=== PATIENT | female | born 1940 | race Caucasian/White ===

== ENCOUNTER → 2016-06-10 | Outpatient (CLI) | payer OTHER ==
[~2016-06-10] VITALS: Ht 157.5 cm; Wt 59.5 kg
[~2016-06-10] MED LIST: ACETAMINOPHEN-1 EAC1 PO; ACTONEL 150 MG150 MG PO; AMOX TR-K CLV1 EAC3 PO; ASPIRIN81 M2 PO; B COMPLETE1 EAC1 PO; BRINTELLIX5 MG PO; CALCIUM500 MG PO; CELEBREX 200 M200 M1 PO; CELEBREX 200 M200 MG PO; CENTRUM SILVER1 EAC4 PO; CLONAZEPAM 0.50.5 M1 PO; CLONAZEPAM 1 MG1 M1 PO; CLONAZEPAM PO; CLONAZEPAM2 MG PO; COMPAZINE5 M1 PO; DILAUDID 2 MG TA2 MG PO; DURAGESIC1 EACH TD; FENTANYL PA12 MCG/HR TD; FENTANYL PA12 MCG/HR TP; FENTANYL PA25 MCG/HR TD; FISH OIL 1,001000 M2 PO; HYDROCODON-ACE1 EAC5 PO; HYDROCODON-ACE1 EAC7 PO; HYDROCODONE-AP1 EA11 PO; HYDROXYCHLOROQ200 M1 PO; IMITREX 50 MG T50 MG PO; LINZESS145 MCG PO; LIPITOR 20 MG T20 M1 PO; LYRICA 50 MG50 MG PO; MEDROLDOSEPACK PO; MELATONIN3 MG PO; MELOXICAM7.5 MG PO; METOCLOPRAMIDE 55 M1 PO; METOPROLOL SUCC25 M1 PO; MIRALAX17 GM PO; NORCO 10-325 T1 EACH PO; NORCO 5-325 TA1 EACH PO; OXYCODONE-ACET1 EACH PO; PERCOCET 10-321 EACH PO; PERCOCET 5-3251 EACH PO; PHENERGAN 25 MG25 M1 PO; TRAMADOL 50 MG50 MG PO; TRAMADOL HCL50 MG PO; VITAMIN D2000 UNIT PO; WELLBUTRIN 100100 MG PO; [UNRECOGNIZED DRUG - OTHER] PO
--- NOTE | ~2016-06-10 | HPC ---
[address] [place] [address] PAIN MANAGEMENT CONSULTATION Name: TAMRA TEJEDA [facility] [id number] Admission: 06/10/16 Attend Phys: Parker Strange DO Discharge: Date of : 42 Report #: [id number] THIS REPORT FOR: //name// CC: Peri Strange The patient is a pleasant 75-year-old female being treated for bilateral DJD (knees), chronic pain syndrome requiring complex medication management. Last seen in pain clinic on 06/04/2016. We ordered x-rays of her knees, mild tricompartment DJD in the right knee and moderate DJD in the left knee. Her right knee is more problematic. In last visit, we had discussed moving forward with a series of Synvisc injections. She had a series of Synvisc injections in this right knee nearly a year ago in July and August of 2015 with good relief for greater than 6 months. ASSESSMENT: Symptomatic degenerative joint disease, right knee, subjective pain score 4 on 0-10 visual analog scale. PROCEDURE NOTE: After written informed consent was obtained, the patient was taken to fluoroscopy suite, placed in supine position with bolstering to the right knee. After surgical prep and drape, skin wheal with Xylocaine was raised. A 22-gauge Angiocath was inserted from a superior lateral aspect in an inferior medial trajectory under the patella. Imaging showed good needle placement. Fluoroscopy time was under 5 seconds, 2 mL of Synvisc (Hylan G-F 20) was injected. The Angiocath was removed. The area was cleansed, Band-Aids applied. The patient was told to watch the area for signs of infection including swelling, erythema, generalized malaise, or hyperpyrexia. Follow up in 1 week for repeat. By: [id number] Parker Strange DO /nt
== END | disposition home or self-care (01) ==
LOC: PAIN 06-05 12:35
DX: M17.11 Unilateral primary osteoarthritis, right knee (principal); G89.4 Chronic pain syndrome; G43.909 Migraine, unspecified, not intractable, without status migrainosus; Z87.891 Personal history of nicotine dependence

== ENCOUNTER → 2016-06-18 | Outpatient (CLI) | payer OTHER ==
[~2016-06-18] VITALS: Ht 157.5 cm; Wt 60.1 kg
--- NOTE | ~2016-06-18 | HPC ---
[facility] [place] [address] PAIN MANAGEMENT CONSULTATION Name: TAMRA TEJEDA [facility] [id number] Admission: 06/18/16 Attend Phys: Parker Strange DO Discharge: Date of : 42 Report #: [id number] THIS REPORT FOR: //name// CC: Peri Strange SUBJECTIVE: The patient is a very pleasant 75-year-old female being treated for DJD, right knee. She also has comorbidities with chronic pain syndrome requiring complex medication management. She had her first in the series of 3 Synvisc injections, last week, 06/10/2016. She presents to pain clinic today for injection #2. She has noted only nominal relief for the first injection, as to be expected. PHYSICAL EXAMINATION: Unchanged. Vital signs are stable. She is afebrile. There is no ballottable edema in the right knee. ASSESSMENT: Symptomatic degenerative joint disease, right knee. PROCEDURE: Synvisc injection #2, right knee under fluoroscopy. PROCEDURE: After written and informed consent was obtained, the patient taken to fluoroscopy suite, placed in prone position. After sterile prep and drape, skin wheal was raised. Skin wheal with Xylocaine was raised. A #20-gauge Angiocath was placed from superior lateral entry point in an inferior medial trajectory under the patella, negative aspiration was accomplished. AP and lateral projections showed good needle placement with a needle and catheter in the joint. 2 mL o Synvisc (Hylan G-F 20) was injected and the catheter was removed. The area was cleansed, Band-Aids applied. The patient monitored for an appropriate period of time, discharged in good stable condition, told to use ice to the area today. Follow up in 1 week for injection #3. <ELECTRONICALLY SIGNED> By: Parker Strange DO 06/21/16 1130 1009 1055 Parker Strange DO /nt
[2016-06-18 10:08] VITALS: BP 119/75
== END ==
LOC: PAIN 07:01
DX: M17.11 Unilateral primary osteoarthritis, right knee (principal); G89.4 Chronic pain syndrome; Z87.891 Personal history of nicotine dependence

== ENCOUNTER → 2016-06-25 | Outpatient (CLI) | payer OTHER ==
[~2016-06-25] VITALS: Ht 157.5 cm; Wt 60.3 kg
--- NOTE | ~2016-06-25 | HPC ---
[address] [address] PAIN MANAGEMENT CONSULTATION Name: TAMRA TEJEDA [facility]: [facility] [id number] Admission: 06/25/16 Attend Phys: Parker Strange DO Discharge: Date of : 42 Report #: [id number] THIS REPORT FOR: //name// CC: Peri Strange DATE OF SERVICE: 06/25/2016 The patient is a 75-year-old female, prior seen in the pain clinic for DJD, right knee and chronic pain concerns, requiring complex medication management. She presents to pain clinic today for a Synvisc injection #3 in the right knee. The patient notes incremental improvement with the injections. The patient wished to proceed with the injection today. PROCEDURE NOTE: She was taken to fluoroscopy suite, placed in supine position. Skin overlying the knee was prepped with ChloraPrep. Skin wheal with Xylocaine was raised. We chose a superior medial entry point with an inferior lateral trajectory. Needle was easily placed. AP and lateral fluoroscopy images show good placement. A 20-gauge Angiocath was easily advanced under the patella. Negative aspiration was accomplished, 2 mL of hylan GF-20 (Synvisc) was injected. Catheter was removed, area was cleansed, Band-Aids applied. The patient monitored for an appropriate period of time, discharged in good and stable condition. Fluoroscopy was 10 seconds. The patient will follow up in 5 weeks for medication management. <ELECTRONICALLY SIGNED> By: Parker Strange DO 06/25/16 1138 1039 1111 Parker Strange DO /nt
[2016-06-25 10:12] VITALS: BP 136/77
== END | disposition home or self-care (01) ==
LOC: PAIN 06:57
DX: M17.11 Unilateral primary osteoarthritis, right knee (principal); G89.29 Other chronic pain; G43.909 Migraine, unspecified, not intractable, without status migrainosus; G45.9 Transient cerebral ischemic attack, unspecified

== ENCOUNTER → 2016-06-28 | Outpatient (CLI) | payer OTHER ==
--- NOTE | ~2016-06-28 | 2DMMODE ---
[facility] [place] [address] 2 D/M-MODE ECHOCARDIOGRAM Name: TAMRA TEJDEA Room #: REG [facility]#: [id number] Admission: 06/28/16 Attend Phys: Austin Mitchell MD Discharge: Date of : 42 Date of Service: 06/28/16 1349 Report #: [id number] THIS REPORT FOR: //name// APPROVED REPORT Study performed: 06/28/2016 12:00:21 EXAM: Comprehensive 2D, Doppler, and color-flow Echocardiogram Patient Location: Out-Patient Blood Pressure: 76/58 mmHg HR: 55 bpm Rhythm: NSR Other Information Study Quality: Good/Low parasternal window Indications CAD Hx: NSTEMI, COPD, HTLP, CAD 2D Dimensions RVDd: 34.96 mm LVEF(%): 55.51 (>50%) IVSd: 9.01 (7-11mm) LVOT Diam: 19.38 (18-24mm) LVDd: 42.92 mm PWd: 8.62 (7-11mm) LVDs: 30.62 (25-40mm) Aortic Root: 36.76 mm Lakhani's LVEF: 55.51 % Volumes Left Atrial Volume (Systole) Single Plane 4CH: 25.63 mL Single Plane 2CH: 39.19 mL LA ESV Index: 24.00 mL/m2 Aortic Valve AoV Peak Cayetano.: 1.38 m/s AI PHT: 664.03 ms AO Peak Gr.: 7.64 mmHg LV Max P.66 mmHg LV Max: 1.29 m/s AI Vmax: 4.12 m/s AI [place]: 1.80 m/s2 Mitral Valve [facility] [address] [address] 2 D/M-MODE ECHOCARDIOGRAM Name: TAMRA TEJEDA Abrahan Room #: REG [facility]#: [id number] Admission: 06/28/16 Attend Phys: uAstin Mitchell MD Discharge: Date of : 42 Date of Service: 06/28/16 1349 Report #: [id number] MV PHT: 54.15 ms MV E Max Cayetano.: 1.00 m/s E/A Ratio: 1.2 MV A Cayetano.: 0.81 m/s MV Decel. Time: 186.74 ms Pulmonary Valve PV Peak Cayetano.: 0.98 m/s PV Peak Gr.: 3.86 mmHg Tricuspid Valve TR Peak Cayetano.: 2.95 m/s RAP Estimate: 5.00 mmHg TR Peak Gr.: 34.85 mmHg RVSP: 40.00 mmHg Left Ventricle The left ventricle is normal size. There is normal LV segmental wall motion. There is normal left ventricular wall thickness. The left ventricular systolic function is normal. LVEF is 55%. Grade II - pseudonormal filling dynamics. Right Ventricle The right ventricle is normal size. The right ventricular systolic function is normal. Atria The left atrium size is normal. The right atrium size is normal. Aortic Valve Aortic valve leaflets are mildly thickened. Mild aortic regurgitation. There is no aortic valvular stenosis. Mitral Valve The mitral valve is normal in structure. Mild mitral regurgitation. Tricuspid Valve The tricuspid valve is normal in structure. There is mild tricuspid regurgitation. The right atrial pressure is estimated at 5 mmHg. There is mild-moderate pulmonary hypertension. Estimated PAP of 40mmHg. Pulmonic Valve The pulmonary valve is normal in structure. Mild pulmonic regurgitation. Great Vessels There is borderline aortic root dilation. Ascending aorta is not well visualized. IVC is normal in size and collapses >50% with [facility] [address] [place] [address] 2 D/M-MODE ECHOCARDIOGRAM Name: TAMRA TEJEDA Room #: REG [facility]#: [id number] Admission: 06/28/16 Attend Phys: Austin Mitchell MD Discharge: Date of : 42 Date of Service: 06/28/16 1349 Report #: [id number] inspiration. Pericardium There is no pericardial effusion. <Conclusion> The left ventricle is normal size. There is normal left ventricular wall thickness. The left ventricular systolic function is normal. The right ventricle is normal size. The left atrium size is normal. Mild aortic regurgitation. Mild mitral regurgitation. There is mild tricuspid regurgitation. The right atrial pressure is estimated at 5 mmHg. There is mild-moderate pulmonary hypertension. Estimated PAP of 40mmHg. <ELECTRONICALLY SIGNED> By: Austin Mitchell MD 06/28/16 1349 1349 1349 Austin Mitchell MD /INF
== END ==
LOC: CV 12:11
DX: I25.10 Atherosclerotic heart disease of native coronary artery without angina pectoris (principal); I21.4 Non-ST elevation (NSTEMI) myocardial infarction; J44.9 Chronic obstructive pulmonary disease, unspecified

== ENCOUNTER → 2016-07-19 | Outpatient (CLI) | payer OTHER ==
[~2016-07-19] VITALS: Ht 157.5 cm; Wt 58.1 kg
[~2016-07-19] MED LIST changes: +VENLAFAXINE HCL25 MG PO
--- NOTE | ~2016-07-19 | HPC ---
[facility] [place] [address] PAIN MANAGEMENT CONSULTATION Name: TAMRA TEJEDA Room #: REG [facility] Angel#: [id number] Admission: 07/19/16 Attend Phys: Parker Strange DO Discharge: Date of : 42 Report #: [id number] THIS REPORT FOR: //name// CC: Peri Strange The patient is a 76-year-old female, prior seen in the pain clinic 06/25/2016. She completed a series of three right Synvisc injections for right knee. Was c ontinued on her baseline medication including Duragesic 25 mcg q. 72 hours and Tylenol No. 3 one tablet up to 4 times a day as needed for pain. Returns to pain clinic today, she was seen for a moderately prolonged visit from 12:47 to 13:15, greater than 50% of the 25+ minute visit was spent counseling the patient. She notes while she was generally doing well with her current medications, she has been having some increasing issues recently, states she has been very drowsy feeling "faint" easily diaphoretic. She had travelled to [place] to visit her brother for a week, states she did not do much there and because of that did not need much breakthrough pain medicine. She was curious if she had gone from 3-4 per day to 0-1 per day use of her Tylenol No. 3 that she could be experiencing some opiate withdrawal symptoms. I assured her that with 25 mcg of Duragesic on board that this would be fairly unlikely, codeine is a fairly weak opiate agonist. Nonetheless, she does have ongoing issues feeling a little bit again sweaty, dizzy, faint and sleeping a great deal. She notes if she does any activity, bending to do a load of wash her back pain becomes quite problematic. She has had a history of a "mild heart attack" in the distant past. She denies any acute chest pain. PHYSICAL EXAMINATION: GENERAL: Shows a 76-year-old female, BMI is 23.4 kilograms per meter squared. She does appear a little bit pale. VITAL SIGNS: Blood pressure is 115/76, pulse 64, respirations are 16. Room air oxygen saturation 97%. She is afebrile with a temperature 98.1. PULMONARY: Auscultation is unremarkable. HEART: Regular rhythmical without murmur. MUSCULOSKELETAL: Diffuse tenderness across the low back. No discrete trigger points are noted though she has some tenderness in the thoracic and lumbar paravertebral muscles. ASSESSMENT: Degenerative joint disease, bilateral knees. Again increasing pain in the right knee, though no ballotable edemas are appreciable here today. Diffuse tenderness in the back with a component of axial back pain. Some chronic depression and anxiety, chronic pain syndrome requiring complex medication management. [facility] [address] [place] [address] PAIN MANAGEMENT CONSULTATION Name: TAMRA TEJEDA Room #: REG [facility] Ortiz#: [id number] Admission: 07/19/16 Attend Phys: Parker Strange DO Discharge: Date of : 42 Report #: [id number] RECOMMENDATION: After discussion with the patient today, we have ultimately elected to continue Duragesic at 25 mcg q. 72 hours and Tylenol No. 3 one tablet 3-4 times a day as needed for breakthrough pain. I have added venlafaxine 25 mg a half tablet at bedtime for 1 week and then up to one tablet, hopefully this can help with the myofascial component of pain. I did suggest that if she continues to feel somewhat presyncopal type symptoms and continue to have some diaphoresis she absolutely needs to follow up with her generalist physician, Dr. Peri Bryant. I strongly encouraged her to make an appointment today to see Dr. Bryant later this week. She can always cancel that appointment if she is feeling better, but I would like for her to get in to see her generalist physician should any of her current symptoms continue. I did suggest if she has any significant untoward changes in her health, i.e., weakness, syncope, nausea, chest pain she needs to call 911 and get to the ER. The patient discharged in good and stable condition after moderately prolonged visit, greater than 25 minutes was spent counseling the patient. Medications as noted above. Follow up in 2 months to evaluate efficacy of medication changes. <ELECTRONICALLY SIGNED> By: Parker Strange DO 07/21/16 0932 1526 0234 Parker Strange DO /nt
[2016-07-19 12:40] VITALS: BP 115/76
== END ==
LOC: PAIN 07-15 07:03
DX: M17.0 Bilateral primary osteoarthritis of knee (principal); F41.8 Other specified anxiety disorders; G89.29 Other chronic pain; Z87.891 Personal history of nicotine dependence

== ENCOUNTER → 2016-08-19 | Outpatient (CLI) | payer OTHER ==
[~2016-08-19] VITALS: Ht 157.5 cm; Wt 60.1 kg
[~2016-08-19] MED LIST changes: +HYDROCODONE-AP1 EAC6 PO; +MS CONTIN15 MG PO
--- NOTE | ~2016-08-19 | HPC ---
[facility] [place] [address] PAIN MANAGEMENT CONSULTATION Name: TAMRA TEJEDA Room #: REG [facility] Ortiz#: [id number] Admission: 08/19/16 Attend Phys: Parker Strange DO Discharge: Date of : 42 Report #: [id number] THIS REPORT FOR: //name// CC: Peri Strange HISTORY OF PRESENT ILLNESS: The patient is a 76-year-old female well known to the pain clinic, being treated for axial back pain and bilateral knee osteoarthritis requiring complex medication management. She was last seen in the pain clinic 07/19/2016 and continued on Duragesic 25 mcg q. 72 hours and Tylenol No. 3 for breakthrough pain. I initiated venlafaxine 25 mg at bedtime to help with chronic pain syndrome. She is status post 3 Synvisc injections in the right knee with some improvement of pain. Concern at last visit, she was feeling a little diaphoretic and had some presyncopal symptoms. I suggested she try using her p.r.n. Tylenol little less frequently. The patient returns to clinic today. She has returned to her general health status, though she does note that she feels her current medications are not providing sufficient analgesia, noting some tolerance to the medications. The patient did see a Dr. Cooley at the [facility]. This orthopedic surgeon told her that she probably was not a candidate for total knee arthroplasty. PHYSICAL EXAMINATION: Shows a 76-year-old female, BMI is 24.2 kg/m2. Vital signs stable as noted on the EMR. She is tender in the T12-L2 lumbar paravertebral muscles. No discrete trigger points are noted. Lower extremity strength is generally symmetric, no ballotable edema appreciable in the knees, though subjective pain is noted here. We reviewed the fact that opiate medications are being used to provide analgesia adequate to support activities of daily living, not attempting to achieve a specific pain score on the 0-10 Visual Analog Scale. The current opiate medications are providing sufficient analgesia to allow the patient to participate in activities of daily living. The patient is not exhibiting any aberrant behavior suggestive of drug diversion. The patient is not having any adverse reactions to medications. The patient is not suffering from daytime somnolence or mental acuity changes. The patient is managing opiate-induced constipation with appropriate cjho-gyj-tljpiwi agents and dietary considerations. The patient was counseled on concern for caution with operating a motor vehicle while using opiate medications. A physical exam was performed and the patient's functional status was evaluated. All patients with back pain were advised against the bed rest greater than 4 days and were advised to return to normal activities. Pain score assessment was noted and the treatment plan was reviewed with the patient. All current [address] [address] PAIN MANAGEMENT CONSULTATION Name: TAMRA TEJEDA Room #: REG CL Angel#: [id number] Admission: 08/19/16 Attend Phys: Parker Strange DO Discharge: Date of : 42 Report #: [id number] medications, both prescribed and OTC were reviewed and reconciled on the electronic medical record. Tobacco screening was accomplished and smoking cessation was advised when indicated. BMI was noted and diet/exercise modification was recommended for all patients following outside normal parameters. I reviewed with the patient today their responsibilities to safeguard prescription medications, reviewed their responsibility to utilize medications only as prescribed by the physician. They are to seek and receive pain medications only from 1 physician group ( [facility]). They are to use 1 pharmacy and keep the clinic informed if they change pharmacies. Their responsibilities include making followup visits in a timely fashion and to avoid abrupt discontinuation of medication usage. Their responsibilities further include bringing their medications (bottles from the pharmacy with residual pills) to the visit for possible confirmation of pill counts and the patient understands it is their responsibility to submit to random drug screens to ensure both that the medications prescribed are present, and that no other controlled substances are present. All prescriptions provided today were generated electronically. ASSESSMENT: Chronic pain syndrome, osteoarthritis affecting bilateral knees and axial back pain requiring complex medication management. I reviewed the patient's diagnostic studies including x-rays of the thoracic spine and an MRI of the lumbar spine all somewhat dated from [id number], but no dramatic pathology was noted. RECOMMENDATIONS: I had a long discussion with the patient today, in fact she was seen from 1235 to 1300. Greater than 50% of this 25+ minute visit was spent counseling the patient. We have elected to try an opiate rotation, discontinued Duragesic tonight and start MS Contin 15 mg 1 at bedtime and then q.8 hours the subsequent day and ongoing. We will discontinue Tylenol No. 3 for breakthrough pain and try hydrocodone 5/325, limit to 2-3 tablets a day, 75 tablets for 30 days. We will have the patient follow up in 3-4 weeks to evaluate efficacy of medication changes. <ELECTRONICALLY SIGNED> By: Parker Strange DO 08/20/16 0713 1335 0220 Parker Strange DO /nt
[2016-08-19 12:29] VITALS: BP 121/71
== END | disposition home or self-care (01) ==
LOC: PAIN 06:29
DX: M17.0 Bilateral primary osteoarthritis of knee (principal); G89.4 Chronic pain syndrome; Z98.890 Other specified postprocedural states; Z87.891 Personal history of nicotine dependence

== ENCOUNTER → 2016-09-16 | Outpatient (CLI) | payer OTHER ==
[~2016-09-16] VITALS: Ht 157.5 cm; Wt 59.4 kg
[~2016-09-16] MED LIST changes: +MORPHABOND ER15 MG PO
--- NOTE | ~2016-09-16 | HPC ---
[facility] [address] PAIN MANAGEMENT CONSULTATION Name: TAMRA TEJEDA Room #: REG [facility].#: [id number] Admission: 09/16/16 Attend Phys: Parker Strange DO Discharge: Date of : 42 Report #: [id number] THIS REPORT FOR: //name// CC: Peri Strange HISTORY OF PRESENT ILLNESS: The patient is a 76-year-old female being treated for axial back pain, DJD affecting bilateral knees, right greater than left, requiring complex medication management. Last visit 08/19/2016, we rotated from Duragesic 25 mcg and Tylenol No.3 for breakthrough pain to MS Contin 15 mg q. 8 hours and hydrocodone 5/325 for breakthrough pain. She prior had had Synvisc injection to the right knee back in May. Returns to pain clinic today. She thinks morphine is affective, but thinks the hydrocodone is not. In fact, she only used about 18 of the hydrocodone tablets, she brought back 47 for discharge. We tried venlafaxine to help with sleep and some anxiety. She felt it left her too hungover. Notes today pain is 8 on a 0-10 visual analog scale, primarily right knee. The pain is exacerbated with standing and walking. PHYSICAL EXAMINATION: Shows a 76-year-old female, BMI is 24 kilograms per meter squared. Vital signs are stable. Does have some ballottable edema in the right knee, no erythema or calor is noted. We reviewed the fact that opiate medications are being used to provide analgesia adequate to support activities of daily living, not attempting to achieve a specific pain score on the 0-10 Visual Analog Scale. The current opiate medications are providing sufficient analgesia to allow the patient to participate in activities of daily living. The patient is not exhibiting any aberrant behavior suggestive of drug diversion. The patient is not having any adverse reactions to medications. The patient is not suffering from daytime somnolence or mental acuity changes. The patient is managing opiate-induced constipation with appropriate kywu-zam-gqygubb agents and dietary considerations. The patient was counseled on concern for caution with operating a motor vehicle while using opiate medications. A physical exam was performed and the patient's functional status was evaluated. All patients with back pain were advised against the bed rest greater than 4 days and were advised to return to normal activities. Pain score assessment was noted and the treatment plan was reviewed with the patient. All current medications, both prescribed and OTC were reviewed and reconciled on the electronic medical record. Tobacco screening was accomplished and smoking cessation was advised when indicated. BMI was noted and diet/exercise modification was recommended for all patients following outside normal parameters. I reviewed with the patient today their responsibilities to [address] [address] PAIN MANAGEMENT CONSULTATION Name: TAMRA TEJEDA Room #: REG CL Angel#: [id number] Admission: 09/16/16 Attend Phys: Parker Strange DO Discharge: Date of : 42 Report #: [id number] prescription medications, reviewed their responsibility to utilize medications only as prescribed by the physician. They are to seek and receive pain medications only from 1 physician group ( [facility]). They are to use 1 pharmacy and keep the clinic informed if they change pharmacies. Their responsibilities include making followup visits in a timely fashion and to avoid abrupt discontinuation of medication usage. Their responsibilities further include bringing their medications (bottles from the pharmacy with residual pills) to the visit for possible confirmation of pill counts and the patient understands it is their responsibility to submit to random drug screens to ensure both that the medications prescribed are present, and that no other controlled substances are present. All prescriptions provided today were generated electronically. ASSESSMENT: Degenerative joint disease, axial back pain, right knee ballottable edema requiring complex medication management. RECOMMENDATION: 1. We have elected to continue MS Contin 15 mg q. 8 hours. We will rotate from hydrocodone back to Tylenol No.3 for breakthrough pain and limit 75 tablets, 1 tablet 2-3 times a day for breakthrough pain. 2. We talked about doing a Synvisc in her right knee, arthrocentesis and perhaps steroid injection. Typically, she has had injections at Dr. Say More's office with some efficacy. I told her either he or I can inject the knee, but if the ballotable edema continues, we should probably aspirate it, I think it will help with her comfort. She does note that the amount of edema somewhat waxes and wanes. By: [id number] Parker Strange, DO /nt
[2016-09-16 12:51] VITALS: BP 115/73
== END | disposition home or self-care (01) ==
LOC: PAIN 06:45
DX: M17.0 Bilateral primary osteoarthritis of knee (principal); Z87.891 Personal history of nicotine dependence

== ENCOUNTER → 2016-10-04 | Outpatient (CLI) | payer OTHER ==
[~2016-10-04] VITALS: Ht 157.5 cm; Wt 58.6 kg
[2016-10-04 13:38] VITALS: BP 123/76
== END | disposition home or self-care (01) ==
LOC: PAIN 06:46
DX: M17.11 Unilateral primary osteoarthritis, right knee (principal); M54.16 Radiculopathy, lumbar region; Z87.891 Personal history of nicotine dependence

== ENCOUNTER → 2016-11-19 | Outpatient (CLI) | payer OTHER ==
[~2016-11-19] VITALS: Ht 157.5 cm; Wt 60.3 kg
--- NOTE | ~2016-11-19 | HPC ---
[facility] [place] [address] [address] PAIN MANAGEMENT CONSULTATION Name: TAMRA TEJEDA Room #: REG [facility] Angel#: [id number] Admission: 11/19/16 Attend Phys: Parker Strange DO Discharge: Date of : 42 Report #: [id number] THIS REPORT FOR: //name// CC: Peri Strange The patient is a 76-year-old female being treated for lumbar radiculopathy, DJD affecting bilateral knees, axial back pain requiring complex medication management. Last seen in pain clinic on 10/04/2016. The patient is having increasing pain in the left knee. I did a left knee arthrocentesis and steroid injection. She notes significant improvement in pain with this. She is continued on MS Contin 15 mg q.8 hours (rotated from Duragesic 25 mcg q.72 hours, I believe, 2 office visits ago). Continue Tylenol No. 3 for breakthrough pain. 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 Last urine drug screen on 11/07/2015 was positive for prescribed medications. The patient reports to pain clinic today noting she is actually doing better than she has in some time. Subjective pain score is absent today, gets up to 3 or 4 VAS score with activity. PHYSICAL EXAMINATION: Shows a pleasant 76-year-old female, BMI is 24.3 kg/m2. Vital signs are stable as noted on the EMR. Cervical range of motion is adequate. Rises from chair using armrest. Gait is tandem today. Lumbar flexion is good to just about 90 degrees. No ballottable edema noted in either knee. Extremity range of motion is excellent with flexion to the knees to 110 degrees bilaterally. We reviewed the fact that opiate medications are being used to provide analgesia adequate to support activities of daily living, not attempting to achieve a specific pain score on the 0-10 Visual Analog Scale. The current opiate medications are providing sufficient analgesia to allow the patient to participate in activities of daily living. The patient is not exhibiting any aberrant behavior suggestive of drug diversion. The patient is not having any adverse reactions to medications. The patient is not suffering from daytime somnolence or mental acuity changes. The patient is managing opiate-induced constipation with appropriate haoc-oen-raahzqj agents and dietary considerations. The patient was counseled on concern for caution with operating a motor vehicle while using opiate medications. A physical exam was performed and the patient's functional status was evaluated. All patients with back pain were advised against the bed rest greater than 4 days and were advised to return to normal activities. Pain score assessment was noted and the treatment plan was reviewed with the patient. All current medications, both prescribed and OTC were reviewed and reconciled on the electronic medical record. Tobacco screening was accomplished and smoking cessation was advised when indicated. BMI was noted and diet/[place] [address] PAIN MANAGEMENT CONSULTATION Name: TAMRA TEJEDA Room #: REG [facility] Ortiz#: [id number] Admission: 11/19/16 Attend Phys: Parker Strange DO Discharge: Date of : 42 Report #: [id number] modification was recommended for all patients following outside normal parameters. I reviewed with the patient today their responsibilities to safeguard prescription medications, reviewed their responsibility to utilize medications only as prescribed by the physician. They are to seek and receive pain medications only from 1 physician group ([facility]). They are to use 1 pharmacy and keep the clinic informed if they change pharmacies. Their responsibilities include making followup visits in a timely fashion and to avoid abrupt discontinuation of medication usage. Their responsibilities further include bringing their medications (bottles from the pharmacy with residual pills) to the visit for possible confirmation of pill counts and the patient understands it is their responsibility to submit to random drug screens to ensure both that the medications prescribed are present, and that no other controlled substances are present. All prescriptions provided today were generated electronically. ASSESSMENT: Symptomatic degenerative joint disease, bilateral knees; lumbar radiculopathy; axial back pain requiring complex medication management, stable on baseline medications. RECOMMENDATION: Continue MS Contin 15 mg q.8 hours, continue Tylenol No. 3 p.r.n. breakthrough pain 1-3 tablets a day. The patient does not require renewal of the Tylenol No. 3 prescription. She uses it fairly infrequently and not daily. I did, however, take the liberty of renewing 2 months of the MS Contin baseline opiate. Follow up in 2 months, earlier if needed. <ELECTRONICALLY SIGNED> By: Parker Strange DO 11/22/16 1253 1150 1950 Parker Strange DO /nt
[2016-11-19 10:34] VITALS: BP 120/89
== END ==
LOC: PAIN 07:03
DX: M17.0 Bilateral primary osteoarthritis of knee (principal); M54.16 Radiculopathy, lumbar region

== ENCOUNTER → 2016-12-10 | Outpatient (CLI) | payer OTHER ==
[~2016-12-10] VITALS: Ht 157.5 cm; Wt 61.1 kg
--- NOTE | ~2016-12-10 | HPC ---
[facility] [place] [address] [address] [place] [address] PAIN MANAGEMENT CONSULTATION Name: TAMRA TEJEDA [id number] Admission: 12/10/16 Attend Phys: Parker Strange DO Discharge: Date of : 42 Report #: [id number] THIS REPORT FOR: //name// CC: Peri Strange DATE OF SERVICE: 12/10/2016 The patient is a 76-year-old female, long known to the pain clinic, typically treated for high-risk complex medication management for pain generators including bilateral knees, axial back pain, lumbar radiculopathy. Last seen in pain clinic 11/19/2016, continued on baseline medication including MS Contin 15 mg q. 8 hours with Tylenol No 3 for breakthrough pain. I had prior done a right knee steroid injection and arthrocentesis on 10/04/2016, right knee is getting better. She returns to pain clinic today, she made an appointment earlier this week with significant ongoing pain, left knee. She had run out of her Celebrex and due to holiday earlier in the month, she was actually out for 4 days. She noted significant exacerbation of pain, but she is back on the Celebrex and notes that actually today, the left knee seems to be doing a little better, but pain has been quite problematic in that left knee to the point that she has been unable to bear weight. She notes that she has a little bit of edema in the leg and again significant pain with weightbearing. She denies prior antecedent trauma. Does note, however, today that in general, the knee seems to be improved. PHYSICAL EXAMINATION: Shows a 76-year-old female, BMI is 24.6 kilograms per meter squared. Blood pressure 130/92, pulse 68, respirations are 12. Rises from chair using armrest, nominally antalgic gait. Again, the right knee is fairly unremarkable. Left knee does show some ballottable edema and there is crepitance with deviation of the patella. The medial and lateral collateral as well as the anterior and posterior cruciate ligaments are all intact. ASSESSMENT: Degenerative joint disease, bilateral knees, left knee with still some ballottable edema, though symptoms seemed to be improving at present. RECOMMENDATIONS: No interventional therapy at this time. We will tentatively make an appointment to see the patient in 2 weeks. If pain is continuing in that knee, we will consider left knee arthrocentesis and steroid injection. If, however, she is doing reasonably well, we will have her cancel that appointment, simply follow up as needed for medication management. Discharged in good and stable condition. By: 1444 10 Parker Strange DO /nt
[2016-12-10 10:51] VITALS: BP 130/92
== END | disposition home or self-care (01) ==
LOC: PAIN 10:29
DX: M17.0 Bilateral primary osteoarthritis of knee (principal); R60.9 Edema, unspecified; M54.16 Radiculopathy, lumbar region; G43.909 Migraine, unspecified, not intractable, without status migrainosus; Z87.891 Personal history of nicotine dependence; Z88.2 Allergy status to sulfonamides; Z88.8 Allergy status to other drugs, medicaments and biological substances; Z79.891 Long term (current) use of opiate analgesic; Z98.890 Other specified postprocedural states; Z91.040 Latex allergy status; Z88.1 Allergy status to other antibiotic agents; Z86.73 Personal history of transient ischemic attack (TIA), and cerebral infarction without residual deficits

== ENCOUNTER → 2016-12-24 | Outpatient (CLI) | payer OTHER ==
[~2016-12-24] VITALS: Ht 157.5 cm; Wt 61.8 kg
--- NOTE | ~2016-12-24 | HPC ---
[facility] [address] [facility] [place] [address] PAIN MANAGEMENT CONSULTATION Name: TAMRA TEJEDA Room #: REG [facility] Klever.#: [id number] Admission: 12/24/16 Attend Phys: Parker Strange DO Discharge: Date of : 42 Report #: [id number] THIS REPORT FOR: //name// CC: Peri Strange The patient is a 76-year-old female, long treated in the pain clinic for symptomatic axial back pain, lumbar radiculopathy, DJD affecting bilateral knees requiring high-risk complex medication management. The patient has been stable on MS Contin 15 mg q. 8 hours with rare Tylenol No 3 for breakthrough pain. We resumed Celebrex at last visit (this was written by Dr. Say More). I had a done a right knee arthrocentesis and steroid injection in September. This afforded transient relief, but pain recurred. She prior had had Synvisc injection to the right knee in May x 3. She notes ongoing pain in right and left knee. I have reviewed x-rays of the knees from 06/04/2016 showing tricompartment DJD in the right knee and primarily medial compartment DJD in the left knee. PHYSICAL EXAMINATION: Today shows nominal ballotable edema in the right knee. Ligaments are intact. Left knee is less unremarkable exam, but ongoing pain. Rates her subjective pain score 6 on VAS. Vital signs otherwise stable. ASSESSMENT: Axial back pain, degenerative joint disease bilateral knees and lumbar radiculopathy requiring high-risk complex medication management, stable on baseline medications. We reviewed the fact that opiate medications are being used to provide analgesia adequate to support activities of daily living, not attempting to achieve a specific pain score on the 0-10 Visual Analog Scale. The current opiate medications are providing sufficient analgesia to allow the patient to participate in activities of daily living. The patient is not exhibiting any aberrant behavior suggestive of drug diversion. The patient is not having any adverse reactions to medications. The patient is not suffering from daytime somnolence or mental acuity changes. The patient is managing opiate-induced constipation with appropriate mixq-bpt-iofmwcl agents and dietary considerations. The patient was counseled on concern for caution with operating a motor vehicle while using opiate medications. A physical exam was performed and the patient's functional status was evaluated. All patients with back pain were advised against the bed rest greater than 4 days and were advised to return to normal activities. Pain score assessment was noted and the treatment plan was reviewed with the patient. All current medications, both prescribed and OTC were reviewed and reconciled on the electronic medical record. Tobacco screening was accomplished and smoking cessation was advised when indicated. BMI was noted and diet/exercise modification was recommended for all patients following outside normal parameters. I reviewed with the patient today their responsibilities to safeguard prescription medications, reviewed their responsibility to utilize medications [address] [address] PAIN MANAGEMENT CONSULTATION Name: TAMRA TEJEDA Room #: REG [facility] Angel#: [id number] Admission: 12/24/16 Attend Phys: Parker Strange DO Discharge: Date of : 42 Report #: [id number] only as prescribed by the physician. They are to seek and receive pain medications only from 1 physician group ( [facility]). They are to use 1 pharmacy and keep the clinic informed if they change pharmacies. Their responsibilities include making followup visits in a timely fashion and to avoid abrupt discontinuation of medication usage. Their responsibilities further include bringing their medications (bottles from the pharmacy with residual pills) to the visit for possible confirmation of pill counts and the patient understands it is their responsibility to submit to random drug screens to ensure both that the medications prescribed are present, and that no other controlled substances are present. All prescriptions provided today were generated electronically. RECOMMENDATION: 1. Continue MS Contin 15 mg q. 8 hours, reviewed with the patient that it does not have to "8 hours" on the clock, I suggest she take one tablet when she first wakes up, one tablet 6 to 8 hours later and one tablet at bedtime. 2. Referred to Dr. Paul Navarerte for evaluation and consideration for surgical intervention right and possible left knee. 3. Follow up as needed for medication management. Discharged in good and stable condition. <ELECTRONICALLY SIGNED> By: Parker Strange DO 12/27/16 1014 1551 1259 Parker Strange DO /nt
[2016-12-24 12:39] VITALS: BP 112/67
== END | disposition home or self-care (01) ==
LOC: PAIN 07:19
DX: M54.16 Radiculopathy, lumbar region (principal); M17.0 Bilateral primary osteoarthritis of knee; M54.5 Low back pain; Z87.891 Personal history of nicotine dependence

== ENCOUNTER → 2017-01-20 | Outpatient (CLI) | payer OTHER ==
[~2017-01-20] VITALS: Ht 157.5 cm; Wt 62.6 kg
--- NOTE | ~2017-01-20 | HPC ---
[facility] [place] [address] PAIN MANAGEMENT CONSULTATION Name: TAMRA TEJEDA Room #: REG [facility] Ortiz#: [id number] Admission: 01/20/17 Attend Phys: Parker Strange DO Discharge: Date of : 42 Report #: [id number] THIS REPORT FOR: //name// CC: Peri Strange HISTORY OF PRESENT ILLNESS: The patient is a 76-year-old female long known to the pain clinic, being treated for axial back pain, lumbar radiculopathy, DJD bilateral right greater than left knee requiring high risk complex medication management. She has been stable on MS Contin 15 mg q. 8 hours with Tylenol No.3 for breakthrough pain. Last seen in the pain clinic on 12/24/2016. We had trialled Synvisc injections in her right knee with only nominal relief. Ultimately referred her to Dr. Paul Navarrete for consideration for total knee arthroplasty. Assessment at the time of consultation (01/05/2017) was bilateral knee degenerative joint changes, most notable on the right lateral and left medial. An MRI was ordered, though I do not have those results, and the patient has been in contact with Dr. Navarrete's nurse who indicated that she was a candidate to move forward with total knee arthroplasty. I discussed TKA the patient today. Ultimately, I think this is a logical thing to do at this point. She has no other health issues precluding surgery, no significant cardiac disease, renal disease, pulmonary disease. Body mass index 25.2 kilograms per meter squared. Knee pain is her primary rate limiting factor. We reviewed the fact that opiate medications are being used to provide analgesia adequate to support activities of daily living, not attempting to achieve a specific pain score on the 0-10 Visual Analog Scale. The current opiate medications are providing sufficient analgesia to allow the patient to participate in activities of daily living. The patient is not exhibiting any aberrant behavior suggestive of drug diversion. The patient is not having any adverse reactions to medications. The patient is not suffering from daytime somnolence or mental acuity changes. The patient is managing opiate-induced constipation with appropriate oxrz-nsk-agqwlwz agents and dietary considerations. The patient was counseled on concern for caution with operating a motor vehicle while using opiate medications. A physical exam was performed and the patient's functional status was evaluated. All patients with back pain were advised against the bed rest greater than 4 days and were advised to return to normal activities. Pain score assessment was noted and the treatment plan was reviewed with the patient. All current medications, both prescribed and OTC were reviewed and reconciled on the electronic medical record. Tobacco screening was accomplished and smoking cessation was advised when indicated. BMI was noted and diet/exercise modification was recommended for all patients following outside normal parameters. [address] [address] PAIN MANAGEMENT CONSULTATION Name: TAMRA TEJEDA Room #: REG [facility] Ortiz#: [id number] Admission: 01/20/17 Attend Phys: Parker Strange DO Discharge: Date of : 42 Report #: [id number] I reviewed with the patient today their responsibilities to safeguard prescription medications, reviewed their responsibility to utilize medications only as prescribed by the physician. They are to seek and receive pain medications only from 1 physician group ( [facility]). They are to use 1 pharmacy and keep the clinic informed if they change pharmacies. Their responsibilities include making followup visits in a timely fashion and to avoid abrupt discontinuation of medication usage. Their responsibilities further include bringing their medications (bottles from the pharmacy with residual pills) to the visit for possible confirmation of pill counts and the patient understands it is their responsibility to submit to random drug screens to ensure both that the medications prescribed are present, and that no other controlled substances are present. All prescriptions provided today were generated electronically. ASSESSMENT: Symptomatic lumbar radiculopathy, axial back pain, bilateral knee pain secondary to degenerative joint disease, osteoarthritis bilateral knees requiring high risk complex medication management. RECOMMENDATION: Continue MS Contin 15 mg q. 8 hours and Tylenol No.3 75 tablets for 30 days for breakthrough pain. If and when the patient moves forward with total knee arthroplasty, I will be happy to manage postoperative pain, we will likely increase MS Contin 30 mg b.i.d. Continue Tylenol with Codeine for breakthrough pain. Thank you for allowing me to participate in the patient's care. I will keep you abreast of her progress. <ELECTRONICALLY SIGNED> By: Parker Strange DO 01/21/17 0654 1530 2117 Parker Strange DO /nt
[2017-01-20 13:14] VITALS: BP 119/69
== END ==
LOC: PAIN 08:30
DX: M54.16 Radiculopathy, lumbar region (principal); M17.0 Bilateral primary osteoarthritis of knee

== ENCOUNTER → 2017-03-31 | Outpatient (CLI) | payer OTHER ==
[~2017-03-31] VITALS: Ht 167.6 cm; Wt 61.6 kg
[~2017-03-31] MED LIST changes: +DEXTROAMP-AMPHE10 MG PO; +MORPHINE SULFAT15 M3 PO; +MOVANTIK25 MG PO; +SYSTANE ULTRA 010 ML OP; +ZANAFLEX2 MG PO
--- NOTE | ~2017-03-31 | HPC ---
[facility] [address] [address] PAIN MANAGEMENT CONSULTATION Name: TAMRA TEJEDA Room #: REG [facility] Klever.#: [id number] Admission: 03/31/17 Attend Phys: Parker Strange DO Discharge: Date of : 42 Report #: [id number] THIS REPORT FOR: //name// CC: Nima Strange DATE OF SERVICE: 03/31/2017 The patient is a pleasant 76-year-old female, long treated for lumbar radiculopathy; axial back pain; DJD affecting knees, right greater than left, requiring high-risk complex medication management. She was last seen in the Pain Clinic approximately 2 months ago. Continued on MS Contin 15 mg, actually written for q. 8 hours, but she takes it b.i.d., Tylenol No. 3 for breakthrough pain. I referred the patient to Dr. Paul Navarrete for total knee arthroplasty. She has seen him in consultation and they agreed that this is indicated. She is planning on getting the right total knee arthroplasty accomplished with Dr. Navarrete at [facility] mid April. Today, she notes pain is generally well controlled, 6 on a VAS. She notes axial back pain exacerbated with drying her hair, walking and standing. She notes some anxiety about getting the knee replacement, but does acknowledge that this is necessary. She notes she had multiple stressors recently, a favored Nephew in [place] from flu-like symptoms. Her youngest son is in his early 40s, has had some mental issues and had an issue where he had to be admitted to the hospital to adjust his psychiatric medications. With these anxiety stressors, her pain was a little worse, but presently, she notes things seem to be quieting down. PHYSICAL EXAMINATION: Shows a 76-year-old female, BMI is 21.9 kg/m2. Blood pressure is 133/76, pulse 82, respirations 16. Alert and oriented to person, place and time, judged to be a reasonable historian. Rises from chair using armrest, modestly antalgic gait, little ballottable edema in the right knee, axial back pain continues unabated. Lumbar range of motion is modestly limited. Lower extremity strength is symmetric. We reviewed the fact that opiate medications are being used to provide analgesia adequate to support activities of daily living, not attempting to achieve a specific pain score on the 0-10 Visual Analog Scale. The current opiate medications are providing sufficient analgesia to allow the patient to participate in activities of daily living. The patient is not exhibiting any aberrant behavior suggestive of drug diversion. The patient is not having any adverse reactions to medications. The patient is not suffering from daytime [address] [address] PAIN MANAGEMENT CONSULTATION Name: TAMRA TEJEDA [facility] [id number] Admission: 03/31/17 Attend Phys: Parker Strange DO Discharge: Date of : 42 Report #: [id number] somnolence or mental acuity changes. The patient is managing opiate-induced constipation with appropriate vwba-lgx-nyvdzle agents and dietary considerations. The patient was counseled on concern for caution with operating a motor vehicle while using opiate medications. A physical exam was performed and the patient's functional status was evaluated. All patients with back pain were advised against the bed rest greater than 4 days and were advised to return to normal activities. Pain score assessment was noted and the treatment plan was reviewed with the patient. All current medications, both prescribed and OTC were reviewed and reconciled on the electronic medical record. Tobacco screening was accomplished and smoking cessation was advised when indicated. BMI was noted and diet/exercise modification was recommended for all patients following outside normal parameters. I reviewed with the patient today their responsibilities to safeguard prescription medications, reviewed their responsibility to utilize medications only as prescribed by the physician. They are to seek and receive pain medications only from 1 physician group ( [facility]). They are to use 1 pharmacy and keep the clinic informed if they change pharmacies. Their responsibilities include making followup visits in a timely fashion and to avoid abrupt discontinuation of medication usage. Their responsibilities further include bringing their medications (bottles from the pharmacy with residual pills) to the visit for possible confirmation of pill counts and the patient understands it is their responsibility to submit to random drug screens to ensure both that the medications prescribed are present, and that no other controlled substances are present. All prescriptions provided today were generated electronically. Medications were reconciled today. The patient notes Dr. Say More recently started her on 10 mg of an amphetamine salt in the morning for daytime somnolence and lethargy. She notes she has felt a little more productive with this. Fortunately, her appetite has not been suppressed and she seems to be doing reasonably well on this current medication. ASSESSMENT: Symptomatic lumbar radiculopathy, axial back pain, degenerative joint disease affecting bilateral knees, right greater than left, requiring high-risk complex medication management. RECOMMENDATION: Continue MS Contin. I have taken the liberty of writing for 90 tablets with directions to take q. 8 hours. I told her to continue with the b.i.d. dosing and after surgery (total knee arthroplasty, right), increase q. 8 hours. We will have her continue Tylenol No. 3 for breakthrough pain as needed. [address] [address] PAIN MANAGEMENT CONSULTATION Name: TAMRA TEJEDA Room #: REG [facility]#: [id number] Admission: 03/31/17 Attend Phys: Parker Strange DO Discharge: Date of : 42 Report #: [id number] I have taken the liberty of writing for 2 months of current medication. Follow up at that time, earlier if needed. <ELECTRONICALLY SIGNED> By: Parker Strange DO 04/01/17 0810 1420 1913 Parker Strange DO /nt
[2017-03-31 13:55] VITALS: BP 133/76
== END ==
LOC: PAIN 08:19
DX: M54.16 Radiculopathy, lumbar region (principal); M54.9 Dorsalgia, unspecified; M17.4 Other bilateral secondary osteoarthritis of knee; Z79.899 Other long term (current) drug therapy

== ENCOUNTER → 2017-05-12 | Outpatient (CLI) | payer OTHER ==
[~2017-05-12] VITALS: Ht 167.6 cm; Wt 58.4 kg
--- NOTE | ~2017-05-12 | HPC ---
[facility] [place] [address] PAIN MANAGEMENT CONSULTATION Name: TAMRA TEJEDA [id number] Admission: 05/12/17 Attend Phys: Parker Strange DO Discharge: Date of : 42 Report #: [id number] THIS REPORT FOR: //name// CC: Nima Strange The patient is a 76-year-old female, long treated for lumbar radiculopathy, axial back pain, DJD affecting bilateral knees, right greater than left, requiring complex medication management. Last seen in the pain clinic on 03/31/2017. Continued patient on MS Contin 15 mg b.i.d., scheduled for q. 8 hours, but she actually takes it b.i.d., rare Tylenol No. 3 for breakthrough pain. Returns to pain clinic today. She is scheduled to have a total knee arthroplasty at some point in near future with Dr. Navarrete at the [facility]. She notes that the MS Contin may be causing some untoward sedation. Dr. More had started her on an amphetamine salt (dextroamphetamine/amphetamine extended release 10 mg). The patient states that she had a paradoxical soporific effect with this agent and stopped it. Physical exam otherwise is unchanged. A 76-year-old female, BMI is 20.8 kilograms per meter squared. Osteoarthritis affecting bilateral lower extremities, primarily knees, right greater than left. Vital signs are stable as noted in the EMR. Subjective pain score is 4 on a VAS. She states she has not fallen in the last 3 months, but she does feel tired when she walks and somewhat dizzy. There is no nystagmus with lateral gaze deviation. We reviewed her opiate consent to treat contract, signed 11/07/2015. She scores low risk on the opiate risk assessment tool. Last random drug screen on 11/19/2016 showed an aberrant finding. No morphine is noted. The study was repeated on 01/20/2017. This was appropriate. Today, we talked about therapeutic options. Given sedation with MS Contin 15 mg in the morning, I concerned that simply cutting her overall opiate load in half (from 15 MS b.i.d. to 15 at bedtime may cause some opiate withdrawal). We elected to continue MS Contin 15 mg at bedtime and use MSIR 15 mg one-half tablet (7.5 mg) in the morning. She may use a second tablet in the afternoon if so needed. We will follow up in 4 weeks to evaluate efficacy. We will likely repeat a random drug screen at that time as well. <ELECTRONICALLY SIGNED> By: Parker Strange DO 05/18/17 0724 0714 1055 Parker Strange DO /nt
[2017-05-12 13:20] VITALS: BP 140/71
== END ==
LOC: PAIN 07:14
DX: M54.16 Radiculopathy, lumbar region (principal); M17.0 Bilateral primary osteoarthritis of knee; Z79.899 Other long term (current) drug therapy

== ENCOUNTER → 2017-06-09 | Outpatient (CLI) | payer OTHER ==
[~2017-06-09] VITALS: Ht 157.5 cm; Wt 59.9 kg
--- NOTE | ~2017-06-09 | HPC ---
[facility] [address] [address] [address] [place] [address] PAIN MANAGEMENT CONSULTATION Name: TAMRA TEJEDA [facility] #: [facility] [id number] Admission: 06/09/17 Attend Phys: Parker Strange DO Discharge: Date of : 42 Report #: [id number] THIS REPORT FOR: //name// CC: Nima Strange DATE OF SERVICE: 06/09/2017 The patient is a 76-year-old female, long known to pain clinic, treated for lumbar radiculopathy, axial back pain, degenerative joint disease affecting bilateral knees requiring complex medication management. Last visit 05/12/2017. The patient was having increasing somnolence. We changed from MS Contin 15 mg b.i.d. to simply using this at bedtime and using MS IR one half tablet (one-half 15 mg tablet or 7.5 mg) in the morning with repeat in the afternoon if needed. The patient has seen Dr. Paul Navarrete at [facility], is planning on total knee arthroplasty at some point in the future (right side first). The patient did feel that she was getting a little somnolence and perhaps some melanotic stools. She was using Voltaren gel from Dr. More. She did note the warning papers given by the pharmacy with this agent and assumed that she was having some NSAID related side effects (GI bleed with melanotic stools and a component of untoward daytime listlessness and sedation). She self-discontinued the Voltaren gel and feels that those symptoms have abated somewhat. Interestingly, she had mentioned last visit that Dr. More had prescribed some amphetamine salts to help countermand these sedative side effects and she had paradoxically increased sedation with that agent. She returns to pain clinic today, notes her subjective pain score is 4 on a VAS. BMI is 24.1 kg per meter squared. Blood pressure is 151/75, pulse 70, respirations are 18. She has not fallen in the last 3 months, but does note she is tired, feels that the dizziness though is resolving since she stopped the Voltaren gel. We reviewed her opiate consent to treat contract today. We did get a new random drug screen today. It should be positive for morphine. She rises from chair using armrest. Gait is modestly antalgic. She has ongoing pain in bilateral knees, right greater than left. Axial back pain, though no focal tenderness is noted at this point. ASSESSMENT: Symptomatic axial back pain, lumbar radiculopathy, degenerative joint disease, osteoarthritis affecting bilateral knees. RECOMMENDATIONS: Continue current medication unchanged. She does not require MS Contin 15 mg for the next 4 weeks. I did, however, provide a 30 tablet prescription for MS IR to be cut in half, one half in the morning, she may use [address] [address] PAIN MANAGEMENT CONSULTATION Name: TAMRA TEJEDA Room #: REG [facility] Angel#: [id number] Admission: 06/09/17 Attend Phys: Parker Strange DO Discharge: Date of : 42 Report #: [id number] the second half later in the day. I gave her 4-week release prescription for MS IR 15 mg, 30 tablets, and MS Contin 15 mg at bedtime. Follow up in 2 months for reevaluation. <ELECTRONICALLY SIGNED> By: Parker Strange DO 06/15/17 0744 1616 1827 Parker Strange DO /nt
[2017-06-09 13:35] VITALS: BP 151/75
== END ==
LOC: PAIN 07:04
DX: M54.16 Radiculopathy, lumbar region (principal); M17.0 Bilateral primary osteoarthritis of knee; Z79.899 Other long term (current) drug therapy

== ENCOUNTER → 2017-07-25 | Outpatient (CLI) | payer OTHER ==
[~2017-07-25] MED LIST changes: -MOVANTIK25 MG PO; -ZANAFLEX2 MG PO
== END ==
LOC: NUC 07:06
DX: I25.10 Atherosclerotic heart disease of native coronary artery without angina pectoris (principal); Z01.818 Encounter for other preprocedural examination; Z87.891 Personal history of nicotine dependence; Z88.8 Allergy status to other drugs, medicaments and biological substances

== ENCOUNTER → 2017-08-26 | Outpatient (CLI) | payer OTHER ==
[~2017-08-26] VITALS: Ht 157.5 cm; Wt 61.2 kg
[~2017-08-26] MED LIST changes: +ZANAFLEX2 MG PO
--- NOTE | ~2017-08-26 | HPC ---
[facility] [address] [facility] [place] [address] PAIN MANAGEMENT CONSULTATION Name: NIKHILTAMRA DUGLAS Room #: REG [facility] Klever.#: [id number] Admission: 08/26/17 Attend Phys: Parker Strange DO Discharge: Date of : 42 Report #: [id number] THIS REPORT FOR: //name// CC: Nima Strange DATE OF SERVICE: 08/26/2017 HISTORY OF PRESENT ILLNESS: The patient is a 77-year-old female, long treated in the pain clinic for osteoarthritis affecting bilateral knees, chronic lumbar radicular pain and axial back pain. She has been stable on Duragesic 25 mcg with Tylenol No. 3 for breakthrough pain for quite some time. About a year ago, in 05/2016, she was noting lack of efficacy, we rotated to MS Contin 15 mg b.i.d. with Tylenol No. 3 for breakthrough pain. She returns to pain clinic today, now about 1 month status post right total knee arthroplasty. The patient has done remarkably well. The surgical incision looks unremarkable. She rises from the chair. Gait is tandem. She has obviously done aggressive work with her physical therapist. She is starting outpatient rehab early next week. She does tell me she is doing very well, but has recently developed some spasm in her right foot. This appears to be primarily muscular. There is negative Homans sign, no tenderness with palpation and compression of the foot, but simply what appears to be more muscle spasm type pain in the arch of the foot proper. We reviewed the fact that opiate medications are being used to provide analgesia adequate to support activities of daily living, not attempting to achieve a specific pain score on the 0-10 Visual Analog Scale. The current opiate medications are providing sufficient analgesia to allow the patient to participate in activities of daily living. The patient is not exhibiting any aberrant behavior suggestive of drug diversion. The patient is not having any adverse reactions to medications. The patient is not suffering from daytime somnolence or mental acuity changes. The patient is managing opiate-induced constipation with appropriate [id number] agents and dietary considerations. The patient was counseled on concern for caution with operating a motor vehicle while using opiate medications. A physical exam was performed and the patient's functional status was evaluated. All patients with back pain were advised against the bed rest greater than 4 days and were advised to return to normal activities. Pain score assessment was noted and the treatment plan was reviewed with the patient. All current medications, both prescribed and OTC were reviewed and reconciled on the electronic medical record. Tobacco screening was accomplished and smoking cessation was advised when indicated. BMI was noted and diet/exercise modification was recommended for all [place] [address] PAIN MANAGEMENT CONSULTATION Name: TAMRA TEJEDA Room #: REG [facility] Ortiz#: [id number] Admission: 08/26/17 Attend Phys: Parker Strange DO Discharge: Date of : 42 Report #: [id number] I reviewed with the patient today their responsibilities to safeguard prescription medications, reviewed their responsibility to utilize medications only as prescribed by the physician. They are to seek and receive pain medications only from 1 physician group ( [facility]). They are to use 1 pharmacy and keep the clinic informed if they change pharmacies. Their responsibilities include making followup visits in a timely fashion and to avoid abrupt discontinuation of medication usage. Their responsibilities further include bringing their medications (bottles from the pharmacy with residual pills) to the visit for possible confirmation of pill counts and the patient understands it is their responsibility to submit to random drug screens to ensure both that the medications prescribed are present, and that no other controlled substances are present. All prescriptions provided today were generated electronically. PHYSICAL EXAMINATION: Otherwise unchanged. A pleasant 77-year-old female, BMI is 24.7 kilograms per meter squared. Vital signs are stable as noted in the EMR. Again, rises from the chair and walks remarkably well given recent total knee arthroplasty. She still does require total knee arthroplasty on the contralateral, left, side. She is planning on getting this done in the fall. ASSESSMENT: Chronic osteoarthritic pain, now status post right total knee arthroplasty; axial back and lumbar radicular pain. The latter two are relatively quiescent given that she has been a little more sedentary status post her knee surgery the past month. RECOMMENDATIONS: Long discussion with the patient today about therapeutic options. Again, last random drug screen on 06/09/2017 was positive for prescribed medications. The patient does use some tobacco products. The buccal swab was positive for nicotine. Counseled the patient regarding smoking cessation. The patient claims to be a nonsmoker. I will have her follow up with Dr. Freddie Kasper. The patient has been very stable on her medication. We will continue MS Contin 15 mg t.i.d. with MSIR one half tablet up to b.i.d. May consider rotating back to Tylenol No. 3 for breakthrough pain. Discharged in good and stable condition. <ELECTRONICALLY SIGNED> By: Parker Strange DO 08/29/17708 [id number] 36 Parker Strange DO /nt
[2017-08-26 14:21] VITALS: BP 112/67
== END ==
LOC: PAIN 08-25 09:20
DX: M17.11 Unilateral primary osteoarthritis, right knee (principal); M54.16 Radiculopathy, lumbar region

== ENCOUNTER → 2017-09-16 | Outpatient (CLI) | payer OTHER ==
[~2017-09-16] VITALS: Ht 157.5 cm; Wt 60.1 kg
[~2017-09-16] MED LIST changes: +MOVANTIK25 MG PO
--- NOTE | ~2017-09-16 | HPC ---
[facility] [place] [address] PAIN MANAGEMENT CONSULTATION Name: NIKHILTAMRA DORIS Room #: REG [facility] Klever.#: [id number] Admission: 09/16/17 Attend Phys: Parker Strange DO Discharge: Date of : 42 Report #: [id number] THIS REPORT FOR: //name// CC: Nima Strange DATE OF SERVICE: 09/16/2017 PAIN CLINIC NOTE The patient is a very pleasant 77-year-old female typically treated for axial back pain, osteoarthritis in the bilateral knees (status post right total knee arthroplasty in late June or early July with excellent results) requiring complex medication management. The patient was last seen in the pain clinic on 08/26/2017. She returns to the pain clinic today just to clarify some of her medication usage. She was prescribed MS Contin 15 mg q. 8 hours, Tylenol No. 3 for breakthrough pain. I had prescribed prior to her total knee arthroplasty, MSIR 15 mg to use one-half tablet q. 4-6 hours as needed for breakthrough pain postoperatively. She returns to the pain clinic today noting she is actually doing reasonably well. Pain is fairly nominal, in fact she rates her pain as 0 on a VAS. She has been using MS Contin 15 mg b.i.d. with rare q. 8 hour usage. Has Tylenol No. 3 for breakthrough pain. Again, she uses this infrequently. I had prescribed some tizanidine in the past for muscle spasm, though this caused some untoward sedation. The patient does note, however, that she does struggle with constipation. She uses 2 Colace in the morning and MiraLax in the afternoon and still has irregular stools. PHYSICAL EXAMINATION: Shows a pleasant 77-year-old female, BMI is 24.3 kilogram per meter squared. Vital signs are within normal limits as noted on the EMR. She is alert and oriented to person, place and time, judged to be a reasonable historian. Rises from chair using armrest, has a well-healed surgical scar compatible with prior right total knee arthroplasty. Has a minimally antalgic gait. She still using a cane, she simply has not been released from her orthopedic surgeon to walk without it. She does have a followup appointment in 1 week. I suspect they will allow her to ambulate without assistance device. She notes doing laundry last week and some vacuuming exacerbate axial back pain, her general chronic pain. Physical examination today, however, does not note any specific tenderness in [address] [address] PAIN MANAGEMENT CONSULTATION Name: TAMRA TEJEDA Room #: REG [facility]#: [id number] Admission: 09/16/17 Attend Phys: Parker Strange DO Discharge: Date of : 42 Report #: [id number] the thoracic or lumbar paravertebral muscles. ASSESSMENT: Axial back pain by history, osteoarthritis affecting bilateral knees, status post right total knee arthroplasty in the patient anticipating the contralateral i.e., left total knee replacement sometime in this calendar year. The patient requires complex medication management, has been stable on MS Contin 15 mg typically 2-3 a day. She uses Tylenol No. 3 for breakthrough pain. Today with a component of OIC (opiate-induced constipation). I did generate a prescription for Movantik 25 mg to take daily. I suggested that if her insurance covers this in the copay is not extraordinarily high, she should try using it for a 1 month. Did caution that she should discontinue the Colace and MiraLax use initially with the Movantik for fear of having very rapid stools and diarrhea. If she is able to achieve a good stool balance using the Movantik and her MS Contin that would be ideal. She may still require a little bit of MiraLax or some of the stool softener. If, however, the insurance company does not cover the Movantik at a reasonable amount i.e. the patient's copay is too high to make it affordable, (will suggest she simply continue with Colace, Movantik, increase fiber and fluid in her diet along with activity). Discharged in good and stable condition after approximately 20 minutes spent reviewing medication, discussing the side effects of opiates including constipation, daytime somnolence and mental acuity changes. <ELECTRONICALLY SIGNED> By: Parker Strange DO 09/19/17 0710 1311 0012 Parker Strange DO /nt
[2017-09-16 12:56] VITALS: BP 119/76
== END ==
LOC: PAIN 06:55
DX: M17.0 Bilateral primary osteoarthritis of knee (principal); M54.5 Low back pain; Z79.899 Other long term (current) drug therapy; Z96.651 Presence of right artificial knee joint

== ENCOUNTER → 2018-01-13 | Outpatient (CLI) | payer OTHER ==
[~2018-01-13] VITALS: Ht 157.5 cm; Wt 60.1 kg
[2018-01-13 12:53] VITALS: BP 126/61
== END ==
LOC: PAIN 06:51
DX: M54.5 Low back pain (principal); M25.561 Pain in right knee; M25.562 Pain in left knee; M25.571 Pain in right ankle and joints of right foot; Z79.899 Other long term (current) drug therapy; Z87.891 Personal history of nicotine dependence

== ENCOUNTER → 2018-03-31 | Outpatient (CLI) | payer OTHER ==
[~2018-03-31] VITALS: Ht 157.5 cm; Wt 58.3 kg
[~2018-03-31] MED LIST changes: +SUMATRIPTAN SU100 MG PO; +ZANAFLEX4 MG PO
--- NOTE | ~2018-03-31 | HPC ---
[facility] [address] [place] [address] PAIN MANAGEMENT CONSULTATION Name: TAMRA TEJEDA Room #: REG [facility] Klever.#: [id number] Admission: 03/31/18 Attend Phys: Jazlyn Kasper MD Discharge: Date of : 42 Report #: [id number] THIS REPORT FOR: //name// CC: Nima Kasper DATE OF SERVICE: 03/31/2018 CHIEF COMPLAINT: Here for medication renewal. HISTORY: The patient is a 77-year-old female who has axial pain with osteoarthritis and suffers from bilateral knee pain. She is status post total knee replacements and has had arthroplasty in 06/2017. She has been treated with a complex medical management to help improve her lifestyle. The patient has returned today for renewal of her medication. States that her "back is killing me." The patient states that she has seen 3 orthopedic doctors in the past. She states she has scoliosis and osteoarthritis. She is not a surgical candidate. She has recently had surgery on her knee. She states that the physical therapist came by. Feels that he over exercised her. Noted worsening of her pain in her knee after that episode. She did try Movantik to help determine its ability to decrease her constipation. She did not find any significant benefit from that. She states that in May she is scheduled to see a GI doctor. She has tried a multitude of medications to help with her chronic constipation. She would like to have her medications renewed. ALLERGIES: ELAVIL, CELEXA, BENADRYL, LUNESTA, LATEX SENSITIVITY, LEVOFLOXACIN, METHOCARBAMOL, SULFA, AMBIEN, IBUPROFEN, STEROIDS/CAUSED AGITATION IN 2015. CURRENT MEDICATIONS: Morphine extended 15 mg, Systane Ultra 0.4/0.3% eyedrops, Celebrex 200 mg b.i.d., Lipitor 20 mg daily, MiraLax 17 mg, fish oil 1000 mg, melatonin 3 mg - 20 mg daily, aspirin 81 mg, multivitamin, Centrum, clonazepam 2 mg 2-3 mg at bedtime, vitamin D 2000 units, calcium 500 mg, Plaquenil 220 mg b.i.d. PAIN CLINIC ASSESSMENT/PQRS: 1. History of osteoarthritis of the right lower extremity and history of rheumatoid arthritis. The patient recently had left knee surgery. The patient is being treated for rheumatoid arthritis. 2. Height 5 feet 2 inches, weight 128 pounds, BMI is 23.5. 3. Vital signs: Blood pressure 109/57, pulse 85, respiratory rate 16, room air saturation 98%. 4. Pain intensity 8/10. 5. Fall risk. The patient has not fallen in the last 3 months. She has had her left knee replaced. 6. Blood thinner: The patient is not on [place] [address] PAIN MANAGEMENT CONSULTATION Name: TAMRA TEJEDA [facility] [id number] Admission: 03/31/18 Attend Phys: Jazlyn Kasper MD Discharge: Date of : 42 Report #: [id number] 7. Hypertension: The patient is not being treated for hypertension. 8. Opiates greater than 6 weeks: The patient receives her medication from [facility]. 9. Risk assessment tool: Low risk for opioid use. 10. Functional assessment tool: . 11. Recreational drug use: The patient denies use of recreational drugs. 12. Tobacco: The patient is a former tobacco smoker. 13. Alcohol: The patient denies use of alcoholic beverages. PHYSICAL EXAMINATION: GENERAL: The patient is a well-developed, well-nourished white female. Appears her stated age. HEENT: Normocephalic, atraumatic. Extraocular eye muscles intact. Sclerae nonicteric. Mucous membranes are moist. MUSCULOSKELETAL: Upper extremity muscle strength judged to be 4/5 for the major muscle groups in the upper extremity. States that she has generalized soreness all over. HEART: Regular rate. ABDOMEN: Nontender. Bowel sounds present. EXTREMITIES: The patient has some pain and discomfort involving the left lower extremity, status post knee replacement. IMPRESSION: 1. Chronic pain treated with opioid medication. 2. Chronic back pain and hip pain. 3. Left knee replacement, undergoing rehabilitation. 4. Meningitis, remote history. 5. Encephalopathy when . 6. Osteoporosis. 7. Scoliosis. 8. Lupus. 9. Carpal tunnel syndrome. 10. Transient ischemic attack. 11. History of urinary tract infection. 12. Bilateral ear infections. 13. 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 14. Mild plaque in the left circumflex and right coronary artery. RECOMMENDATIONS: We discussed treatment options with the patient. At this juncture, we will continue with her medications. She feels that the MS Contin medication continues to be helpful. She also feels that Tylenol No. 3 could be helpful. She did have Tylenol No. 3 at home, gave it a try, felt that medication was helpful in the interim. She would like to take one tablet per day. She asked that we write for that new medication. A script for her medications have been rewritten. The patient will call us if she has any [address] [address] PAIN MANAGEMENT CONSULTATION Name: TAMRA TEJEDA Room #: REG [facility].#: [id number] Admission: 03/31/18 Attend Phys: Jazlyn Kasper MD Discharge: Date of : 42 Report #: [id number] concerns. We would like to thank you for letting us participate in her care. We hope she continues to improve. By: 1659 0012 Jazlyn Kasper MD /tushar
[2018-03-31 13:04] VITALS: BP 109/57
--- NOTE | 2018-03-31 13:14 | NUR ---
Pain Clinic Assessment: 1. History of Osteoarthritis: Right Lower Extremity History of Rheumatoid Arthritis: Not Applicable 2. Height: 5 ft. 2 in. 157.5 cm. Weight: 128.6 lb. oz. 58.332 kg. Patient's BMI: 23.5 3. Vital Signs: BP: 109/57 Pulse: 85 Resp: 16 Temp: 02 Sat: 94 ECG Mon: 4. Pain Intensity: 8 5. Fall Risk: Dizziness: Y Needs help standing or walking: N Fallen in the last 3 months: N Fall risk comments: 6. Patient on Blood Thinner: None 7. History of Hypertension: N 8. Opioid Therapy greater than 6 weeks: Y Opiate Contract Signed: 06/09/17 9. Risk Assessment Tool Provided: LOW RISK 10. Functional Assessment Tool: 11. Recreational Drug Use: Never Drug Type: Tobacco Use: Former Smoker Tobacco Type: Amount or Packs/day: How Many Years: Alcohol Use: No Frequency: Quant:
== END ==
LOC: PAIN 07:23
DX: M54.5 Low back pain (principal); M25.551 Pain in right hip; M41.86 Other forms of scoliosis, lumbar region; M81.0 Age-related osteoporosis without current pathological fracture; M32.9 Systemic lupus erythematosus, unspecified; G03.9 Meningitis, unspecified; G56.00 Carpal tunnel syndrome, unspecified upper limb; H66.93 Otitis media, unspecified, bilateral; I25.10 Atherosclerotic heart disease of native coronary artery without angina pectoris; G45.9 Transient cerebral ischemic attack, unspecified; G93.40 Encephalopathy, unspecified; Z79.899 Other long term (current) drug therapy; Z96.652 Presence of left artificial knee joint; Z87.440 Personal history of urinary (tract) infections

== ENCOUNTER → 2018-05-31 | Outpatient (CLI) | payer OTHER ==
[~2018-05-31] VITALS: Ht 157.5 cm; Wt 58.8 kg
[~2018-05-31] MED LIST changes: +AMITIZA 24 MCG24 MCG PO
--- NOTE | ~2018-05-31 | HPC ---
[facility] [place] [address] PAIN MANAGEMENT CONSULTATION Name: TAMRA TEJEDA Room #: REG SIN Klever.#: [id number] Admission: 05/31/18 ������������������ Attend Phys: Jazlyn Kasper MD Discharge: ������������������ Date of : 44 Report #: [id number] THIS REPORT FOR: //name// CC: Nima Kasper DATE OF SERVICE: 05/31/2018 CHIEF COMPLAINT: Here for medication renewal. HISTORY: The patient is a 77-year-old female who has been seen and followed in the pain clinic because of chronic pain. She suffers from osteoarthritis as well as bilateral knee pain. She is status post knee replacements and has had arthroplasty on 06/2017. She complains of pain and discomfort in her shoulders. States that her shoulder pops out all the time. She has been having some right ankle swelling. Complains of lupus problems. Has used steroids in the past, but states that these "make her sick." She has returned today for renewal of her medications. The patient has history of scoliosis as well as osteoarthritis. She is not a surgical candidate. Has tried physical therapy in the past. Scheduled to see her GI doctor in May. Number of medications have caused constipation. ALLERGIES: ELAVIL, CELEXA, BENADRYL, LUNESTA, LATEX SENSITIVITY, LEVOFLOXACIN, METHOCARBAMOL, SULFA, AMBIEN, IBUPROFEN, LYRICA, STEROIDS CAUSED AGITATION IN 2014. CURRENT MEDICATIONS: Morphine extended release 15 mg, Systane Ultra 0.4/0.3% eyedrops, Celebrex 200 mg b.i.d., Lipitor 20 mg, MiraLax 17 mg, fish oil 1000 mg, melatonin 3-20 mg daily, aspirin 81 mg, multivitamin, Centrum, clonazepam 2 mg to 3 mg at bedtime, vitamin D 2000 units, calcium 500 mg, Plaquenil 220 mg b.i.d. PAIN CLINIC ASSESSMENT/PQRS: 1. History of osteoarthritis of the right lower extremity and history of rheumatoid arthritis. The patient has recently had left knee surgery. The patient is being treated for rheumatoid arthritis. 2. Height 5 feet 2 inches, weight 129 pounds, BMI is 23.7. 3. Vital signs: Blood pressure 119/74, respiratory rate 14, room air saturation is 97%, and pulse 84. 4. Pain intensity 5/10. 5. Fall risk. The patient has not fallen in the last 3 months. 6. Blood thinner. The patient is not on a blood thinning medication. 7. Hypertension. The patient has not been treated for hypertension. 8. Opioids greater than 6 weeks. The patient is receiving her medications from one source, the pain clinic. 9. Risk assessment tool 03/30 [place] [address] PAIN MANAGEMENT CONSULTATION Name: TAMRA TEJEDA DUGLAS Room #: REG CL Angel#: [id number] Admission: 05/31/18 ������������������ Attend Phys: Jazlyn Kasper MD Discharge: ������������������ Date of : 42 Report #: [id number] 10. Functional assessment tool . 11. Recreational drug use. The patient denies use of recreational drugs. 12. Tobacco: The patient is a former smoker. 13. Alcohol: The patient denies use of alcoholic beverages at this juncture. PHYSICAL EXAMINATION: GENERAL: The patient is a well-developed, well-nourished white female. Appears her stated age. She is alert and oriented x 3. Her affect is appropriate. Speech is fluent. HEENT: Normocephalic, atraumatic. Extraocular muscles intact. Sclerae nonicteric. The patient is wearing glasses. MUSCULOSKELETAL: Upper extremity muscle strength is judged to be 4/5 for the major muscle groups in the upper extremity. Complains of some generalized soreness. HEART: Regular rate. ABDOMEN: Nontender. Bowel sounds present. EXTREMITIES: Lower extremity. The patient complains of some left lower extremity pain and discomfort. Status post knee replacements. IMPRESSION: 1. Chronic pain treated with complex medications including opioid medication. 2. Chronic back pain and hip pain. 3. Left knee replacement, undergoing rehabilitation. 4. Meningitis remote history. 5. Encephalopathy when . 6. Osteoporosis. 7. Scoliosis. 8. Lupus. 9. Carpal tunnel syndrome. 10. Training transient ischemic attack. 11. History of urinary tract infection. 12. Bilateral ear infections. 13. 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 14. Mild plaque in the left circumflex and right coronary arteries. RECOMMENDATIONS: We discussed treatment options with the patient. At this juncture, we will continue with her current medical regimen. A script for her medications have been rewritten. She will continue with Tylenol No. 3 every 4 hours, MS Contin 15 mg 1 p.o. t.i.d. She will call us if she has any problems with her medications. [facility] [address] [place] [address] PAIN MANAGEMENT CONSULTATION Name: TAMRA TEJEDA Room #: REG CL Klever.#: [id number] Admission: 05/31/18 ������������������ Attend Phys: Jazlyn Kasper MD Discharge: ������������������ Date of : 42 Report #: [id number] We would like to thank you for letting us participate in her care. We hope she continues to improve. ��������������������������������������������� ���������������������������������������� By: ��������������������������������������������� 1516 0111 Jazlyn Kasper MD /nt
[2018-05-31 13:09] VITALS: BP 119/74
--- NOTE | 2018-05-31 13:26 | NUR ---
Pain Clinic Assessment: 1. History of Osteoarthritis: Right Lower Extremity History of Rheumatoid Arthritis: Not Applicable 2. Height: 5 ft. 2 in. 157.5 cm. Weight: 129.6 lb. oz. 58.786 kg. Patient's BMI: 23.7 3. Vital Signs: BP: 119/74 Pulse: 84 Resp: 14 Temp: 02 Sat: 97 ECG Mon: 4. Pain Intensity: 5 5. Fall Risk: Dizziness: N Needs help standing or walking: N Fallen in the last 3 months: N Fall risk comments: 6. Patient on Blood Thinner: None 7. History of Hypertension: N 8. Opioid Therapy greater than 6 weeks: Y Opiate Contract Signed: 06/09/17 9. Risk Assessment Tool Provided: LOW RISK 03/30 10. Functional Assessment Tool: 11. Recreational Drug Use: Never Drug Type: Tobacco Use: Former Smoker Tobacco Type: Amount or Packs/day: How Many Years: Alcohol Use: No Frequency: Quant:
== END ==
LOC: PAIN 07:05
DX: G89.29 Other chronic pain (principal); M17.11 Unilateral primary osteoarthritis, right knee; I25.10 Atherosclerotic heart disease of native coronary artery without angina pectoris; M81.0 Age-related osteoporosis without current pathological fracture; Z88.8 Allergy status to other drugs, medicaments and biological substances; Z91.040 Latex allergy status; Z88.2 Allergy status to sulfonamides; Z79.891 Long term (current) use of opiate analgesic; Z96.652 Presence of left artificial knee joint

== ENCOUNTER → 2018-09-14 | Outpatient (CLI) | payer OTHER ==
[~2018-09-14] VITALS: Ht 157.5 cm; Wt 60.8 kg
[2018-09-14 11:08] VITALS: BP 116/69
--- NOTE | 2018-09-14 11:24 | NUR ---
Pain Clinic Assessment: 1. History of Osteoarthritis: Right Lower Extremity History of Rheumatoid Arthritis: Not Applicable 2. Height: 5 ft. 2 in. 157.5 cm. Weight: 134.0 lb. oz. 60.782 kg. Patient's BMI: 24.5 3. Vital Signs: BP: 116/69 Pulse: 70 Resp: 20 Temp: 02 Sat: 100 ECG Mon: 4. Pain Intensity: 5 5. Fall Risk: Dizziness: N Needs help standing or walking: N Fallen in the last 3 months: Y Fall risk comments: 6. Patient on Blood Thinner: None 7. History of Hypertension: N 8. Opioid Therapy greater than 6 weeks: Y Opiate Contract Signed: 06/09/17 9. Risk Assessment Tool Provided: LOW RISK 03/30 10. Functional Assessment Tool: 11. Recreational Drug Use: Never Drug Type: Tobacco Use: Former Smoker Tobacco Type: Amount or Packs/day: How Many Years: Alcohol Use: No Frequency: Quant:
--- NOTE | 2018-09-18 07:17 | HPC ---
[facility] [place] [address] PAIN MANAGEMENT CONSULTATION Name: NIKHILTAMRAPROSPER ARDON Room #: REG Joyce Ernst.#: [id number] Admission: 09/14/18 ������������������ Attend Phys: Maddie Campbell Discharge: ������������������ Date of : 42 Report #: [id number] THIS REPORT FOR: //name// CC: Maddie Barroslas Navarrete DATE OF SERVICE: 09/14/2018 CHIEF COMPLAINT: Chronic back and hip pain and knee pain. HISTORY OF PRESENT ILLNESS: This is a very pleasant 78-year-old female who returns to the pain clinic today for a refill of her medications. She tells me that her pain score today is 5/10 that pain score is with her medications. She tells me that she is doing quite well. Her pain is worse with standing and prolonged sitting, mostly in her mid back. She is also having right wrist pain. She had fallen in July, and it is in a cast currently, so she does have some ongoing wrist pain. She denies any problems with constipation as long as she takes her Amitiza and her MiraLax. If she does not take those medicines, she gets very constipated. The patient tells me that she has been able to decrease her morphine from 3 times a day to twice a day and would like to decrease that script. She also is wondering if she is able to take an extra codeine tablet if she needs it. She right now gets 30 tablets for 2 months, and she does feel that is very beneficial sometimes in the middle of the afternoon when she has increased pain. CURRENT ALLERGIES: LATEX, SULFA, METHOCARBAMOL, AMBIEN, ELAVIL, BENADRYL, CELEXA, LEVOTHYROXINE, LUNESTA, IBUPROFEN. CURRENT MEDICATIONS: Morphine sulfate 15 mg b.i.d., Tylenol with Codeine, Amitiza daily, tizanidine, Imitrex, MiraLax, Celebrex, Lipitor, fish oil, melatonin, aspirin, multivitamin, clonazepam, vitamin D, calcium and Plaquenil. PQRS: 1. She has osteoarthritis in her right lower extremity and does have a history of rheumatoid arthritis, osteoarthritis is also in her knees. Height is 5 feet 2 inches, weight is 134, BMI is 20. 2. Vital signs 116/69, pulse is 70, respirations 20, oxygen sat is 100, pain score is 5/10. 3. Fall risk. Denies dizziness. She does not need help with walking or standing. She has not fallen in the last 3 months. The patient is not on any blood thinners and does not take medicine for hypertension. Opioid therapy is greater than 6 weeks; therefore, an opioid signed contract is on the chart. Her risk assessment tool is low. Functional assessments 42/70. 4. Recreational drug use, she denies. She is a former smoker and does not drink alcohol. [address] [address] PAIN MANAGEMENT CONSULTATION Name: NIKHILTAMRAPROSPER ARDON Room #: REG SIN Ortiz#: [id number] Admission: 09/14/18 ������������������ Attend Phys: Maddie Campbell Discharge: ������������������ Date of : 42 Report #: [id number] I did check the prescription monitoring system. The patient is filling appropriately for her medications. She is due for her morphine, but that is because she had decreased her medicine use. There is also a drug screen on the chart in the past year. PHYSICAL EXAMINATION: GENERAL: This is a well-developed, well-nourished white female who appears her stated age. She is alert and orientated x 3. Her affect is appropriate. Her speech is fluent. She places her pain score today at 5/10. HEENT: Normocephalic, atraumatic. Extraocular eye muscles are intact. Sclerae are nonintrinsic. She is wearing glasses. MUSCULOSKELETAL: Upper extremity strength judged to be 4/5 in all major muscle groups in her upper extremities. She does have a cast on her right lower arm from her recent broken wrist. Able to move her fingers without difficulty. In the lower extremity, the patient complains of some discomfort in her bilateral knees. She has well-healed scars from knee surgery within the past year. No swelling noted in her legs. Lower extremity strength judged to be 5/5 in all major muscle groups. She does have good range of motion in both her knees since her replacement. IMPRESSION: 1. Chronic pain, treated with complex medications under opioid agreement. 2. Chronic back pain and hip pain. 3. Bilateral knee replacement. 4. Osteoporosis. 5. Scoliosis. 6. Lupus. 7. History of transient ischemic attack. 8. Recent fractured wrist. We reviewed the fact that opiate medications are being used to provide analgesia adequate to support activities of daily living, not attempting to achieve a specific pain score on the 0-10 Visual Analog Scale. The current opiate medications are providing sufficient analgesia to allow the patient to participate in activities of daily living. The patient is not exhibiting any aberrant behavior suggestive of drug diversion. The patient is not having any adverse reactions to medications. The patient is not suffering from daytime somnolence or mental acuity changes. The patient is managing opiate-induced constipation with appropriate otfi-upm-ybwebhb agents and dietary considerations. The patient was counseled on concern for caution with operating a motor vehicle while using opiate medications. A physical exam was performed and the patient's functional status was evaluated. All patients with back pain were advised against the bed rest greater than 4 days and were advised to return to normal activities. Pain score assessment was [facility] [address] [place] [address] PAIN MANAGEMENT CONSULTATION Name: TAMRA TEJEDA Room #: REG [facility].#: [id number] Admission: 09/14/18 ������������������ Attend Phys: Maddie Campbell Discharge: ������������������ Date of : 42 Report #: [id number] noted and the treatment plan was reviewed with the patient. All current medications, both prescribed and OTC were reviewed and reconciled on the electronic medical record. Tobacco screening was accomplished and smoking cessation was advised when indicated. BMI was noted and diet/exercise modification was recommended for all patients following outside normal parameters. I reviewed with the patient today their responsibilities to safeguard prescription medications, reviewed their responsibility to utilize medications only as prescribed by the physician. They are to seek and receive pain medications only from 1 physician group ( [facility]). They are to use 1 pharmacy and keep the clinic informed if they change pharmacies. Their responsibilities include making followup visits in a timely fashion and to avoid abrupt discontinuation of medication usage. Their responsibilities further include bringing their medications (bottles from the pharmacy with residual pills) to the visit for possible confirmation of pill counts and the patient understands it is their responsibility to submit to random drug screens to ensure both that the medications prescribed are present, and that no other controlled substances are present. All prescriptions provided today were generated electronically. PLAN: 1. We discussed treatment options with the patient today. The patient tells me that she has been able to decrease her MS Contin use to 2 times a day and would like an adjustment on her scripts. She has been able to go longer since her last visit due to this decrease. Script was given today for MS Contin 15 mg b.i.d. for today and 4-week release. 2. Tylenol No. 3. The patient typically would receive 30 tablets and was taking them sparingly. The patient would like to increase that slightly. She feels that is very beneficial if she has increased pain throughout the middle part of the day. The patient was given #45 with 1 refill if she does need that in the next 2 months. 3. The patient questioned some tenderness around her knee, wondering if it is scar tissue or this possible complication from her knee surgery. It looks to be that it is scar tissue that will slowly adjust after her surgery since it has only been a year. The patient has no pain with movement of her knee. She is just worried about this tenderness area below her right kneecap. Dr. Campos did look at that and assured her that he also thought it was scar tissue from her surgery that will continue to change in the healing process. 4. The patient will return in 2-month time period for her medications. She is at 35 morphine mEq per day, well under the CDC guidelines. The patient is seen today with Dr. Campos who collaborated care today. ��������������������������������������������� <ELECTRONICALLY SIGNED> ���������������������������������������� By: Maddie Campbell ��������������������������������������������� 09/18/18 0717 1453 1538 Maddie Campbell /tushar
== END ==
LOC: PAIN 06:57
DX: S62.91XD Unspecified fracture of right hand, subsequent encounter for fracture with routine healing (principal); G89.29 Other chronic pain; M54.5 Low back pain; M25.551 Pain in right hip; M41.80 Other forms of scoliosis, site unspecified; M81.0 Age-related osteoporosis without current pathological fracture; M32.9 Systemic lupus erythematosus, unspecified; Z79.891 Long term (current) use of opiate analgesic; Z96.653 Presence of artificial knee joint, bilateral; Z86.73 Personal history of transient ischemic attack (TIA), and cerebral infarction without residual deficits; Z79.899 Other long term (current) drug therapy; W19.XXXD Unspecified fall, subsequent encounter

== ENCOUNTER → 2018-11-16 | Outpatient (CLI) | payer OTHER ==
--- NOTE | 2018-11-16 11:08 | 2DMMODE ---
[facility] [place] [address] 2 D/M-MODE ECHOCARDIOGRAM Name: TAMRA TEJEDA Room #: REG [facility]#: [id number] Admission: 11/16/18 Attend Phys: Austin Mitchell MD Discharge: Date of : 44 Date of Service: 11/16/18 1107 Report #: [id number] THIS REPORT FOR: //name// APPROVED REPORT Study performed: 11/16/2018 10:02:26 EXAM: Comprehensive 2D, Doppler, and color-flow Echocardiogram Patient Location: Out-Patient Status: routine BSA: 1.55 HR: 67 bpm BP: 126/80 mmHg Rhythm: NSR Other Information Study Quality: Good Indications CAD Hx: NSTEMI, COPD. 2D Dimensions RVDd: 28.91 mm IVSd: 9.60 (7-11mm) LVOT Diam: 20.30 (18-24mm) LVDd: 43.65 mm PWd: 8.26 (7-11mm) Ascending Ao: 34.03 (22-36mm) LVDs: 32.30 (25-40mm) Aortic Root: 39.03 mm Volumes Left Atrial Volume (Systole) Single Plane 4CH: 21.71 mL Single Plane 2CH: 36.21 mL LA ESV Index: 21.00 mL/m2 Aortic Valve AoV Peak Cayetano.: 1.18 m/s AO Peak Gr.: 5.57 mmHg LVOT Max P.89 mmHg LVOT Max V: 0.99 m/s ANNETTE Vmax: 2.70 cm2 AI Vmax: 3.45 m/s AI Newberry: 1.83 m/s2 AI PHT: 548.44 ms [facility] [address] [place] [address] 2 D/M-MODE ECHOCARDIOGRAM Name: TAMRA TEJEDA Room #: REG [facility]#: [id number] Admission: 11/16/18 Attend Phys: Austin Mitchell MD Discharge: Date of : 44 Date of Service: 11/16/18 1107 Report #: [id number] Mitral Valve E/A Ratio: 0.6 MV Decel. Time: 410.61 ms MV E Max Cayetano.: 0.48 m/s MV A Cayetano.: 0.77 m/s MV PHT: 119.08 ms IVRT: 78.43 ms Pulmonary Valve PV Peak Cayetano.: 0.93 m/s PV Peak Gr.: 3.46 mmHg Pulmonary Vein P Vein S: 0.53 m/s P Vein A: 0.40 m/s P Vein D: 0.40 m/s P Vein A Dur.: 110.7 msec P Vein S/D Ratio: 1.33 Tricuspid Valve TR Peak Cayetano.: 2.67 m/s RAP Estimate: 5.00 mmHg TR Peak Gr.: 28.45 mmHg PA Pressure: 33.00 mmHg Left Ventricle The left ventricle is normal size. There is normal LV segmental wall motion. Mild basal septal hypertrophy is present. Left ventricular systolic function is normal. LVEF is 55-60%. Mild diastolic dysfunction is present (impaired relaxation pattern). Right Ventricle The right ventricle is normal size. The right ventricular systolic function is normal. Atria The left atrium size is normal. The right atrium size is normal. Aortic Valve Aortic valve leaflets are mildly thickened. Mild to moderate aortic regurgitation. There is no aortic valvular stenosis. Mitral Valve The mitral valve is normal in structure. Mild to moderate mitral regurgitation. Tricuspid Valve The tricuspid valve is normal in structure. Mild tricuspid regurgitation. Estimated PAP is 30-35mmHg. [address] [address] 2 D/M-MODE ECHOCARDIOGRAM Name: NEGRO TEJEDAColton AGARWALIS Room #: REG CL Jonn#: [id number] Admission: 11/16/18 Attend Phys: Austin Mitchell MD Discharge: Date of : 44 Date of Service: 11/16/18 1107 Report #: [id number] Pulmonic Valve The pulmonary valve is normal in structure. Mild pulmonic regurgitation. Great Vessels Aortic root is mildly dilated at 3.9cm. The ascending aorta is normal in size. IVC is normal in size and collapses >50% with inspiration. Pericardium There is no pericardial effusion. <Conclusion> The left ventricle is normal size. Left ventricular systolic function is normal. Mild diastolic dysfunction is present (impaired relaxation pattern). The right ventricle is normal size. The left atrium size is normal. Aortic valve leaflets are mildly thickened. Mild to moderate aortic regurgitation. Mild to moderate mitral regurgitation. Mild tricuspid regurgitation. Estimated PAP is 30-35mmHg. <ELECTRONICALLY SIGNED> By: Austin Mitchell MD 11/16/18 1107 1107 1107 Austin Mitchell MD /INF
== END ==
LOC: CV 08-14 07:20
DX: I08.8 Other rheumatic multiple valve diseases (principal); J44.9 Chronic obstructive pulmonary disease, unspecified; I25.10 Atherosclerotic heart disease of native coronary artery without angina pectoris; I25.2 Old myocardial infarction; M25.78 Osteophyte, vertebrae; M40.294 Other kyphosis, thoracic region; I77.810 Thoracic aortic ectasia; Z88.8 Allergy status to other drugs, medicaments and biological substances; Z88.2 Allergy status to sulfonamides

== ENCOUNTER → 2018-12-08 | Outpatient (CLI) | payer OTHER ==
[~2018-12-08] VITALS: Ht 157.5 cm; Wt 59.9 kg
[2018-12-08 09:23] VITALS: BP 118/69
--- NOTE | 2018-12-08 09:28 | NUR ---
Pain Clinic Assessment: 1. History of Osteoarthritis: Right Lower Extremity History of Rheumatoid Arthritis: Not Applicable 2. Height: 5 ft. 2 in. 157.5 cm. Weight: 132.0 lb. oz. 59.875 kg. Patient's BMI: 24.1 3. Vital Signs: BP: 118/69 Pulse: 72 Resp: 14 Temp: 02 Sat: 98 ECG Mon: 4. Pain Intensity: 5 5. Fall Risk: Dizziness: N Needs help standing or walking: N Fallen in the last 3 months: N Fall risk comments: 6. Patient on Blood Thinner: None 7. History of Hypertension: N 8. Opioid Therapy greater than 6 weeks: Y Opiate Contract Signed: 06/09/17 9. Risk Assessment Tool Provided: LOW RISK 03/30 10. Functional Assessment Tool: 11. Recreational Drug Use: Never Drug Type: Tobacco Use: Former Smoker Tobacco Type: Amount or Packs/day: How Many Years: Alcohol Use: No Frequency: Quant:
--- NOTE | 2018-12-11 07:32 | HPC ---
[facility] [address] [place] [address] PAIN MANAGEMENT CONSULTATION Name: NIKHILTAMRA DORIS Room #: REG [facility] Angel#: [id number] Admission: 12/08/18 ������������������ Attend Phys: Maddie Campbell Discharge: ������������������ Date of : 44 Report #: [id number] THIS REPORT FOR: //name// CC: Maddie Campbell Nima Navarrete DATE OF SERVICE: 12/08/2018 CHIEF COMPLAINT: Bilateral knee pain and chronic right hip and back pain. HISTORY OF PRESENT ILLNESS: This is a very pleasant 78-year-old female, who returns to the pain clinic today for refill of her medications. She is rating her pain score today at 5/10. It is mostly an achy pain today, mostly concentrated in her knees, though she does experience ongoing low back and hip pain. She also reports today that she is going to have right carpal tunnel surgery on Tuesday as long as she is cleared from a urinary tract infection that she has been suffering from. She has currently off all of her medications for that and is going to be tested today and hopefully have her surgery on Tuesday. The patient denies any problems with constipation as long as she takes her probiotic and her Amitiza. She had been suffering from significant constipation, but now with his new regimen, she feels like she has it under control. She would like a refill today of her morphine and her Tylenol No. 3. She does not believe that she needs any additional medicines for her upcoming surgery. ALLERGIES: LATEX, SULFA, METHOCARBAMOL, AMBIEN, ELAVIL, BENADRYL, CELEXA, LEVOTHYROXINE, LUNESTA and IBUPROFEN. CURRENT LIST OF MEDICATIONS: Morphine sulfate 15 mg b.i.d., Tylenol No. 3 p.r.n., Amitiza 24 mcg daily, tizanidine 4 mg p.r.n., sumatriptan 100 mg p.r.n., Celebrex 200 mg daily, Lipitor 20 mg daily, fish oil, melatonin, aspirin, multivitamin, clonazepam 2 mg at bedtime, vitamin D, calcium, and Plaquenil 200 mg b.i.d. PQRS: 1. She has osteoarthritis in her bilateral knees and lower extremities and is being treated for rheumatoid arthritis as well. 2. Height is 5 feet 2 inches, weight is 132, and BMI is 24. 3. Vital signs: Blood pressure 118/72, respirations 14, oxygen sat is 98. 4. Pain score is 5/10. 5. Denies dizziness, does not need help walking or standing, has not fallen in the last 3 months. 6. The patient is not on any blood thinners or medicine for hypertension. 7. Opiate therapy is greater than 6 weeks; therefore, an opioid signed contract is on the chart. Her risk assessment tool is low[place] [address] PAIN MANAGEMENT CONSULTATION Name: NEGRO TEJEDAColton AGARWALIS Room #: REG SIN Ortiz#: [id number] Admission: 12/08/18 ������������������ Attend Phys: Maddie Cmapbell Discharge: ������������������ Date of : 42 Report #: [id number] 42/70. 8. Recreational drug use, she denies. She is a former smoker and does not drink alcohol. According to the prescription monitoring system, the patient last filled her medicines in September, but she explains us that she was ahead and did have extra medicine, so she continued twice a day pills that has not needed them until now. There is a recent drug screen on the chart as well that is appropriate for her medicines. PHYSICAL EXAMINATION: GENERAL: She is a well-developed, well-nourished white female who appears her stated age, placing her current pain score at 5/10. Affect is appropriate and she is alert and orientated. HEENT: Normocephalic, atraumatic. Extraocular eye muscles are intact. MUSCULOSKELETAL: Complains of bilateral knee pain tenderness, though she has good range of motion. Able to stand without difficulty. Her lower extremity strength judged to be 5/5 in all major muscle groups. Her upper extremity strength also judged to be 5/5 in all major muscle groups. She walks with a slightly antalgic gait. IMPRESSION: 1. Chronic pain treated with complex medical management under terms of written opioid agreement. 2. Chronic back pain and hip pain. 3. 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 4. Osteoporosis. 5. Scoliosis. 6. Lupus. We reviewed the fact that opiate medications are being used to provide analgesia adequate to support activities of daily living, not attempting to achieve a specific pain score on the 0-10 Visual Analog Scale. The current opiate medications are providing sufficient analgesia to allow the patient to participate in activities of daily living. The patient is not exhibiting any aberrant behavior suggestive of drug diversion. The patient is not having any adverse reactions to medications. The patient is not suffering from daytime somnolence or mental acuity changes. The patient is managing opiate-induced constipation with appropriate [id number] agents and dietary considerations. The patient was counseled on concern for caution with operating a motor vehicle while using opiate medications. A physical exam was performed and the patient's functional status was evaluated. All patients with back pain were advised against the bed rest greater than 4 days and were advised to return to normal activities. Pain score assessment was noted and the treatment plan was reviewed with the patient. All current [facility] [address] [place] [address] PAIN MANAGEMENT CONSULTATION Name: NIKHILTAMRA DUGLAS [facility] [id number] Admission: 12/08/18 ������������������ Attend Phys: Maddie BARRON Campbell Discharge: ������������������ Date of : 42 Report #: [id number] medications, both prescribed and OTC were reviewed and reconciled on the electronic medical record. Tobacco screening was accomplished and smoking cessation was advised when indicated. BMI was noted and diet/exercise modification was recommended for all patients following outside normal parameters. I reviewed with the patient today their responsibilities to safeguard prescription medications, reviewed their responsibility to utilize medications only as prescribed by the physician. They are to seek and receive pain medications only from 1 physician group ( [facility]). They are to use 1 pharmacy and keep the clinic informed if they change pharmacies. Their responsibilities include making followup visits in a timely fashion and to avoid abrupt discontinuation of medication usage. Their responsibilities further include bringing their medications (bottles from the pharmacy with residual pills) to the visit for possible confirmation of pill counts and the patient understands it is their responsibility to submit to random drug screens to ensure both that the medications prescribed are present, and that no other controlled substances are present. All prescriptions provided today were generated electronically. PLAN: 1. We discussed treatment options with the patient today. The patient is here for renewal of her MS Contin 15 mg, #60 for today and 4-week release given as well as Tylenol No. 3 one tablet 2 times a day, #45 with one additional refill. According to the CDC guidelines, this places the patient about 35 morphine mEq per day, currently way under their guidelines. 2. The patient is having carpal tunnel surgery on her right wrist on Tuesday. She does not believe that she needs any additional pain medicine for the surgery, but will call if the physician does give her a script. 3. The patient will return in 2 months for followup. The patient seen in collaboration with Dr. Connor Kasper who did see the patient as well today. ��������������������������������������������� <ELECTRONICALLY SIGNED> ���������������������������������������� By: Maddie Campbell ��������������������������������������������� 12/11/18 0732 [id number] Maddie Campbell /nt
== END ==
LOC: PAIN 06:44
DX: M17.0 Bilateral primary osteoarthritis of knee (principal); M54.5 Low back pain; G89.29 Other chronic pain; M81.0 Age-related osteoporosis without current pathological fracture; M41.80 Other forms of scoliosis, site unspecified; M32.9 Systemic lupus erythematosus, unspecified; Z88.8 Allergy status to other drugs, medicaments and biological substances; Z88.2 Allergy status to sulfonamides; Z91.040 Latex allergy status; Z79.899 Other long term (current) drug therapy; Z79.891 Long term (current) use of opiate analgesic

== ENCOUNTER → 2019-02-12 | Outpatient (CLI) | payer OTHER ==
[~2019-02-12] VITALS: Ht 157.5 cm; Wt 60.1 kg
[~2019-02-12] MED LIST changes: +TYLENOL WITH CO1 TA1 PO
[2019-02-12 09:45] VITALS: BP 115/51
--- NOTE | 2019-02-12 10:01 | NUR ---
Pain Clinic Assessment: 1. History of Osteoarthritis: KNEES WRISTS History of Rheumatoid Arthritis: DENIES 2. Height: 5 ft. 2 in. 157.5 cm. Weight: 132.6 lb. oz. 60.147 kg. Patient's BMI: 24.2 3. Vital Signs: BP: 115/51 Pulse: 78 Resp: 16 Temp: 02 Sat: 99 ECG Mon: 4. Pain Intensity: 3 5. Fall Risk: Dizziness: N Needs help standing or walking: N Fallen in the last 3 months: N Fall risk comments: 6. Patient on Blood Thinner: None 7. History of Hypertension: N 8. Opioid Therapy greater than 6 weeks: Y Opiate Contract Signed: 06/09/17 9. Risk Assessment Tool Provided: LOW RISK 03/30 10. Functional Assessment Tool: 11. Recreational Drug Use: Never Drug Type: Tobacco Use: Former Smoker Tobacco Type: Amount or Packs/day: How Many Years: Alcohol Use: No Frequency: Quant:
--- NOTE | 2019-02-13 08:41 | HPC ---
[facility] [address] [place] [address] PAIN MANAGEMENT CONSULTATION Name: NIKHILTAMRA DORIS Room #: REG [facility]..#: [id number] Admission: 02/12/19 Attend Phys: Maddie Campbell Discharge: Date of : 42 Report #: [id number] THIS REPORT FOR: //name// CC: Maddie Campbell Nima Navarrete DATE OF SERVICE: 02/12/2019 CHIEF COMPLAINT: Bilateral knee pain and low back pain. HISTORY OF PRESENT ILLNESS: This is a very pleasant 78-year-old female, who returns to the pain clinic today for refill of her medications that she is using to help treat her ongoing bilateral knee pain and low back pain. She reports it 3/10 today. It is worse with standing and prolonged sitting. She finds the medications helpful. She has found that her Tylenol No. 3 helps her to take that periodically before she is active in addition to her morphine throughout the day. The patient does report that she had to sit at the hospital for quite a length of time due to her daughter's recent hospitalization. Her legs did swell quite a bit and she had significant pain in her bilateral knees. Today, they have very minimum swelling in them, though she has made an appointment to see her orthopedic doctor about this issue. The patient does continue to have problems with constipation. This has been a problem for a significant amount of time. She has taken Amitiza and MiraLax and considers still to have GI issues. She will see her GI doctor next week in regard to this. ALLERGIES: LATEX, SULFA, METHOCARBAMOL, AMBIEN, AMITRIPTYLINE, BENADRYL, CELEXA, LEVOTHYROXINE, LUNESTA and IBUPROFEN. CURRENT LIST OF MEDICATIONS: Tylenol No. 3 p.r.n., morphine sulfate 15 mg b.i.d., Amitiza 24 mcg daily, tizanidine p.r.n. t.i.d., sumatriptan 100 mg daily, Celebrex 200 mg b.i.d., Lipitor 20 mg daily, MiraLax b.i.d. to t.i.d., fish oil b.i.d., melatonin 20 mg daily, aspirin, multivitamin, clonazepam 2 mg daily, vitamin D, calcium, and Plaquenil 200 mg b.i.d. PQRS: 1. She has a history of osteoarthritis in her knees and hips, is also being treated for autoimmune deficiencies as well. 2. Height is 5 feet 2 inches, weight is 132, BMI is 24. 3. Vital signs 115/51, pulse is 78, respirations 16, oxygen sat is 99. 4. Pain score is 3/10. 5. Denies dizziness, does not need help walking or standing, has not fallen in the last [address] [address] PAIN MANAGEMENT CONSULTATION Name: TAMRA TEJEDA Room #: REG [facility].#: [id number] Admission: 02/12/19 Attend Phys: Maddie Campbell Discharge: Date of : 42 Report #: [id number] 6. The patient is not on any blood thinners or hypertension meds. 7. Opioid therapy is greater than 6 weeks; therefore, an opiate signed contract is on the chart. Risk assessment tool is low. Functional assessment is 42/70. 8. Recreational drug use, she denies. She is a former smoker and does not drink alcohol. According to the prescription monitoring system, the patient is filling appropriately for her medications. She has actually passed due to fill these medicines today. There is a recent drug screen on the chart that is appropriate as well for her medications. She does safeguard them at all times. PHYSICAL EXAMINATION: GENERAL: She is a well-developed, well-nourished 78-year-old female who appears her stated age, placing her current pain score at 3/10 today. Her affect is appropriate. She is alert and orientated and a good historian. HEENT: Normocephalic, atraumatic. Extraocular eye muscles are intact. Mucous membranes are moist. MUSCULOSKELETAL: She has knee tenderness today with good range of motion. Able to stand without difficulty. She has a normal gait. Does have 1+ edema noted in the right knee on the anterior portion. She has a large area of ecchymosis on the left thigh from a recent injury. Her lower extremity strength judged to be 5/5 in all major muscle groups. IMPRESSION: 1. Chronic pain, treated with complex medical management under terms of written opioid agreement. 2. Chronic back pain and hip pain. 3. 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 4. Osteoporosis. 5. Scoliosis. 6. Lupus. We reviewed the fact that opiate medications are being used to provide analgesia adequate to support activities of daily living, not attempting to achieve a specific pain score on the 0-10 Visual Analog Scale. The current opiate medications are providing sufficient analgesia to allow the patient to participate in activities of daily living. The patient is not exhibiting any aberrant behavior suggestive of drug diversion. The patient is not having any adverse reactions to medications. The patient is not suffering from daytime somnolence or mental acuity changes. The patient is managing opiate-induced constipation with appropriate lsms-cuv-xncaacl agents and dietary considerations. The patient was counseled on concern for caution with operating a motor vehicle while using opiate medications. A physical exam was performed and the patient's functional status was evaluated. All patients with back pain were advised against the bed rest greater than 4 [facility] [address] [place] [address] PAIN MANAGEMENT CONSULTATION Name: TAMRA TEJEDA Room #: REG [facility] M..#: [id number] Admission: 02/12/19 Attend Phys: Maddie Campbell Discharge: Date of : 42 Report #: [id number] days and were advised to return to normal activities. Pain score assessment was noted and the treatment plan was reviewed with the patient. All current medications, both prescribed and OTC were reviewed and reconciled on the electronic medical record. Tobacco screening was accomplished and smoking cessation was advised when indicated. BMI was noted and diet/exercise modification was recommended for all patients following outside normal parameters. I reviewed with the patient today their responsibilities to safeguard prescription medications, reviewed their responsibility to utilize medications only as prescribed by the physician. They are to seek and receive pain medications only from 1 physician group ([facility]). They are to use 1 pharmacy and keep the clinic informed if they change pharmacies. Their responsibilities include making followup visits in a timely fashion and to avoid abrupt discontinuation of medication usage. Their responsibilities further include bringing their medications (bottles from the pharmacy with residual pills) to the visit for possible confirmation of pill counts and the patient understands it is their responsibility to submit to random drug screens to ensure both that the medications prescribed are present, and that no other controlled substances are present. All prescriptions provided today were generated electronically. PLAN: 1. We discussed treatment options with the patient today. The patient is here for renewal of her MS Contin 15 mg, the patient takes them 2 tablets a day. Scripts given for #60 for today and 4-week release. 2. Also, Tylenol No. 3, 45 pills given. This does last the patient about 2 months. 3. We did discuss her ongoing knee pain. She is going to see her orthopedic doctor in the next week. I do see slight edema noted, but otherwise seems that she has good range of motion in both knees. 4. We did discuss the patient's constipation. She does take Amitiza and MiraLax several times a day, but still has ongoing constipation issues, feels bloated at times can go several days without a bowel movement despite her bowel regimen. She is seeing her GI doctor next week for this ongoing issue. 5. The patient is seen in collaboration with Dr. Connor Kasper today. The patient will return in followup in 2 months. <ELECTRONICALLY SIGNED> By: Maddie Campbell 02/13/19 [id number] Maddie Campbell /tushar
== END ==
LOC: PAIN 06:54
DX: M17.0 Bilateral primary osteoarthritis of knee (principal); M81.0 Age-related osteoporosis without current pathological fracture; M25.559 Pain in unspecified hip; M41.9 Scoliosis, unspecified; M54.5 Low back pain; Z79.891 Long term (current) use of opiate analgesic

== ENCOUNTER → 2019-04-12 | Outpatient (CLI) | payer OTHER ==
[~2019-04-12] VITALS: Ht 157.5 cm; Wt 60.2 kg
[~2019-04-12] MED LIST changes: +LINZESS290 MCG PO; +SYMPROIC0.2 MG PO; +TROSPIUM CHLORI20 MG PO
[2019-04-12 09:46] VITALS: BP 130/56
--- NOTE | 2019-04-12 10:04 | NUR ---
Pain Clinic Assessment: 1. History of Osteoarthritis: KNEES WRISTS History of Rheumatoid Arthritis: DENIES 2. Height: 5 ft. 2 in. 157.5 cm. Weight: 132.8 lb. oz. 60.238 kg. Patient's BMI: 24.3 3. Vital Signs: BP: 130/56 Pulse: 77 Resp: 16 Temp: 02 Sat: 99 ECG Mon: 4. Pain Intensity: 7-8 5. Fall Risk: Dizziness: N Needs help standing or walking: N Fallen in the last 3 months: N Fall risk comments: 6. Patient on Blood Thinner: None 7. History of Hypertension: N 8. Opioid Therapy greater than 6 weeks: Y Opiate Contract Signed: 06/09/17 9. Risk Assessment Tool Provided: LOW RISK 03/30 10. Functional Assessment Tool: 11. Recreational Drug Use: Never Drug Type: Tobacco Use: Former Smoker Tobacco Type: Amount or Packs/day: How Many Years: Alcohol Use: No Frequency: Quant:
--- NOTE | 2019-04-12 15:29 | HPC ---
[facility] [address] [place] [address] PAIN MANAGEMENT CONSULTATION Name: NIKHILTAMRAPROSPER ARDON [id number] Admission: 04/12/19 Attend Phys: Maddie Campbell Discharge: Date of : 42 Report #: [id number] THIS REPORT FOR: //name// CC: Maddie Barroslas Navarrete DATE OF SERVICE: 04/12/2019 CHIEF COMPLAINT: Bilateral knee pain, low back pain and right wrist pain. HISTORY OF PRESENT ILLNESS: This is a 78-year-old female, who returns to the pain clinic today for refill of her medications that she uses to help treat her ongoing low back pain as well as knee pain. Today though she reports that her right wrist is causing her the most significant pain, rating her pain score 7-8/10. She feels that ever since her fall last year, her wrist has been very problematic. She has seen one orthopedic for a second opinion. He will not do surgery on her and referred her back to her original orthopedic doctor. The patient tells me that she is unable to bend her wrist and do several activities of daily living that she used to be able to perform because she does have significant pain in this area. She feels also that the morphine is not as effective as it used to be. She reports that she does have pain later in the day and does use her Tylenol #3 when that pain increases. The patient reports that she is having more problems with constipation than she had in the past. She continues to take MiraLax, but does not feel that she is having effective bowel movements and feels like she is bloated all the time. Her primary care doctor recently started her on Linzess, but she still feels that she is not having significant bowel movements to help with her ongoing constipation issues. ALLERGIES: LATEX, SULFA, METHOCARBAMOL, AMBIEN, AMITRIPTYLINE, BENADRYL, CELEXA, LEVOFLOXACIN, AND LUNESTA. CURRENT MEDICATIONS: Trospium, Linzess, Tylenol No. 3 with Codeine, morphine sulfate 15 b.i.d., tizanidine p.r.n., sumatriptan, MiraLax, Celexa, Lipitor, fish oil, melatonin, aspirin, multivitamin, clonazepam, vitamin D, calcium, and Plaquenil. PQRS: 1. She has a history of osteoarthritis in her knees and hips and also being treated for immune deficiencies. Denies any rheumatoid arthritis. 2. Height is 5 feet 2 inches, weight is 132, BMI is 24. 3. Vital signs 130/56, pulse is 77, respirations 16, oxygen sat is 99. 4. Pain score is 7-8. 5. Denies dizziness, does not need help walking or standing, has not fallen in the last [address] [address] PAIN MANAGEMENT CONSULTATION Name: TAMRA TEJEDA Room #: REG CL Angel#: [id number] Admission: 04/12/19 Attend Phys: Maddie Campbell Discharge: Date of : 42 Report #: [id number] 6. The patient is not on any blood thinners or medicine for hypertension. Opioid therapy is greater than 6 weeks; therefore, an opioid signed contract is on the chart. Risk assessment tool is low. Functional assessment is 42/70. 7. Recreational drug use, she denies. She is a former smoker and does not drink alcohol. According to the prescription monitoring system, the patient last filled her morphine in February. She is here today in a timely fashion. According to the CDC guidelines, her morphine mEq is under 40 MME per day. The patient reports she does safeguard her meds at all times. PHYSICAL EXAMINATION: GENERAL: This is a well-developed, well-nourished 78-year-old slightly anxious female who appears her stated age, placing her current pain score at 7-8/10. Her affect is appropriate. HEENT: Normocephalic, atraumatic. Extraocular eye muscles are intact. Mucous membranes are moist. MUSCULOSKELETAL: She has tenderness in her bilateral knees today, worse with ambulation. She has a normal gait. Her lower extremity strength judged to be 5/5 in all major muscle groups. She complains of tenderness in her right wrist today with limited movement in flexion and extension. No swelling noted. IMPRESSION: 1. Chronic pain, treated with complex medical management under terms of written opioid agreement. 2. Chronic back pain and hip pain. 3. 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 4. Osteoporosis. 5. Scoliosis. 6. Lupus. 7. Right wrist pain ongoing. 8. Opioid-induced constipation. We reviewed the fact that opiate medications are being used to provide analgesia adequate to support activities of daily living, not attempting to achieve a specific pain score on the 0-10 Visual Analog Scale. The current opiate medications are providing sufficient analgesia to allow the patient to participate in activities of daily living. The patient is not exhibiting any aberrant behavior suggestive of drug diversion. The patient is not having any adverse reactions to medications. The patient is not suffering from daytime somnolence or mental acuity changes. The patient is managing opiate-induced constipation with appropriate bwaz-hwz-bsikvoq agents and dietary considerations. The patient was counseled on concern for caution with operating a motor vehicle while using opiate medications. PLAN: [facility] [place] [address] PAIN MANAGEMENT CONSULTATION Name: NEGRO TEJEDAN DUGLAS Room #: [facility] [id number] Admission: 04/12/19 Attend Phys: Maddie BARRON Shannan Discharge: Date of : 42 Report #: [id number] 1. We discussed treatment options with the patient today. We will refill her MS Contin 15 mg, the patient takes this twice a day. We will write prescriptions for today and 4 weeks. 2. We will continue her Tylenol No. 3, 45 pills given with 1 refill. 3. We discussed the patient's ongoing constipation issues. The patient has been taking MiraLax, but finds it is not as beneficial as it had in the past. At one point, we did write a prescription for Movantik for her opioid-induced constipation. The patient stated that she had diarrhea upon taking that medication and felt that that was a significant side effect. I explained to the patient that meant that the medications did work, maybe too well. We may try a different opioid-induced constipation medication and see if this is beneficial. The patient may take it on a daily basis or every other day as long as she finds that she is having normal bowel movements. We will trial Symproic 0.2 mg, 15 pills given and sent electronically today for patient to try this medication. 4. We did discuss the patient's ongoing wrist discomfort. I encouraged her to go back to Dr. Krishna or see the hand specialist within that group of Dr. Chong. Patient will call to discuss if there are any options for her right wrist pain. 5. The patient will return to our clinic in 2 months for refill of her medications. <ELECTRONICALLY SIGNED> By: Maddie Campbell 04/12/19 1529 [id number] Maddie Campbell /nt
== END ==
LOC: PAIN 04-09 14:02
DX: G89.29 Other chronic pain (principal); M54.5 Low back pain; M25.559 Pain in unspecified hip; M81.0 Age-related osteoporosis without current pathological fracture; M41.80 Other forms of scoliosis, site unspecified; M32.9 Systemic lupus erythematosus, unspecified; K59.03 Drug induced constipation; T40.2X5A Adverse effect of other opioids, initial encounter; Y92.89 Other specified places as the place of occurrence of the external cause

== ENCOUNTER → 2019-05-23 | Outpatient (CLI) | payer OTHER | LOC: SJCVC 13:31 | DX: I21.29 ST elevation (STEMI) myocardial infarction involving other sites (principal); R94.31 Abnormal electrocardiogram [ECG] [EKG]; R60.9 Edema, unspecified; I25.10 Atherosclerotic heart disease of native coronary artery without angina pectoris; I10 Essential (primary) hypertension; E78.00 Pure hypercholesterolemia, unspecified; J44.9 Chronic obstructive pulmonary disease, unspecified; E78.5 Hyperlipidemia, unspecified; I25.2 Old myocardial infarction; Z87.891 Personal history of nicotine dependence; Z79.82 Long term (current) use of aspirin; Z79.899 Other long term (current) drug therapy ==

== ENCOUNTER → 2019-06-14 | Outpatient (CLI) | payer OTHER ==
[~2019-06-14] MED LIST changes: +KRISTALOSE20 GM PO; +MOVANTIK12.5 MG PO; +PROBIOTIC1 EAC7 PO; +VITAMIN C500 M1 PO; +[UNRECOGNIZED DRUG - OTHER]
== END ==
LOC: CAT 06-11 09:42
DX: J43.9 Emphysema, unspecified (principal); R91.8 Other nonspecific abnormal finding of lung field; I25.10 Atherosclerotic heart disease of native coronary artery without angina pectoris; I71.2 Thoracic aortic aneurysm, without rupture; M48.04 Spinal stenosis, thoracic region; Z88.8 Allergy status to other drugs, medicaments and biological substances

== ENCOUNTER → 2019-06-14 | Outpatient (CLI) | payer OTHER ==
[~2019-06-14] VITALS: Ht 157.5 cm; Wt 61.0 kg
[2019-06-14 11:15] VITALS: BP 122/70
--- NOTE | 2019-06-14 11:34 | NUR ---
Pain Clinic Assessment: 1. History of Osteoarthritis: KNEES WRISTS History of Rheumatoid Arthritis: DENIES 2. Height: 5 ft. 2 in. 157.5 cm. Weight: 134.4 lb. oz. 60.963 kg. Patient's BMI: 24.6 3. Vital Signs: BP: 122/70 Pulse: 75 Resp: 16 Temp: 02 Sat: 97 ECG Mon: 4. Pain Intensity: 0 5. Fall Risk: Dizziness: N Needs help standing or walking: N Fallen in the last 3 months: N Fall risk comments: 6. Patient on Blood Thinner: None 7. History of Hypertension: N 8. Opioid Therapy greater than 6 weeks: Y Opiate Contract Signed: 06/09/17 9. Risk Assessment Tool Provided: LOW RISK -2 10. Functional Assessment Tool: 11. Recreational Drug Use: Never Drug Type: Tobacco Use: Former Smoker Tobacco Type: Cigarettes Amount or Packs/day: How Many Years: Alcohol Use: No Frequency: Quant:
--- NOTE | 2019-06-15 07:59 | HPC ---
[facility] [address] [place] [address] PAIN MANAGEMENT CONSULTATION Name: TAMRA TEJEDA Room #: REG [facility] M.R.#: [id number] Admission: 06/14/19 Attend Phys: Maddie Campbell Discharge: Date of : 42 Report #: [id number] THIS REPORT FOR: cc: Nima Navarrete MD, Douglas James MD Hocker, Amanda CNS ~ DATE OF SERVICE: 06/14/2019 CHIEF COMPLAINT: Bilateral knee pain and low back pain and ongoing right wrist pain. HISTORY OF PRESENT ILLNESS: This is a 78-year-old female, who returns to the pain clinic today for refill of her medications that she uses to help treat her various pain issues. She reports she did see Dr. Chong for her right wrist pain. She was encouraged by what she had to say. She feels that she may have a surgery from Dr. Chong in the near future to help reduce some of her right wrist pain. She is wearing a brace on it today. She reports Dr. Chong did discuss 2 separate surgeries, but if she can "dial down" some of her pain with 1 procedure, she is hopeful to only have one and not two surgeries. The patient reports her pain is in her bilateral knees today and her low back rating at a 0 because she feels she has not been as active as she is in some days. She reports that she does not think that Tylenol No. 3 is very beneficial and is unsure if she has much benefit from the morphine. She does complain of ongoing constipation issues that are quite severe despite the use of several laxative medications. Today, she would like refills of her pain medications. ALLERGIES: LATEX, SULFA, METHOCARBAMOL, AMBIEN, AMITRIPTYLINE, BENADRYL, CELEXA, LEVOTHYROXINE, LUNESTA, and IBUPROFEN. CURRENT MEDICATIONS: Lactulose, vitamin C probiotic, MS Contin 15 mg b.i.d., Symproic 0.2, Tylenol No. 3 very sparingly, Linzess, tizanidine, sumatriptan, Celebrex, Lipitor, MiraLax, fish oil, melatonin, aspirin, multivitamin, clonazepam, vitamin D, calcium, and hydroxychloroquine. PQRS: 1. She has a history of osteoarthritis in her knees and wrists. Denies any rheumatoid arthritis. 2. Height is 5 feet 2 inches, weight is 134, BMI is 24. 3. Vital signs 122/70, pulse is 75, respirations 16, oxygen sat is 97. 4. Pain score is 0/10. 5. Denies dizziness, does not need help walking or standing, has not fallen in the last 3 months. 6. The patient is not on any blood thinners or medicine for hypertension. Opioid therapy is greater than 6 weeks; therefore, an opioid signed contract is [address] [address] PAIN MANAGEMENT CONSULTATION Name: TAMRA TEJEDA Room #: REG SIN Ortiz#: [id number] Admission: 06/14/19 Attend Phys: Maddie Campbell Discharge: Date of : 42 Report #: [id number] on the chart. Risk assessment tool is low. Functional assessment is 33/70. 7. Recreational drug use, she denies. She is a former smoker and does not drink alcohol. According to the prescription monitoring system, the patient is due to fill her morphine today. She has plenty of Tylenol No. 3 at home. She does not feel that these are beneficial. According to the CDC guidelines, her morphine mEq per day is 30 MME. PHYSICAL EXAMINATION: GENERAL: This is alert and orientated, well-developed, anxious 78-year-old female who appears her stated age, placing her current pain score at 0. HEENT: Normocephalic, atraumatic. Extraocular eye muscles are intact. Mucous membranes are moist. MUSCULOSKELETAL: She has right wrist pain and tenderness. Pain with flexion and extension and rotation of her wrist. She is wearing a brace presently. Tenderness in her bilateral knees that increases with ambulation. She does have a normal gait. Her lower extremity strength judged to be 5/5 in all major muscle groups and good sensation from L1-S2. IMPRESSION: 1. Chronic pain, with complex medical management under terms of written opioid agreement. 2. Chronic back pain and hip pain. 3. Osteoarthritis affecting her bilateral knees, which had been replaced. 4. Scoliosis. 5. Osteoporosis. 6. Lupus. 7. Ongoing right wrist pain. 8. Opioid-induced constipation. We reviewed the fact that opiate medications are being used to provide analgesia adequate to support activities of daily living, not attempting to achieve a specific pain score on the 0-10 Visual Analog Scale. The current opiate medications are providing sufficient analgesia to allow the patient to participate in activities of daily living. The patient is not exhibiting any aberrant behavior suggestive of drug diversion. The patient is not having any adverse reactions to medications. The patient is not suffering from daytime somnolence or mental acuity changes. The patient is managing opiate-induced constipation with appropriate mfej-cnc-fxakbxn agents and dietary considerations. The patient was counseled on concern for caution with operating a motor vehicle while using opiate medications. A physical exam was performed and the patient's functional status was evaluated. All patients with back pain were advised against the bed rest greater than 4 days and were advised to return to normal activities. Pain score assessment was [facility] [address] [place] [address] PAIN MANAGEMENT CONSULTATION Name: TAMRA TEJEDA [facility] [id number] Admission: 06/14/19 Attend Phys: Maddie Campbell Discharge: Date of : 42 Report #: [id number] noted and the treatment plan was reviewed with the patient. All current medications, both prescribed and OTC were reviewed and reconciled on the electronic medical record. Tobacco screening was accomplished and smoking cessation was advised when indicated. BMI was noted and diet/exercise modification was recommended for all patients following outside normal parameters. I reviewed with the patient today their responsibilities to safeguard prescription medications, reviewed their responsibility to utilize medications only as prescribed by the physician. They are to seek and receive pain medications only from 1 physician group ( [facility]). They are to use 1 pharmacy and keep the clinic informed if they change pharmacies. Their responsibilities include making followup visits in a timely fashion and to avoid abrupt discontinuation of medication usage. Their responsibilities further include bringing their medications (bottles from the pharmacy with residual pills) to the visit for possible confirmation of pill counts and the patient understands it is their responsibility to submit to random drug screens to ensure both that the medications prescribed are present, and that no other controlled substances are present. All prescriptions provided today were generated electronically. PLAN: 1. We discussed treatment options with the patient today. The patient continues to have ongoing opioid-induced constipation. She has tried Movantik in the past. She reported significant side effect of explosive diarrhea after she had taken the medicine. The patient has had tried Symproic, found it beneficial for several days, then she reports it quit working. She does take lactulose on a daily basis as well as MiraLax, though she feels that makes her bloated. She would like to try Movantik at a smaller dose if she is able. I explained to her that her diarrhea was possibly a result of her being so constipated and we will try this medicine for her opioid-induced constipation again at a decreased dose, writing a prescription for Movantik 12.5 mg, instructing her to take once a day. She is to stop her lactulose and MiraLax while she is taking this medicine. 2. The patient feels that Tylenol with Codeine is not beneficial. She has plenty of these pills at home since she does take them very sparingly. We will not refill this medication today. 3. We discussed trying to decrease her MS Contin since she again feels that it is not beneficial in helping some of her pain. I explained to her, we will write for 2 tablets a day of 15 mg, but I explained to her I want her to try over the next 2 weeks to try and only take it at bedtime when she has more severe pain and see if she is able to tolerate less medication and continue with good pain control. This may also help with her ongoing opioid-induced constipation. The patient verbalizes understanding. If her pain increases, she is to go back to her 2 pills a day. [address] [address] PAIN MANAGEMENT CONSULTATION Name: NIKHILTAMRAPROSPER ARDON Room #: REG CL Angel#: [id number] Admission: 06/14/19 Attend Phys: Maddie Campbell Discharge: Date of : 42 Report #: [id number] 4. Scripts were sent electronically by Dr. Jean Pierre Campos who collaborated care for her today. <ELECTRONICALLY SIGNED> By: Maddie Campbell 06/15/19 0759 [id number] Maddie Campbell /tushar
== END ==
LOC: PAIN 06:45
DX: M17.0 Bilateral primary osteoarthritis of knee (principal); M81.0 Age-related osteoporosis without current pathological fracture; M32.9 Systemic lupus erythematosus, unspecified; M41.86 Other forms of scoliosis, lumbar region; G89.4 Chronic pain syndrome

== ENCOUNTER → 2019-08-13 | Outpatient (CLI) | payer OTHER ==
[~2019-08-13] VITALS: Ht 160 cm; Wt 62.1 kg
[~2019-08-13] MED LIST changes: +ANORO ELLIPTA1 EACH INH
[2019-08-13 11:09] VITALS: BP 117/68
--- NOTE | 2019-08-13 11:23 | NUR ---
Pain Clinic Assessment: 1. History of Osteoarthritis: KNEES WRISTS History of Rheumatoid Arthritis: DENIES 2. Height: 5 ft. 3 in. 160.0 cm. Weight: 137.0 lb. oz. 62.143 kg. Patient's BMI: 24.3 3. Vital Signs: BP: 117/68 Pulse: 70 Resp: 16 Temp: 02 Sat: 100 ECG Mon: 4. Pain Intensity: 7 5. Fall Risk: Dizziness: N Needs help standing or walking: N Fallen in the last 3 months: N Fall risk comments: 6. Patient on Blood Thinner: None 7. History of Hypertension: N 8. Opioid Therapy greater than 6 weeks: Y Opiate Contract Signed: 06/09/17 9. Risk Assessment Tool Provided: LOW RISK -2 10. Functional Assessment Tool: 11. Recreational Drug Use: Never Drug Type: Tobacco Use: Former Smoker Tobacco Type: Amount or Packs/day: How Many Years: Alcohol Use: No Frequency: Quant:
--- NOTE | 2019-08-14 08:01 | HPC ---
[facility] [place] [address] PAIN MANAGEMENT CONSULTATION Name: TAMRA TEJEDA Room #: REG [facility] M.R.#: [id number] Admission: 08/13/19 Attend Phys: Maddie Campbell Discharge: Date of : 42 Report #: [id number] THIS REPORT FOR: cc: Nima Navarrete MD, Douglas James MD Hocker,Maddie MART ~ CC: Jean Pierre Campos MD DATE OF SERVICE: 08/13/2019 CHIEF COMPLAINT: Bilateral knee pain and low back pain. HISTORY OF PRESENT ILLNESS: As you know, this is a very pleasant 79-year-old female who returns to the pain clinic today for refill of her medications. Today, she is reporting that her low back and knee pain was intensified last week, she is unsure why. She states that has decreased slightly this week, rating her pain as 7/10. She feels that any activity such as making her bed, cleaning up in the kitchen has been increasing her pain in her lower back, which she states is an aching, constant throbbing pain. She feels that the Tylenol No. 3 is not beneficial and has stopped taking it. She is unsure that the morphine is helpful either, though she has continued to take this medicine twice a day. The patient does report that the Movantik is beneficial in helping relieve her opioid-induced constipation. She does also take MiraLax twice a day and reports that this regimen keeps her very regular and she would like a refill of her Movantik. ALLERGIES: LATEX, SULFA, AMBIEN, AMITRIPTYLINE, BENADRYL, CELEXA, LEVOTHYROXINE, LUNESTA and IBUPROFEN. CURRENT LIST OF MEDICATIONS: Anoro Ellipta, Movantik, morphine sulfate 15 mg b.i.d., vitamin C, probiotic, tizanidine p.r.n., sumatriptan 100 mg, Celebrex, atorvastatin, MiraLax, fish oil, melatonin, aspirin, multivitamin, clonazepam, vitamin D, calcium, hydroxychloroquine. PATIENT'S PQRS: 1. She has a history of osteoarthritis in her knees and wrists. Denies any rheumatoid arthritis. 2. Height is 5 feet 3 inches, weight is 137, BMI is 24. 3. Vital signs 117/68, pulse is 70, respirations 16, oxygen sat is 100, pain score 7/10. Fall risk: Denies dizziness, does not need help walking or standing, has not fallen in the last 3 months. The patient is not on any blood thinners or medicine for hypertension. Her opioid therapy is greater than 6 weeks; therefore, an opioid signed contract is on the chart. Risk assessment tool is low. Functional assessment is 33/70[place] [address] PAIN MANAGEMENT CONSULTATION Name: NEGRO TEJEDAColton AGARWALIS Room #: REG [facility] Angel#: [id number] Admission: 08/13/19 Attend Phys: Maddie Campbell Discharge: Date of : 42 Report #: [id number] 4. Recreational drug use, she denies. She is a former smoker and does not drink alcohol. According to the prescription monitoring system, the patient is filling appropriately for her medications in a timely fashion. She is due to fill her medications this week. According to the CDC guidelines, her morphine mEq is 30 MME per day. PHYSICAL EXAMINATION: GENERAL: This is a well-developed, well-nourished, alert and orientated, slightly anxious 79-year-old female who appears her stated age, placing her current pain score at 7/10 today. HEENT: Normocephalic, atraumatic. Extraocular eye muscles are intact. She is wearing a mask. MUSCULOSKELETAL: Tenderness in her bilateral knees that increases with ambulation and standing, slight 1+ edema in her lower extremities today. Her lower extremity strength judged to be 5/5 in all major muscle groups. She has tenderness in the lumbar region of her lower back. IMPRESSION: 1. Chronic pain with complex medical management under terms of written opioid agreement. 2. Chronic back pain. 3. Osteoarthritis involving her knees and hands. 4. Scoliosis. 5. Osteoporosis. 6. Lupus. 7. Opioid-induced constipation. We reviewed the fact that opiate medications are being used to provide analgesia adequate to support activities of daily living, not attempting to achieve a specific pain score on the 0-10 Visual Analog Scale. The current opiate medications are providing sufficient analgesia to allow the patient to participate in activities of daily living. The patient is not exhibiting any aberrant behavior suggestive of drug diversion. The patient is not having any adverse reactions to medications. The patient is not suffering from daytime somnolence or mental acuity changes. The patient is managing opiate-induced constipation with appropriate rmbz-bnt-hcvejzf agents and dietary considerations. The patient was counseled on concern for caution with operating a motor vehicle while using opiate medications. PLAN: 1. We discussed treatment options with the patient today. The patient finds her medications have not been as beneficial as they had been in the past. She believes that the Tylenol No. 3 is not helpful and has stopped taking that medication. After a lengthy discussion with the patient about her opioid [facility] [address] [place] [address] PAIN MANAGEMENT CONSULTATION Name: TAMRA TEJEDA Room #: REG [facility]#: [id number] Admission: 08/13/19 Attend Phys: Maddie Campbell Discharge: Date of : 42 Report #: [id number] medications, I think it will be beneficial for her to retry morphine sulfate 15 mg 3 times a day. She had been stable on this medication for quite some time from 2014 until last summer where we did try to reduce her to a lower dose, but continues to have increasing pain issues. The patient is unable to remember taking 3 tablets a day, but per perusal of the chart does prove this to be the case. We will trial this for 1 month and see if it is beneficial. Scripts sent electronically by Dr. Campos for MS Contin 15 mg t.i.d., #90. 2. Instructed the patient to call the office within a month to report how she is doing. If she finds this medication is agreeable to decreasing her pain, we will send a second month electronically. During this time, the patient is not to be taking her Tylenol No. 3 tablets. 3. I will continue her Movantik 12.5 mg, #30 with 5 additional refills to her pharmacy. The patient finds this medication very beneficial with her opioid-induced constipation. 4. The patient is seen in collaboration with Dr. Jean Pierre Campos. <ELECTRONICALLY SIGNED> By: Maddie Campbell 08/14/19 0801 [id number] [id number] Maddie Campbell /tushar
== END ==
LOC: PAIN 06:58
DX: M17.0 Bilateral primary osteoarthritis of knee (principal); M54.5 Low back pain; F11.20 Opioid dependence, uncomplicated; M41.9 Scoliosis, unspecified; M81.0 Age-related osteoporosis without current pathological fracture; K59.00 Constipation, unspecified; Z88.0 Allergy status to penicillin; Z88.1 Allergy status to other antibiotic agents; Z88.5 Allergy status to narcotic agent; Z91.040 Latex allergy status; Z91.048 Other nonmedicinal substance allergy status; Z88.8 Allergy status to other drugs, medicaments and biological substances; Z79.899 Other long term (current) drug therapy

== ENCOUNTER → 2019-09-27 | Outpatient (CLI) | payer OTHER ==
[~2019-09-27] VITALS: Ht 160 cm; Wt 60.1 kg
[~2019-09-27] MED LIST changes: +PRESERVISION A1 EAC2 PO
[2019-09-27 08:07] VITALS: BP 128/84
--- NOTE | 2019-09-27 08:16 | NUR ---
Pain Clinic Assessment: 1. History of Osteoarthritis: KNEES WRISTS History of Rheumatoid Arthritis: DENIES 2. Height: 5 ft. 3 in. 160.0 cm. Weight: 132.6 lb. oz. 60.147 kg. Patient's BMI: 23.5 3. Vital Signs: BP: 128/84 Pulse: 79 Resp: 16 Temp: 02 Sat: 95 ECG Mon: 4. Pain Intensity: 5 5. Fall Risk: Dizziness: N Needs help standing or walking: N Fallen in the last 3 months: N Fall risk comments: 6. Patient on Blood Thinner: None 7. History of Hypertension: N 8. Opioid Therapy greater than 6 weeks: Y Opiate Contract Signed: 06/09/17 9. Risk Assessment Tool Provided: LOW RISK -2 10. Functional Assessment Tool: 11. Recreational Drug Use: Never Drug Type: Tobacco Use: Former Smoker Tobacco Type: Amount or Packs/day: How Many Years: Alcohol Use: No Frequency: Quant:
--- NOTE | 2019-09-27 10:49 | HPC ---
[facility] [place] [address] PAIN MANAGEMENT CONSULTATION Name: TAMRA TEJEDA Room #: REG [facility] M..#: [id number] Admission: 09/27/19 Attend Phys: Maddie Campbell Discharge: Date of : 44 Report #: [id number] THIS REPORT FOR: cc: Nima Navarrete MD, Douglas James MD Hocker, Amanda CNS ~ CC: Maddie MART N Freddie Kasper MD DATE OF SERVICE: 09/27/2019 CHIEF COMPLAINT: Bilateral knee pain, low back pain. HISTORY OF PRESENT ILLNESS: This is a 79-year-old female who returns to the pain clinic today for refill of her opioid medications. At last visit, we did trial her on morphine sulfate 3 times a day, which she had taken previously. She reports today that has made her too sleepy in the afternoon, so she started taking her Tylenol No. 3 that she had from previous prescription fills on occasional afternoons as well as a heating pad on her low back, which is her most problematic area and found this is more beneficial. Today, she is reporting her pain score of 5/10. It is worse with any bending, but the medications do help "dial down her pain." The patient continues to have ongoing problems with her constipation. She takes a Movantik every day as well as MiraLax twice a day and feels that this is beneficial for the most part. The patient today would like refills of her medications. ALLERGIES: LATEX, SULFA, METHOCARBAMOL, AMBIEN, AMITRIPTYLINE, BENADRYL, CELEXA, LEVOFLOXACIN, LUNESTA, AND IBUPROFEN. PQRS: 1. She has osteoarthritis in her knees and wrists. Denies rheumatoid arthritis. 2. Height is 5 feet 3 inches, weight is 132, BMI is 23. 3. Vital signs 128/84, pulse is 79, respirations 16, oxygen sat is 95, pain score is 5/10. 4. Denies dizziness, does not need help walking or standing, has not fallen in the last 3 months. 5. The patient is not on any blood thinners or medicine for hypertension. 6. Opioid therapy is greater than 6 weeks; therefore, an opioid signed contract is on the chart. Risk assessment is low. Functional assessment is 33/70. She does not use recreational drugs or alcohol and is a former smoker. According to the prescription monitoring system, the patient last filled her morphine in July. She does also take clonazepam as a benzodiazepine. The patient was instructed about the risks of these medications together. Her morphine mEq is 30 MME per day. [address] [address] PAIN MANAGEMENT CONSULTATION Name: NIKHILTAMRAPROSPER ARDON Room #: REG CL Klever.#: [id number] Admission: 09/27/19 Attend Phys: Maddie Campbell Discharge: Date of : 42 Report #: [id number] PHYSICAL EXAMINATION: GENERAL: This is an alert and orientated, well-developed, well-nourished 79-year-old female who appears her stated age, placing her current pain score 5/10 today. HEENT: Normocephalic, atraumatic. Extraocular eye muscles are intact. She is wearing a mask. MUSCULOSKELETAL: The patient has pain in the lumbosacral region of her spine. Modified Ga[place]len is positive for axial back pain. She does have significant scoliosis without kyphosis. She walks with a slightly antalgic gait. She has tenderness in her bilateral knees that is worse with ambulation. IMPRESSION: 1. Chronic pain with complex medical management under terms of written opioid agreement. 1. Chronic back pain. 2. Osteoarthritis involving her knees and hands. 3. Scoliosis. 4. Osteoporosis. 5. Lupus. 6. Opioid-induced constipation. We reviewed the fact that opiate medications are being used to provide analgesia adequate to support activities of daily living, not attempting to achieve a specific pain score on the 0-10 Visual Analog Scale. The current opiate medications are providing sufficient analgesia to allow the patient to participate in activities of daily living. The patient is not exhibiting any aberrant behavior suggestive of drug diversion. The patient is not having any adverse reactions to medications. The patient is not suffering from daytime somnolence or mental acuity changes. The patient is managing opiate-induced constipation with appropriate [id number]-bwprrwo agents and dietary considerations. The patient was counseled on concern for caution with operating a motor vehicle while using opiate medications. PLAN: 1. We discussed treatment options with the patient today. We had trialed morphine sulfate 15 mg 3 times a day. This did cause too much sedation for the patient in the afternoon, she had called throughout the trial period and we had decreased her back to 2 a day. Today, we will continue her morphine sulfate 15 mg b.i.d. and then allow her to take Tylenol No. 3 several times throughout the week for breakthrough pain when she does have increased activity that causes increase in her pain. Scripts were written for 2 months of these medications today by Dr. Connor Kasper who is collaborating care with me. The patient verbalizes understanding that we will trial this for 2 months to see how she is doing. 2. We will continue her on her Movantik that she takes for her opioid-induced [address] [address] PAIN MANAGEMENT CONSULTATION Name: TAMRA TEJEDA Room #: REG [facility] Hilary.#: [id number] Admission: 09/27/19 Attend Phys: Maddie Campbell Discharge: Date of : 44 Report #: [id number] constipation. No scripts needed today, though encouraged her to continue her MiraLax as needed as well, explaining that if she does not have a bowel movement every day that is still normal as long as she stays regular with her bowel regimen. 3. Again, the patient was seen in collaboration today with Dr. Connor Kasper. <ELECTRONICALLY SIGNED> By: Maddie Campbell 09/27/19 1049 [id number] [id number] Maddie Campbell /nt
== END ==
LOC: PAIN 06:43
PROVIDERS: ATTEND Clinical Nurse Specialist Adult Health
DX: M17.0 Bilateral primary osteoarthritis of knee (principal); K59.09 Other constipation; M32.9 Systemic lupus erythematosus, unspecified; M81.0 Age-related osteoporosis without current pathological fracture; M41.9 Scoliosis, unspecified; M19.041 Primary osteoarthritis, right hand; M19.042 Primary osteoarthritis, left hand; M54.5 Low back pain; G89.29 Other chronic pain; F11.20 Opioid dependence, uncomplicated; Z88.8 Allergy status to other drugs, medicaments and biological substances; Z79.899 Other long term (current) drug therapy

== ENCOUNTER → 2019-11-22 | Outpatient (CLI) | payer OTHER ==
[~2019-11-22] MED LIST changes: +TRELEGY ELLIPT1 EACH INH
== END ==
LOC: LAB 13:11
PROVIDERS: ATTEND Pediatrics
DX: Z20.828 Contact with and (suspected) exposure to other viral communicable diseases (principal)

== ENCOUNTER → 2019-11-22 | Outpatient (CLI) | payer OTHER | LOC: RAD 10:02 | PROVIDERS: ATTEND Pediatrics | DX: J43.9 Emphysema, unspecified (principal); I71.2 Thoracic aortic aneurysm, without rupture; M41.80 Other forms of scoliosis, site unspecified; J98.4 Other disorders of lung ==

== ENCOUNTER → 2019-11-23 | Outpatient (CLI) | payer OTHER ==
[~2019-11-23] VITALS: Ht 160 cm; Wt 60.7 kg
[2019-11-23 09:30] VITALS: BP 118/61
--- NOTE | 2019-11-23 09:45 | NUR ---
Pain Clinic Assessment: 1. History of Osteoarthritis: KNEES WRISTS History of Rheumatoid Arthritis: DENIES 2. Height: 5 ft. 3 in. 160.0 cm. Weight: 133.8 lb. oz. 60.691 kg. Patient's BMI: 23.7 3. Vital Signs: BP: 118/61 Pulse: 69 Resp: 16 Temp: 02 Sat: 98 ECG Mon: 4. Pain Intensity: 5-6 5. Fall Risk: Dizziness: N Needs help standing or walking: N Fallen in the last 3 months: N Fall risk comments: 6. Patient on Blood Thinner: None 7. History of Hypertension: N 8. Opioid Therapy greater than 6 weeks: Y Opiate Contract Signed: 06/09/17 9. Risk Assessment Tool Provided: LOW RISK -2 10. Functional Assessment Tool: 11. Recreational Drug Use: Never Drug Type: Tobacco Use: Former Smoker Tobacco Type: Cigarettes Amount or Packs/day: How Many Years: Alcohol Use: No Frequency: Quant:
--- NOTE | 2019-12-07 15:50 | HPC ---
[facility] [place] [address] [address] [place] [address] PAIN MANAGEMENT CONSULTATION Name: TAMRA TEJEDA Room #: REG SIN BlancoCharoSteve.#: [id number] Admission: 11/23/19 Attend Phys: Jazlyn Kasper MD Discharge: Date of : 42 Report #: [id number] THIS REPORT FOR: cc: Nima Navarrete MD,Nima Kasper,Jazlyn Frazier MD ~ CC: Nima Kasper DATE OF SERVICE: 11/23/2019 CHIEF COMPLAINT: Here for medication renewal. HISTORY: The patient is a 79-year-old female who has been followed in the pain clinic because of chronic pain. She suffers from osteoarthritis and has had complaints of bilateral knee pain. She is status post knee replacements and has had arthroplasty on 06/2017. She continues to find pain in her knees as well as pain in her right wrist and hands to be problematic. She also has a history of scoliosis. She is not a surgical candidate. She has returned today for renewal of her medications. She has had cataract surgery recently on the left side. She is planning on undergoing surgery on the right side in the near future. She rates her pain today as a 5-6. ALLERGIES: ELAVIL, CELEXA, BENADRYL, LUNESTA, LATEX SENSITIVITY, LEVOFLOXACIN, METHOCARBAMOL, SULFA, AMBIEN, IBUPROFEN, LYRICA, STEROIDS CAUSED AGITATION IN 2014. CURRENT MEDICATIONS: Morphine extended release 15 mg 1 p.o. t.i.d., the patient has been provided with Movantik 12.5 mg p.r.n. constipation, Plaquenil 200 mg b.i.d., calcium 500 mg, vitamin D 2000 units b.i.d., clonazepam 2 mg, multivitamins, Centrum Silver, aspirin 81 mg, melatonin 3 mg - 20 mg at bedtime, fish oil 1000 mg, MiraLax, Lipitor 20 mg, Celebrex 200 mg, sumatriptan 100 mg p.r.n. migraines, tizanidine 4 mg t.i.d., trospium 20 mg daily, probiotic, ascorbic acid/vitamin C 500 mg, PreserVision capsules, and Trelegy 100/62.5/25 mcg. PAIN CLINIC ASSESSMENT AND PQRS: 1. The patient has a history of osteoarthritis involving her right lower extremity and history of rheumatoid arthritis. The patient has had knee surgery. The patient is being treated by Dr. More for rheumatoid arthritis. 2. Height 5 feet 2 inches, weight 133 pounds, and BMI is 23. 3. Vital Signs: Blood pressure 118/61, pulse 69, respiratory rate 16, room air saturation 98%. 4. Pain intensity 5-6/10. 5. Fall history: The patient has not fallen in the last 3 months. 6. Blood thinner. The patient is not on a blood thinning medication. [address] [address] PAIN MANAGEMENT CONSULTATION Name: NIKHILTAMRAPROSPER ARDON Room #: [facility] [id number] Admission: 11/23/19 Attend Phys: Jazlyn Kasper MD Discharge: Date of : 42 Report #: [id number] 7. Hypertension. The patient is not being treated for hypertension. 8. Opioids greater than 6 weeks. The patient received medication from the pain clinic. 9. Risk assessment tool, low for opioid use. 10. Functional assessment tool reviewed. 11. Recreational drug use. The patient denies. 12. Tobacco: The patient is a former smoker. 13. Alcohol. The patient denies use of alcoholic beverages. PHYSICAL EXAMINATION: GENERAL: The patient is a well-developed, well-nourished white female. Appears her stated age. She is alert and oriented x 3. Her affect is appropriate. Speech is fluent. HEENT: Normocephalic, atraumatic. Extraocular eye muscles intact. Sclerae nonicteric. The patient is wearing glasses. She has a facial covering. MUSCULOSKELETAL: Upper extremity muscle strength 4/5 for the major muscle groups in the upper extremity. The patient has generalized soreness. HEART: Regular rate. ABDOMEN: Nontender. EXTREMITIES: Lower extremity, the patient complains of pain in her left lower extremity and also complains of some pain and discomfort in the knee area. IMPRESSION: 1. Chronic pain with complex medications use to help control pain using opioid. 2. Chronic back pain and hip pain. 3. Left knee replacement. 4. Meningitis remote history. 5. Osteoporosis. 6. Scoliosis. 7. Lupus. 8. Carpal tunnel syndrome. 9. Transient ischemic attack. 10. History of urinary tract infections. 11. Bilateral ear infections. 12. 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 13. Mild plaque in the circumflex and right coronary arteries. RECOMMENDATIONS: We discussed treatment options with the patient. At this juncture, we will continue with her medications. A script for her medications have been sent to her pharmacy. She will continue with morphine sulfate 15 mg t.i.d. A total of 2 months of medication has been provided. The patient will also continue with Movantik to combat constipation associated with use of opioids. [facility] [address] [place] [address] PAIN MANAGEMENT CONSULTATION Name: TAMRA TEJEDA Room #: REG [facility].#: [id number] Admission: 11/23/19 Attend Phys: Jazlyn Kasper MD Discharge: Date of : 42 Report #: [id number] We would like to thank you for letting us participate in her care. She has scheduled to undergo an additional right-sided eye surgery in the future. <ELECTRONICALLY SIGNED> By: Jazlyn Kasper MD 12/07/19 1550 0849 [id number] Jazlyn Kasper MD /nt
== END ==
LOC: PAIN 06:49
PROVIDERS: ATTEND Anesthesiology Pain Medicine
DX: Z76.0 Encounter for issue of repeat prescription (principal); F11.20 Opioid dependence, uncomplicated; M54.5 Low back pain; M25.559 Pain in unspecified hip; G89.29 Other chronic pain; M81.0 Age-related osteoporosis without current pathological fracture; M41.9 Scoliosis, unspecified; A18.4 Tuberculosis of skin and subcutaneous tissue; G56.00 Carpal tunnel syndrome, unspecified upper limb; G45.9 Transient cerebral ischemic attack, unspecified; H66.93 Otitis media, unspecified, bilateral; I66.02 Occlusion and stenosis of left middle cerebral artery; I25.10 Atherosclerotic heart disease of native coronary artery without angina pectoris; Z87.440 Personal history of urinary (tract) infections; Z96.652 Presence of left artificial knee joint; Z86.61 Personal history of infections of the central nervous system; Z87.891 Personal history of nicotine dependence; Z88.8 Allergy status to other drugs, medicaments and biological substances; Z79.899 Other long term (current) drug therapy

== ENCOUNTER → 2019-11-28 | Outpatient (CLI) | payer OTHER | LOC: SJCVCIMAG 07:21 | PROVIDERS: ATTEND Internal Medicine Cardiovascular Disease | DX: I25.10 Atherosclerotic heart disease of native coronary artery without angina pectoris (principal); J44.9 Chronic obstructive pulmonary disease, unspecified; I25.2 Old myocardial infarction; I10 Essential (primary) hypertension; E78.00 Pure hypercholesterolemia, unspecified; Z79.899 Other long term (current) drug therapy; Z87.891 Personal history of nicotine dependence ==

== ENCOUNTER → 2020-02-20 | Outpatient (CLI) | payer OTHER ==
[~2020-02-20] VITALS: Ht 160 cm; Wt 63.5 kg
[~2020-02-20] MED LIST changes: +AMOXICILLIN 50500 MG PO; +APAP W/CODEINE1 TA2 PO; +DURAGESIC1 EACH TOP; +LACTULOSE10 GM/152; +PRESERVISION A1 EACH PO
--- NOTE | ~2020-02-20 | HPC ---
[facility] [address] [place] [address] PAIN MANAGEMENT CONSULTATION Name: TAMRA TEJEDA Room #: REG [facility] M..#: [id number] Admission: 02/20/20 Attend Phys: Maddie Campbell Discharge: Date of : 42 Report #: [id number] THIS REPORT FOR: cc: Nima Navarrete MD, Douglas James MD Hocker,Maddie MART ~ CC: Maddie Kasper MD DATE OF SERVICE: 02/20/2020 CHIEF COMPLAINT: Chronic back pain and osteoarthritis. HISTORY OF PRESENT ILLNESS: This is a pleasant 79-year-old female who returns to the pain clinic today for medication discussion. She is reporting to me a pain score of 10/10. She believes the morphine is not beneficial. She feels that it does not control her pain very well. She is wondering if she may go back to fentanyl patches, which she had been on for about 5 years. During that time, she did find that they were beneficial in controlling her pain, keeping her pain more level and not having peaks and valleys. She also reports she would like Tylenol No. 3 for her breakthrough pain medicine. Evidently at her last visit that was not renewed and she has been supplementing with Tylenol Extra Strength. She reports most of her pain is located in her low back as well as her knees and hands. She suffers quite a bit from osteoarthritis and does have scoliosis as well that increases her pain in her back. She reports any bending activity and housework exacerbates her pain and currently she feels that nothing is helping alleviate her pain except lying down in bed. ALLERGIES: LATEX, SULFA, METHOCARBAMOL, AMBIEN, AMITRIPTYLINE, BENADRYL, CELEXA, LEVAQUIN, LUNESTA, AND IBUPROFEN. MEDICATIONS: PreserVision, lactulose, amoxicillin, Movantik, morphine sulfate ER t.i.d., Trelegy, vitamin C, probiotic, tizanidine, sumatriptan, Celebrex, Lipitor, MiraLax, fish oil, melatonin, aspirin, multivitamin, clonazepam, vitamin D3, calcium, Plaquenil, and Tylenol No. 3. PQRS: 1. She does have osteoarthritis as well as rheumatoid arthritis, osteo involves her lower extremities and her hands. 2. Height is 5 feet 2 inches, weight is 140, BMI is 24. 3. Vital signs 120/73, pulse is 78, respirations 14, oxygen sat is 98. 4. Pain score is 10/10. 5. Complains of slight dizziness, has not fallen in the last 3 months and does not use any assisted devices. 6. The patient is not on any blood thinners [place] [address] PAIN MANAGEMENT CONSULTATION Name: TAMRA TEJEDA Room #: REG CL Angel#: [id number] Admission: 02/20/20 Attend Phys: Maddie Campbell Discharge: Date of : 42 Report #: [id number] 7. Opioid therapy is greater than 6 weeks; therefore, an opioid signed contract is on the chart. Risk assessment is low. Functional assessment is 33/70. 8. Recreational drug use, she denies. She is a former smoker and does not drink alcohol. According to the prescription monitoring system, she is filling appropriately for her medications, filling them in a timely fashion. She is due to fill her medications today. Her morphine milliequivalent is 45 MME. PHYSICAL EXAMINATION: GENERAL: This is alert and orientated, well-developed, well-nourished 79-year-old female who appears her stated age, placing her current pain score at 10/10 today. HEENT: Normocephalic, atraumatic. Extraocular eye muscles are intact. She is wearing glasses and a face mask. ABDOMEN: Nontender. EXTREMITIES: Lower extremity strength is symmetrical at 5/5, though has discomfort and tenderness in her left knee. She has scoliosis present without kyphosis or lordosis. Upper extremity strength is 4/5 in all major muscle groups. She has generalized discomfort in multiple joints. IMPRESSION: 1. Chronic pain with complex medication, use of opioid medications. 2. Chronic back pain and hip pain. 3. Osteoporosis. 4. Scoliosis. 5. Lupus. 6. Carpal tunnel syndrome. We reviewed the fact that opiate medications are being used to provide analgesia adequate to support activities of daily living, not attempting to achieve a specific pain score on the 0-10 Visual Analog Scale. The current opiate medications are providing sufficient analgesia to allow the patient to participate in activities of daily living. The patient is not exhibiting any aberrant behavior suggestive of drug diversion. The patient is not having any adverse reactions to medications. The patient is not suffering from daytime somnolence or mental acuity changes. The patient is managing opiate-induced constipation with appropriate jmau-hxs-ufjevuo agents and dietary considerations. The patient was counseled on concern for caution with operating a motor vehicle while using opiate medications. A physical exam was performed and the patient's functional status was evaluated. All patients with back pain were advised against the bed rest greater than 4 days and were advised to return to normal activities. Pain score assessment was noted and the treatment plan was reviewed with the patient. All current medications, both prescribed and OTC were reviewed and reconciled on the [facility] [address] [place] [address] PAIN MANAGEMENT CONSULTATION Name: TAMRA TEJEDA Room #: REG [facility] M..#: [id number] Admission: 02/20/20 Attend Phys: Maddie BARRON Campbell Discharge: Date of : 42 Report #: [id number] electronic medical record. Tobacco screening was accomplished and smoking cessation was advised when indicated. BMI was noted and diet/exercise modification was recommended for all patients following outside normal parameters. I reviewed with the patient today their responsibilities to safeguard prescription medications, reviewed their responsibility to utilize medications only as prescribed by the physician. They are to seek and receive pain medications only from 1 physician group ( [facility]). They are to use 1 pharmacy and keep the clinic informed if they change pharmacies. Their responsibilities include making followup visits in a timely fashion and to avoid abrupt discontinuation of medication usage. Their responsibilities further include bringing their medications (bottles from the pharmacy with residual pills) to the visit for possible confirmation of pill counts and the patient understands it is their responsibility to submit to random drug screens to ensure both that the medications prescribed are present, and that no other controlled substances are present. All prescriptions provided today were generated electronically. PLAN: 1. We discussed treatment options with the patient today. The patient is finding her morphine not beneficial in controlling her pain. She would like to return to fentanyl. In the past, she had been on 25 mcg from 2012 to 2016, which at that time, we rotated her to morphine 15 mg t.i.d. The patient has also tried hydrocodone and Tylenol No. 3 in the past for short-acting medications. I believe since she has found the morphine ineffective in controlling her pain, we will trial her on a fentanyl 12 mcg patch, explained to her the CDC guidelines of trying to keep people below 50 morphine mEq if we start at 12.5 mcg that is a 30 morphine mEq according to the CDC guidelines and then we will allow her two Tylenol No. 3 a day, which still puts her below 50 mEq per day. The patient may find that the fentanyl patch gives her more steady release of pain and therefore helps her overall pain control. I explained to her that it may take up to 12 hours before for the first patch reaches peak and patient instructed to call us after her second patch to report how she is doing with pain control. The patient verbalizes understanding. 2. Dr. Kasper will send electronically 5 patches for a 2-week trial of this medication and Tylenol No. 3, #60. 3. The patient continues to have ongoing problems with constipation and feels bloated and distended at times. I encouraged her to see a GI specialist. She has been taking MiraLax, lactulose, probiotic on a fairly regular basis. ____ number was given to her today. 4. The patient will correspond by phone and then followup in 2 months. By: [id number] Maddie Campbell /tushar
[2020-02-20 10:43] VITALS: BP 120/73
--- NOTE | 2020-02-20 11:16 | NUR ---
Pain Clinic Assessment: 1. History of Osteoarthritis: KNEES WRISTS History of Rheumatoid Arthritis: DENIES 2. Height: 5 ft. 3 in. 160.0 cm. Weight: 140.0 lb. oz. 63.504 kg. Patient's BMI: 24.8 3. Vital Signs: BP: 120/73 Pulse: 78 Resp: 14 Temp: 02 Sat: 98 ECG Mon: 4. Pain Intensity: 10 5. Fall Risk: Dizziness: Y Needs help standing or walking: N Fallen in the last 3 months: N Fall risk comments: 6. Patient on Blood Thinner: None 7. History of Hypertension: N 8. Opioid Therapy greater than 6 weeks: Y Opiate Contract Signed: 06/09/17 9. Risk Assessment Tool Provided: LOW RISK -2 10. Functional Assessment Tool: 11. Recreational Drug Use: Never Drug Type: Tobacco Use: Former Smoker Tobacco Type: Amount or Packs/day: How Many Years: Alcohol Use: No Frequency: Quant:
== END ==
LOC: PAIN 06:44
PROVIDERS: ATTEND Clinical Nurse Specialist Adult Health
DX: M81.0 Age-related osteoporosis without current pathological fracture (principal); M19.042 Primary osteoarthritis, left hand; M19.041 Primary osteoarthritis, right hand; M54.5 Low back pain; M41.9 Scoliosis, unspecified; G56.00 Carpal tunnel syndrome, unspecified upper limb

== ENCOUNTER 2020-03-04 13:07 | Emergency (ER) | payer OTHER ==
[~2020-03-04] VITALS: Ht 154.9 cm; Wt 59.0 kg
[2020-03-04 17:17] LABS: ABSOLUTE NEUTROPHILS 3.1 thou/uL (1.4-8.2); BASOPHILS 0.4 % (0.0-2.0); EOSINOPHILS 2.4 % (0.0-3.0); HEMATOCRIT 40.5 % (37.0-47.0); HEMOGLOBIN 13.4 gm/dL (12.0-15.0); LYMPHOCYTES 24.5 % (24.0-44.0); MCH 29.4 pg (26.0-34.0); MONOCYTES 6.3 % (1.0-8.0); PLATELET COUNT 255 thou/uL (150-400); POLYS 66.4 % (36.0-66.0); RBC 4.55 mil/uL (4.20-5.00); RDW 13.5 % (10.5-14.5); WBC 4.7 thou/uL (4.0-11.0)
[2020-03-04 17:29] LABS: CALCIUM 9.8 mg/dL (8.5-10.1); CREATININE 0.7 mg/dL (0.6-1.0); MAGNESIUM 2.3 mg/dL (1.8-2.4); POTASSIUM 4.4 mmol/L (3.5-5.1)
[2020-03-04 19:04] LABS: URINE BILIRUBIN NEGATIVE (Negative); URINE BLOOD NEGATIVE (Negative); URINE CLARITY CLEAR; URINE COLOR YELLOW; URINE GLUCOSE-RANDOM* NEGATIVE (Negative); URINE KETONES NEGATIVE (Negative); URINE LEUKOCYTES-REFLEX NEGATIVE (Negative); URINE NITRITE-REFLEX NEGATIVE (Negative); URINE PROTEIN (DIPSTICK) NEGATIVE (Negative); URINE UROBILINOGEN 0.2 E.U./dl (0.2-1.0)
[2020-03-04 19:13] VITALS: BP 156/78
--- NOTE | 2020-03-05 07:21 | EKG ---
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
== END 2020-03-04 19:14 | disposition home or self-care (01) ==
LOC: ER 13:07
PROVIDERS: Emergency Medicine
DX: R53.1 Weakness (principal); R06.02 Shortness of breath; I25.10 Atherosclerotic heart disease of native coronary artery without angina pectoris; Z86.73 Personal history of transient ischemic attack (TIA), and cerebral infarction without residual deficits; Z79.899 Other long term (current) drug therapy; Z79.82 Long term (current) use of aspirin; Z88.2 Allergy status to sulfonamides; Z88.8 Allergy status to other drugs, medicaments and biological substances; Z91.040 Latex allergy status; Z88.1 Allergy status to other antibiotic agents; Z87.891 Personal history of nicotine dependence; Z20.828 Contact with and (suspected) exposure to other viral communicable diseases

== ENCOUNTER → 2020-03-25 | Outpatient (CLI) | payer OTHER ==
[~2020-03-25] VITALS: Ht 152.4 cm; Wt 63.0 kg
[~2020-03-25] MED LIST changes: +CALCIUM 600 +1 EA11 PO; +TYLENOL COLD &1 EACH PO
--- NOTE | ~2020-03-25 | HPC ---
[facility] [place] [address] PAIN MANAGEMENT CONSULTATION Name: TAMRA TEJEDA Room #: REG SIN Klever.#: [id number] Admission: 03/25/20 Attend Phys: Jose F Strange DO Discharge: Date of : 42 Report #: [id number] THIS REPORT FOR: cc: Nima Navarrete MD, Douglas James MD Johnson, James E. DO ~ DATE OF SERVICE: 03/25/2020 CHIEF COMPLAINT: Chronic low back pain, bilateral lower extremity pain. HISTORY OF PRESENT ILLNESS: As you know, the patient is a 79-year-old female who has been followed by my partner, Dr. Freddie Kasper for medication management to address her chronic low back pain and bilateral lower extremity pain that is not amenable to surgical options. She was on morphine in the past and reportedly was doing very well. There were some adjustments in medication management where she was switched to fentanyl in January. She returned again in February reporting no side effects to medication and stating that she was doing very well. She then contacted our clinic on 03/12/2020 indicating that she was having difficulty with the medications, leading to somnolence and disorientation. She was advised to slowly wean off of the fentanyl patches for which she has done. She states that symptoms did improve mildly. She was advised to only use breakthrough pain medication in the form of Tylenol No. 3, but apparently the patient returned to her morphine dosing and stated that she was doing well. She returned today in followup visit to be seen urgently to discuss the adjustments in therapy. She indicates that her pain's level of 4/10. States pain is aching, constant, throbbing sensation, exacerbated with standing, bending, doing housework and any activities. Otherwise, pain is improved with the use of morphine based on her report today. She returns to adjust back to the morphine therapy. She was placed on my schedule today as there was no availability to see my partner, Dr. Freddie Kasper before the first of next year. ALLERGIES: LATEX, SULFA, METHOCARBAMOL, ZOLPIDEM, AMITRIPTYLINE, CITALOPRAM, DIPHENHYDRAMINE, LEVOFLOXACIN, LUNESTA, AND IBUPROFEN. CURRENT MEDICATIONS: Tylenol Cold and Flu 1 tab p.r.n., calcium carbonate 1 tab per day, Anoro Ellipta 62.5/25 mcg inhaled once a day, Tylenol No. 3 with Codeine 1 tab b.i.d. p.r.n., multivitamin 1 tab per day, lactulose 15 mL twice a day, ascorbic acid 500 mg once a day, lactobacillus 1 tab per day, tizanidine 4 mg t.i.d. p.r.n. muscle spasm, sumatriptan 100 mg p.r.n., celecoxib 200 mg twice a day, atorvastatin 20 mg once a day, MiraLax 17 grams once a day, omega-3 fish oil 1 tab per day, melatonin 3 mg p.o. at bedtime, aspirin 81 mg per day, multivitamin 1 tab per day, clonazepam 2 mg 1.5-2 tabs p.o. at bedtime, cholecalciferol 2000 units once a day, Plaquenil 200 mg twice a day. SOCIAL HISTORY: The patient denies tobacco, alcohol, IV or illicit drug use. 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 She is unaccompanied at today's visit. IMAGING: No new imaging available. PQRS: The patient has known arthritic changes of the lumbar spine, bilateral knees and wrists. No rheumatoid arthritis, though she is taking Plaquenil. Pain intensity 4/10. She is not a fall risk, has not had a fall in last 3 months, not on blood thinners and reports she is not treated for hypertension. She is on chronic opioids, has a low to moderate opioid addiction potential based on assessment tool. Pain impact 33/70, moderate interference of daily activities secondary to pain. PHYSICAL EXAMINATION: VITAL SIGNS: Blood pressure 142/70, pulse 73, respiratory rate 16 and unlabored. The patient is 96% on room air. Height 5 feet tall, weight 139 pounds, BMI calculated at 27.1. GENERAL: Well-developed, well-nourished, well-hydrated, somewhat confused 79-year-old female, reporting pain score today 4/10. HEENT: Normocephalic, atraumatic. Pupils are round. The patient is wearing a mask in compliance with COVID-19 regulations. EXTREMITIES: Show no clubbing, no cyanosis. No appreciable edema. MUSCULOSKELETAL: The patient has some palpatory tenderness over the paraspinal musculature of lower lumbar spine. No spinous process tenderness. Seated straight leg raising negative. Supine straight leg raising negative. Maxine's test is negative. Modified Gaenslen's positive for axial low back pain. Ankle clonus negative. Gait appears mildly antalgic. There is a slight forward flexion while in a standing position with loss of lordotic curvature. ASSESSMENT: 1. Chronic low back pain. 2. Left knee pain, status post total knee arthroplasty. 3. Scoliosis. 4. History of lupus. 5. Chronic intractable pain. 6. Opioid intolerance. PLAN: 1. The patient returns today in followup visit discussing issues that she believes she had with the fentanyl provided at our last visit. Interestingly, the patient was started on fentanyl in January and reported no side effects throughout January and February. She reported only side effects in February after being on patches for a total of 5 days as she was given a prescription on the and she contacted our clinic on the . She was advised to discontinue the fentanyl at that time, advised to utilize her Tylenol No. 3 with Codeine for analgesic control and to monitor for any potential of withdrawal. [address] [address] PAIN MANAGEMENT CONSULTATION Name: NEGRO TEJEDAColton ARDON [id number] Admission: 03/25/20 Attend Phys: Jose F Strange DO Discharge: Date of : 42 Report #: [id number] The patient indicates that she took it upon herself to restart her morphine 15 mg b.i.d. and has been doing so after she began to experience which she reports as withdrawal-like effects. Her symptoms did improve over about a 6-day period. She returns today to discuss the possibility of rotating back to morphine. She was placed on my schedule as there was no availability to see her current pain physician until early March and we felt it important the patient be seen. Based on the review today, I would recommend she return to morphine as her baseline medication and no further adjustments being made in that therapy. We reviewed the fact that opiate medications are being used to provide analgesia adequate to support activities of daily living, not attempting to achieve a specific pain score on the 0-10 Visual Analog Scale. The current opiate medications are providing sufficient analgesia to allow the patient to participate in activities of daily living. The patient is not exhibiting any aberrant behavior suggestive of drug diversion. The patient is not having any adverse reactions to medications. The patient is not suffering from daytime somnolence or mental acuity changes. The patient is managing opiate-induced constipation with appropriate mwhj-dbu-iupgail agents and dietary considerations. The patient was counseled on concern for caution with operating a motor vehicle while using opiate medications. A physical exam was performed and the patient's functional status was evaluated. All patients with back pain were advised against the bed rest greater than 4 days and were advised to return to normal activities. Pain score assessment was noted and the treatment plan was reviewed with the patient. All current medications, both prescribed and OTC were reviewed and reconciled on the electronic medical record. Tobacco screening was accomplished and smoking cessation was advised when indicated. BMI was noted and diet/exercise modification was recommended for all patients following outside normal parameters. I reviewed with the patient today their responsibilities to safeguard prescription medications, reviewed their responsibility to utilize medications only as prescribed by the physician. They are to seek and receive pain medications only from 1 physician group ( [facility]). They are to use 1 pharmacy and keep the clinic informed if they change pharmacies. Their responsibilities include making followup visits in a timely fashion and to avoid abrupt discontinuation of medication usage. Their responsibilities further include bringing their medications (bottles from the pharmacy with residual pills) to the visit for possible confirmation of pill counts and the patient understands it is their responsibility to submit to random drug screens to ensure both that the medications prescribed are present, and that no other controlled substances are present. All prescriptions provided today were generated electronically. 2. The patient was provided a prescription of morphine ER 15 mg dose 1 tab p.o. [address] [address] PAIN MANAGEMENT CONSULTATION Name: TAMRA TEJEDA Room #: LIZZ Ortiz#: [id number] Admission: 03/25/20 Attend Phys: Jose F Strange DO Discharge: Date of : 42 Report #: [id number] b.i.d. I have given the patient #60 tablets to release today. We recommend a 1-month dosing of medication with return visit to make any fine tuning to that treatment, though again I would not recommend escalating this dose any further. A 15 mg b.i.d. dose is the equivalent of 30 morphine equivalents and this should provide good and prolonged benefit. Further escalating this medication will only lead to potential side effects and dysphoric effects that are not going to be tolerated well by this patient. The patient is in agreement to return in 1 month. 3. We recommend the patient continue use of Tylenol No. 3 for breakthrough pain. She has medication available, does not need a refill of his medication at this juncture. This can be discussed at her followup visit. 4. The patient will be following up with either Dr. Freddie Kasper, her current pain physician or with nurse practitioner, Maddie Campbell in 1 month, scheduling will be done today. If they have any questions or concerns, they can contact me about our adjustments in therapy today. By: [id number] Jose F Strange DO /nt
[2020-03-25 10:45] VITALS: BP 142/70
--- NOTE | 2020-03-25 10:55 | NUR ---
Pain Clinic Assessment: 1. History of Osteoarthritis: KNEES WRISTS History of Rheumatoid Arthritis: DENIES 2. Height: 5 ft. 0 in. 152.4 cm. Weight: 139.0 lb. oz. 63.050 kg. Patient's BMI: 27.1 3. Vital Signs: BP: 142/70 Pulse: 73 Resp: 16 Temp: 02 Sat: 96 ECG Mon: 4. Pain Intensity: 4 5. Fall Risk: Dizziness: N Needs help standing or walking: N Fallen in the last 3 months: N Fall risk comments: 6. Patient on Blood Thinner: None 7. History of Hypertension: N 8. Opioid Therapy greater than 6 weeks: Y Opiate Contract Signed: 06/09/17 9. Risk Assessment Tool Provided: LOW RISK -2 10. Functional Assessment Tool: 11. Recreational Drug Use: Never Drug Type: Tobacco Use: Former Smoker Tobacco Type: Amount or Packs/day: How Many Years: Alcohol Use: No Frequency: Quant:
== END ==
LOC: PAIN 06:52
PROVIDERS: ATTEND Anesthesiology Pain Medicine
DX: M54.5 Low back pain (principal); G89.29 Other chronic pain; M79.604 Pain in right leg; M79.605 Pain in left leg; M41.9 Scoliosis, unspecified; F11.20 Opioid dependence, uncomplicated

== ENCOUNTER → 2020-04-23 | Outpatient (CLI) | payer OTHER ==
--- NOTE | 2020-04-24 09:14 | HPC ---
[facility] [place] [address] [place] [address] PAIN MANAGEMENT CONSULTATION Name: TAMRA TEJEDA Room #: REG [facility] M.R.#: [id number] Admission: 04/23/20 Attend Phys: Maddie Campbell Discharge: Date of : 42 Report #: [id number] THIS REPORT FOR: cc: Nima Navarrete MD, Douglas James MD Hocker,Maddie Wood DATE OF SERVICE: 04/23/2020 CHIEF COMPLAINT: Chronic low back pain, bilateral lower extremity pain. HISTORY OF PRESENT ILLNESS: This is a Telemed appointment that I am speaking with the patient via telephone from 1:30 to 1:49 the patient has agreed upon and consented for. As you know, this is a 79-year-old female who continues to have ongoing low back pain and bilateral lower extremity pain. We have tried numerous medications for her and last month, it was decided to continue her on her morphine sulfate 15 mg twice a day today. Today, the patient is reporting a pain score of 7/10, which is an average pain per her report for her. She believes that the morphine has been beneficial and would like to continue on that medication. She states she continues to have some issues with constipation, but as long as she takes medication on a daily basis she does keep that under control. She is scheduled to have a sonogram of her stomach on 05/01/2020 from her urologist. The patient reports she does not need Tylenol No. 3 today, she takes very sparingly and would only like to have refills of her morphine. She continues to report that her pain is again centrally located in her lower back, knees and occasionally hand pain that is throbbing, constant and aching, worse with any household work and activity. When she rests, it is very beneficial. ALLERGIES: LATEX, SULFA, METHOCARBAMOL, AMBIEN, AMITRIPTYLINE, CITALOPRAM, BENADRYL, LEVOTHYROXINE, LUNESTA AND IBUPROFEN. CURRENT LIST OF MEDICATIONS: Quite extensive and reconciled in the computer, MS Aviles 15 mg b.i.d. PQRS: 1. She has osteoarthritic changes in her hands and knees. Denies any rheumatoid arthritis. 2. Height, weight and vital signs are deferred due to a Telemed appointment. 3. Pain score is 5/10. 4. The patient denies dizziness, does not need assistance with walking, has not fallen in the last 3 months. She is not on any blood thinners or medicine for hypertension. 5. Her opioid therapy is greater than 6 weeks; therefore, an opioid signed contract is on the chart. Risk assessment is low. Functional assessment is 33/70. [place] [address] PAIN MANAGEMENT CONSULTATION Name: TAMRA TEJEDA Room #: REG CLJoyce Ortiz#: [id number] Admission: 04/23/20 Attend Phys: Maddie Campbell Discharge: Date of : 42 Report #: [id number] 6. Recreational drug use, she denies. She is a former smoker and does not drink alcohol. According to the prescription monitoring system, she is due to fill her morphine today, filling in a timely fashion. Her morphine milliequivalent is 30 MME per day, though she does take an occasional Tylenol No. 3, but not needing that medication today. PHYSICAL EXAMINATION: Is a review of systems. She is alert and oriented, answering all my questions appropriately. Denies constipation currently. She feels her abdomen is distended. Pain in the lower back that radiates down her legs bilaterally per her report. ASSESSMENT: 1. Chronic low back pain. 2. Left knee pain, status post total knee arthroplasty. 3. Scoliosis. 4. Lupus. 5. Chronic intractable pain. 6. Opioid intolerance. 7. Constipation. 8. Scheduled medications utilizing scheduled medications. PLAN: 1. We discussed treatment options again with the patient today. She believes that she is better controlled on the morphine than she had been on the fentanyl, so we will continue her on the MS Contin 15 mg twice a day. Scripts will be sent electronically by Dr. Kasper for today and 4-week supply. The patient typically sees Dr. Kasper for her refills and not Dr. Jose F Strange who she did see onetime due to her emergency of her visit. 2. I encouraged the patient to monitor for constipation and she has had issues in the past requiring hospitalization. The patient reports she does take medicine on a daily basis, but is also following up with her urologist and having studies done next month. 3. She is not needing Tylenol No. 3. We will make this available to her if she does call and explains she needs this prior to her next visit. Dr Kasper collaborated care today. The patient is seen today in collaboration with Dr. Kasper. <ELECTRONICALLY SIGNED> By: Maddie Campbell 04/24/20 0914 [id number] Maddie Campbell /tushar
== END ==
LOC: TELEPC 06:55 → PAIN 06:55
PROVIDERS: ATTEND Clinical Nurse Specialist Adult Health
DX: M54.5 Low back pain (principal); M79.604 Pain in right leg; M79.605 Pain in left leg; G89.29 Other chronic pain; M25.562 Pain in left knee; M41.80 Other forms of scoliosis, site unspecified; A18.4 Tuberculosis of skin and subcutaneous tissue; K59.00 Constipation, unspecified; F11.20 Opioid dependence, uncomplicated; Z79.899 Other long term (current) drug therapy; Z88.8 Allergy status to other drugs, medicaments and biological substances

== ENCOUNTER → 2020-06-04 | Outpatient (CLI) | payer OTHER | LOC: SJCVC 11:29 | PROVIDERS: ATTEND Internal Medicine Cardiovascular Disease | DX: R94.31 Abnormal electrocardiogram [ECG] [EKG] (principal); I10 Essential (primary) hypertension; I25.10 Atherosclerotic heart disease of native coronary artery without angina pectoris; E78.00 Pure hypercholesterolemia, unspecified; R60.9 Edema, unspecified; J44.9 Chronic obstructive pulmonary disease, unspecified; I25.2 Old myocardial infarction; M19.90 Unspecified osteoarthritis, unspecified site; E78.5 Hyperlipidemia, unspecified; Z87.891 Personal history of nicotine dependence; Z79.899 Other long term (current) drug therapy; Z79.82 Long term (current) use of aspirin ==

== ENCOUNTER → 2020-06-25 | Outpatient (CLI) | payer OTHER ==
[~2020-06-25] VITALS: Ht 152.4 cm; Wt 63.1 kg
[2020-06-25 12:51] VITALS: BP 125/55
--- NOTE | 2020-06-25 12:58 | NUR ---
Pain Clinic Assessment: 1. History of Osteoarthritis: KNEES WRISTS History of Rheumatoid Arthritis: DENIES 2. Height: 5 ft. 0 in. 152.4 cm. Weight: 139.2 lb. oz. 63.141 kg. Patient's BMI: 27.2 3. Vital Signs: BP: 125/55 Pulse: 68 Resp: 16 Temp: 02 Sat: 99 ECG Mon: 4. Pain Intensity: 4 5. Fall Risk: Dizziness: N Needs help standing or walking: N Fallen in the last 3 months: N Fall risk comments: 6. Patient on Blood Thinner: None 7. History of Hypertension: N 8. Opioid Therapy greater than 6 weeks: Y Opiate Contract Signed: 06/09/17 9. Risk Assessment Tool Provided: LOW RISK -2 10. Functional Assessment Tool: 11. Recreational Drug Use: Never Drug Type: Tobacco Use: Former Smoker Tobacco Type: Amount or Packs/day: How Many Years: Alcohol Use: No Frequency: Quant:
--- NOTE | 2020-06-26 09:19 | HPC ---
[facility] [address] [address] PAIN MANAGEMENT CONSULTATION Name: TAMRA TEJEDA Room #: REG [facility] M..#: [id number] Admission: 06/25/20 Attend Phys: Maddie Campbell Discharge: Date of : 42 Report #: [id number] THIS REPORT FOR: cc: Nima Navarrete MD, Douglas James MD Hocker, Amanda CNS ~ DATE OF SERVICE: 06/25/2020 CHIEF COMPLAINT: Chronic low back pain, bilateral lower extremity pain. HISTORY OF PRESENT ILLNESS: This is a 79-year-old female, seen today for renewal of her opioid medications. Today, she is reporting her pain score of 4/10, which is an average pain. She does state that when she is having increased activity, her pain is significantly higher, but was not able to give me a number. On those days when she anticipates being gone, she does take one and a half Tylenol with Codeine and finds that beneficial in helping reduce her pain enough to go about her activities. On a daily basis she does not report taking Tylenol No. 3. She does continue her morphine sulfate twice a day and finds this effective in controlling her pain. Today the patient reports most of her pain, as always, is located in her low back, it does radiate into her knees and she also has arthritic hand issues. The patient does continue to complain of ongoing constipation issues. This has been an issue that has plagued her for several years. We have tried numerous opioid-induced constipation medications that have not been beneficial. Currently, she is taking lactulose and MiraLax on a daily basis with occasional Senokot, still feel that is not effective. She does report a doctor prescribed her, she believes, Relistor, helped for 1 week and then stopped that medication. She does report daily bowel movements, but always feels bloated and full. ALLERGIES: LATEX, SULFA, METHOCARBAMOL, AMBIEN, AMITRIPTYLINE, BENADRYL, CELEXA, LEVOFLOXACIN, LUNESTA, AND IBUPROFEN. CURRENT LIST OF MEDICATIONS: Morphine sulfate 15 mg b.i.d., Tylenol Cold and Flu p.r.n., calcium, Anoro Ellipta, PreserVision, lactulose, vitamin C, probiotic, tizanidine, sumatriptan p.r.n., Celebrex, Lipitor, MiraLax, fish oil, melatonin, aspirin, Centrum Silver, clonazepam, vitamin D, and Plaquenil. PQRS: 1. She has arthritic changes in her hands and knees. Denies any rheumatoid arthritis, but does take Plaquenil for her lupus. 2. Height is 5 feet, weight is 139, BMI is 27. 3. Vital signs 125/55, pulse is 68, respirations 16, oxygen sat is 99%. 4. Pain score is 4/10. 5. Denies dizziness, does not need assistance for ambulation, has not fallen in the last [address] [address] PAIN MANAGEMENT CONSULTATION Name: TAMRA TEJEDA Room #: REG SIN Ortiz#: [id number] Admission: 06/25/20 Attend Phys: Maddie Campbell Discharge: Date of : 42 Report #: [id number] 6. The patient is not on any blood thinners or medicine for hypertension. 7. Opioid therapy is greater than 6 weeks; therefore, an opioid signed contract is on the chart. Risk assessment is low. Functional assessment is 33/70. 8. Recreational drug use, she denies. She is a former smoker and does not drink alcohol. According to the prescription monitoring system, the patient is past due to fill her medications. She did have two small scripts in March due to the pharmacy's lack of having sufficient supply. PHYSICAL EXAMINATION: GENERAL: This is alert and oriented 79-year-old female who is well-developed, well-nourished, slightly confused at times and looks over several pages to be a good historian, rating her pain a 4/10. HEENT: Normocephalic, atraumatic. Extraocular eye muscles are intact. She is wearing a mask and glasses. EXTREMITIES: No clubbing, no cyanosis, no edema. MUSCULOSKELETAL: She has tenderness over the paraspinal musculature of her lumbar spine. Seated straight leg raising is negative. Modified Gaenslen's is positive for axial low back pain. She has tenderness in her knees bilaterally with no swelling noted. She has a slight forward flexion of her lordotic curve in the standing position. Does not utilize any assistive devices. Tenderness in her wrists bilaterally. ASSESSMENT: 1. Chronic low back pain. 2. Scoliosis. 3. History of lupus. 4. Left knee pain, status post total knee arthroplasty. 5. Chronic intractable pain. 6. Complicated medication management utilizing scheduled opioid medications. 7. Constipation. We reviewed the fact that opiate medications are being used to provide analgesia adequate to support activities of daily living, not attempting to achieve a specific pain score on the 0-10 Visual Analog Scale. The current opiate medications are providing sufficient analgesia to allow the patient to participate in activities of daily living. The patient is not exhibiting any aberrant behavior suggestive of drug diversion. The patient is not having any adverse reactions to medications. The patient is not suffering from daytime somnolence or mental acuity changes. The patient is managing opiate-induced constipation with appropriate kryn-slz-jcpwvpc agents and dietary considerations. The patient was counseled on concern for caution with operating a motor vehicle while using opiate medications. PLAN: [facility] [address] [place] [address] PAIN MANAGEMENT CONSULTATION Name: TAMRA TEJEDA Room #: REG [facility]..#: [id number] Admission: 06/25/20 Attend Phys: Maddie Campbell Discharge: Date of : 42 Report #: [id number] 1. We discussed treatment options with the patient today. The patient feels the morphine and Tylenol No. 3 that she uses sparingly are beneficial in controlling her pain. Unfortunately, she did take her last morphine dose this morning. She is going to try and keep better track of when she needs an appointment. Luckily, she did not go through any withdrawal symptoms. Today, we will have Dr. Kasper send morphine sulfate 15 mg b.i.d. for today and 4-week supply to her pharmacy as well as a refill of her Tylenol No. 3, #60 with 1 refill. 2. We did discuss her ongoing constipation issues. She has seen a senior sales operations manager. They have had her try Relistor since we have seen her last, that was beneficial for 1 week. She continues her lactulose and MiraLax. We encouraged her to take more prune juice and milk of magnesia to see if that is beneficial, instead of offering her another medication. We did briefly discuss Amitiza 24 mcg b.i.d. The patient consulted her list of previous tried medications and it is not on it, that may be a possibility in the future. 3. The patient has taken both her COVID vaccines, which she is thankful for. Time spent with the patient in consultation, reviewing recent studies and clinical notes and physician reports, physical examination, correlation of findings and medical documentation to determine treatments, 20 minutes. Time spent in preparation for appointment, review of prescription monitoring system, review of previous records and proposed treatment options and current medications, 5 minutes. Time spent in preparation and sending electronic prescriptions with collaborating physician, Dr. Kasper and documentation of visit and plan of treatment, 8 minutes. Total time spent 33 minutes. <ELECTRONICALLY SIGNED> By: Maddie Campbell 06/26/20 0919 [id number] Maddie Campbell /nt
== END ==
LOC: PAIN 06:57
PROVIDERS: ATTEND Clinical Nurse Specialist Adult Health
DX: M54.5 Low back pain (principal); G89.29 Other chronic pain; M79.604 Pain in right leg; M25.562 Pain in left knee; M41.9 Scoliosis, unspecified; K59.00 Constipation, unspecified; F11.20 Opioid dependence, uncomplicated; Z87.39 Personal history of other diseases of the musculoskeletal system and connective tissue; Z88.8 Allergy status to other drugs, medicaments and biological substances; Z79.899 Other long term (current) drug therapy

== ENCOUNTER → 2020-08-19 | Outpatient (CLI) | payer OTHER ==
[~2020-08-19] VITALS: Ht 152.4 cm; Wt 65.1 kg
[~2020-08-19] MED LIST changes: +NARCAN4 MG NARES; +PROAIR RESPICL90 MCG INH
[2020-08-19 10:32] VITALS: BP 137/69
--- NOTE | 2020-08-19 10:45 | NUR ---
Pain Clinic Assessment: 1. History of Osteoarthritis: KNEES WRISTS History of Rheumatoid Arthritis: DENIES 2. Height: 5 ft. 0 in. 152.4 cm. Weight: 143.6 lb. oz. 65.136 kg. Patient's BMI: 28.0 3. Vital Signs: BP: 137/69 Pulse: 65 Resp: 14 Temp: 02 Sat: 100 ECG Mon: 4. Pain Intensity: 4 5. Fall Risk: Dizziness: N Needs help standing or walking: N Fallen in the last 3 months: N Fall risk comments: 6. Patient on Blood Thinner: None 7. History of Hypertension: N 8. Opioid Therapy greater than 6 weeks: Y Opiate Contract Signed: 06/09/17 9. Risk Assessment Tool Provided: LOW RISK -2 10. Functional Assessment Tool: 11. Recreational Drug Use: Never Drug Type: Tobacco Use: Former Smoker Tobacco Type: Amount or Packs/day: How Many Years: Alcohol Use: No Frequency: Quant:
--- NOTE | 2020-08-20 08:51 | HPC ---
[facility] [address] [place] [address] PAIN MANAGEMENT CONSULTATION Name: TAMRA TEJEDA Room #: REG [facility] M..#: [id number] Admission: 08/19/20 Attend Phys: Maddie Campbell Discharge: Date of : 44 Report #: [id number] THIS REPORT FOR: cc: Nima Navarrete MD,Maddie Wilkins MD ~ DOC #: [id number] cc: Nima Navarrete MD, DO Maddie Bullock, ARCHELLE DATE OF SERVICE: 08/19/2020 CHIEF COMPLAINT: Chronic low back pain, bilateral lower extremity pain. HISTORY OF PRESENT ILLNESS: As you know, this is a 80-year-old female who returns to the pain clinic today for renewal of her medications. Today, she continues to complain of low back pain that radiates into her knees. She also does have significant joint pain as a result of her lupus. Today, she describes her pain as an aching, constant throbbing sensation that she rates a 4/10. She reports that she has started walking outside, which has increased her pain in her legs and causes them to swell. She also has significant pain with any housework and bending she reports. Overall, she does believe the morphine is beneficial, but would like to have less swelling in her legs with any activity. The patient does not report any daytime somnolence. She does, however, have consistent problems with constipation. Per the patient's report she takes lactulose, probiotic, Senokot-S and MiraLax twice daily and then with this regimen, she is able to have one bowel movement a day. ALLERGIES: LATEX, SULFA, METHOCARBAMOL, AMBIEN, AMITRIPTYLINE, BENADRYL, LUNESTA AND IBUPROFEN. CURRENT MEDICATIONS: Albuterol, Tylenol No. 3, morphine sulfate 15 mg b.i.d., calcium, Anoro Ellipta, PreserVision, lactulose, vitamin C, probiotic, tizanidine, sumatriptan, Celebrex, atorvastatin, MiraLax, vitamin, fish oil, melatonin, aspirin, multivitamin, clonazepam 3 mg, vitamin D and Plaquenil. PQRS: 1. She has arthritic changes in her hands. Denies rheumatoid arthritis, but does have lupus. 2. Height is 5 feet, weight is 143, BMI is 28. 3. Vital signs, blood pressure 137/69, pulse is 65, respirations 14, oxygen sat is 100. 4. Pain score is 4/10. 5. Denies dizziness, does not need help walking or standing, has not fallen in the last 3 months. 6. The patient is not on any blood thinners or medication for hypertension. [facility] [address] [place] [address] PAIN MANAGEMENT CONSULTATION Name: NEGRO TEJEDAColton AGARWALIS Room #: REG [facility] Angel#: [id number] Admission: 08/19/20 Attend Phys: Maddie Campbell Discharge: Date of : 44 Report #: [id number] 7. Opioid therapy is greater than 6 weeks, therefore an opioid signed contract is on the chart. RISK ASSESSMENT: Low. FUNCTIONAL ASSESSMENT: . RECREATIONAL DRUG USE: She denies. She is a former smoker, does not drink alcohol. According to the prescription monitoring system, she is filling her opioids on a timely fashion. She is due to fill these medications today. 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 We did have a lengthy discussion on benzodiazepine use with opioids and encouraged her to have a discussion with Dr. More about decreasing her clonazepam. There is a urine drug screen on the chart and we will repeat that at her next visit. PHYSICAL EXAMINATION: GENERAL: This is alert and orientated 80-year-old female who appears her stated age. She shows no sign of overmedication, rating her pain score at 3/10 today. HEENT: Normocephalic, atraumatic. Extraocular eye muscles are intact. She is wearing a mask and glasses. EXTREMITIES: No clubbing, no cyanosis, no edema. MUSCULOSKELETAL: The patient has tenderness over her paraspinal musculature of her lumbar spine, tenderness in her knees bilaterally, no swelling noted today. The patient has a lordotic curve with a forward flexion in the standing position. Seated straight leg raising is negative. Modified ganglion is positive for axial low back pain. ABDOMEN: Mildly distended. No pain present on palpitation. ASSESSMENT: 1. Chronic low back pain. 2. 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 3. Scoliosis. 4. Lupus. 5. Chronic intractable pain. 6. Opioid dependent, opioid medications on a scheduled agreement. 7. Constipation. PLAN: 1. We discussed treatment options with the patient today. The patient finds the morphine beneficial in helping decrease some of her pain. I encouraged the patient to take it upon arising in the morning and then 12 hours later. The patient has been taking this medication at 6:00 a.m. and then around 9. The patient will alternate her times of administration. I also encouraged her not to take this medication with her benzodiazepine. [facility] [address] [place] [address] PAIN MANAGEMENT CONSULTATION Name: TAMRA TEJEDA Room #: REG [facility]#: [id number] Admission: 08/19/20 Attend Phys: Maddie Campbell Discharge: Date of : 44 Report #: [id number] 2. We had a lengthy discussion about the patient's benzodiazepine use of clonazepam 3 mg tablets, this is prescribed by Dr. More. I encouraged her to talk to him about trying to decrease this medication. We discussed withdrawal symptoms of benzodiazepines and the interaction of opioids and benzodiazepines. Therefore, I have prescribed a prescription of Narcan for her today in case of an emergency. The patient was also provided a written handout on the Narcan medication. The patient to discuss with Dr. More about decreasing slowly a half a tablet every 3 months to wean off or down her clonazepam. 3. We did discuss the patient's ongoing constipation issues. I encouraged her to see a GI specialist. The patient feels that she has gained significant weight, though in reality, it was less than 10 pounds in 2 years. She feels that her abdomen is distended and takes MiraLax, probiotic, lactulose and Senokot-S twice daily every day and has 1 small bowel movement daily. I believe she maybe coming addicted to laxatives and encouraged her to make an appointment with her GI physician. 4. Scripts will be send by Dr. Jose F Strange for her morphine sulfate 15 mg, #60 for today and 4 week supply. This is a 30 MME equivalent to medications, according to the CDC guidelines very low. The patient will return in 2 months. Time spent with the patient in consultation, reviewing recent studies and clinical notes and physician reports, physical examination and correlation of physical findings and medical documentation to determine possible treatment options 18 minutes. Time spent and preparation for appointment reviewing prescription monitoring system reports, reviewing previous records and purposed treatment options, reviewing current medications, 5 minutes. Time spent preparing and sending electronic prescriptions with collaborating physician, Dr. Jose F Strange and documentation of visit and plan of treatment, 5 minutes. Total time spent 28 minutes. RACHELLE Mcneil/MERCEDES/BARRON <ELECTRONICALLY SIGNED> By: Maddie Campbell 08/20/20 [id number] Maddie Campbell /nt
== END ==
LOC: PAIN 07:16
PROVIDERS: ATTEND Clinical Nurse Specialist Adult Health
DX: G89.4 Chronic pain syndrome (principal); M54.5 Low back pain; Z79.891 Long term (current) use of opiate analgesic; Z79.899 Other long term (current) drug therapy

== ENCOUNTER → 2020-10-14 | Outpatient (CLI) | payer OTHER ==
[~2020-10-14] VITALS: Ht 152.4 cm; Wt 63.1 kg
[2020-10-14 10:48] VITALS: BP 115/76
--- NOTE | 2020-10-14 11:23 | NUR ---
Pain Clinic Assessment: 1. History of Osteoarthritis: KNEES WRISTS History of Rheumatoid Arthritis: DENIES 2. Height: 5 ft. 0 in. 152.4 cm. Weight: 139.2 lb. oz. 63.141 kg. Patient's BMI: 27.2 3. Vital Signs: BP: 115/76 Pulse: 72 Resp: 14 Temp: 02 Sat: 98 ECG Mon: 4. Pain Intensity: 0=8 5. Fall Risk: Dizziness: N Needs help standing or walking: N Fallen in the last 3 months: N Fall risk comments: 6. Patient on Blood Thinner: None 7. History of Hypertension: N 8. Opioid Therapy greater than 6 weeks: Y Opiate Contract Signed: 06/09/17 9. Risk Assessment Tool Provided: LOW RISK -2 10. Functional Assessment Tool: 11. Recreational Drug Use: Never Drug Type: Tobacco Use: Former Smoker Tobacco Type: Amount or Packs/day: How Many Years: Alcohol Use: No Frequency: Quant:
--- NOTE | 2020-10-15 13:51 | HPC ---
[facility] [address] [place] [address] PAIN MANAGEMENT CONSULTATION Name: TAMRA TEJEDA Room #: REG [facility] M..#: [id number] Admission: 10/14/20 Attend Phys: Maddie Campbell Discharge: Date of : 42 Report #: [id number] THIS REPORT FOR: cc: Nima Navarrete MD,Nima Campbell,Maddie MART ~ cc: Nima Navarrete MD, Jose F Strange DO DATE OF SERVICE: 10/14/2020 CHIEF COMPLAINT: Chronic low back pain, bilateral lower extremity pain and constipation. HISTORY OF PRESENT ILLNESS: This is a 80-year-old female who returns to the pain clinic today for renewal of her medications. Today, she is rating a pain score of 0 at the present time, though she states that it can be as high as an 8/10 when she is bending or washing or doing housework, especially vacuuming. She states that the heating pad, sitting and her medications are very beneficial in helping relieve her pain. After she uses a heating pad for about 15 minutes, she reports that her pain goes back to 0. She does take Tylenol No. 3 very sparingly and her morphine 15 mg twice a day. The patient continues to have significant constipation issues. Since we have seen her last, she reports calling her GI physician and had a Telemed appointment. They did order a plain x-ray that per her report, she was full of stool. Unfortunately, no further orders have been given to her. She reports taking MiraLax, lactulose and Senokot twice a day with very minimal results. She is considering finding a new interior designer. The patient also reports having shingles outbreak again, since we have last seen her. She reports that her so forth outbreak that she has had of shingles and she has been vaccinated against the shingles. ALLERGIES: LATEX, SULFA, METHOCARBAMOL, AMBIEN, AMITRIPTYLINE, BENADRYL, CELEXA, LEVOTHYROXINE, LUNESTA and IBUPROFEN. CURRENT MEDICATIONS: Morphine sulfate 15 mg b.i.d., Tylenol No. 3 p.r.n., albuterol, calcium, Anoro Ellipta, PreserVision, lactulose, vitamin C, multivitamin, probiotic, tizanidine p.r.n., Imitrex, Celebrex, MiraLax, lactulose, fish oil, melatonin, aspirin, clonazepam 3 mg at night, vitamin D, and Plaquenil. PQRS: 1. 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 Height is 5 feet, weight is 139, this is a decrease of 5 pounds since our last visit. BMI is 27. Vital signs, 115/76, pulse is 72, respirations 14, oxygen sat is 98%. 2. Pain score 0-8 depending on activity. [address] [address] PAIN MANAGEMENT CONSULTATION Name: TAMRA TEJEDA Room #: REG [facility]#: [id number] Admission: 10/14/20 Attend Phys: Maddie Campbell Discharge: Date of : 42 Report #: [id number] 3. The patient denies dizziness, does not need help walking or standing, has not fallen in the last 3 months. 4. The patient is not on any blood thinners or medications for hypertension. 5. Opioid therapy is greater than 6 weeks; therefore, an opioid signed contract is on the chart. 6. Risk assessment is low. Functional assessment is 33/70. 7. Recreational drug use, she denies. She is a former smoker. Does not drink alcohol. According to the prescription monitoring system, the patient is filling appropriately. She is due to fill next week for her morphine and has filled about 2 months ago for her Tylenol No. 3. Her morphine mEq is 30 MME per day. We will check a random drug screen on her at her next visit. PHYSICAL EXAMINATION: GENERAL: This is alert and orientated 80-year-old female who appears her stated age, rating her pain score from 0-8 today depending on activity. HEENT: Normocephalic, atraumatic. Extraocular eye muscles are intact. She is wearing a mask and glasses. EXTREMITIES: No clubbing, no cyanosis, no edema. MUSCULOSKELETAL: The patient has tenderness in her paraspinal musculature of the lumbar spine. She has a lordotic curve with standing. Seated straight leg raising is negative. ABDOMEN: Slightly distended, nontender. BACK: Modified Gaenslen's is positive for axial back pain. ASSESSMENT: 1. Chronic low back pain. 2. Bilateral knee pain status post knee arthroplasty on the left. 3. Scoliosis. 4. Lupus. 5. Chronic intractable pain. 6. Constipation. 7. Opioid dependency, on scheduled opioid medications. We reviewed the fact that opiate medications are being used to provide analgesia adequate to support activities of daily living, not attempting to achieve a specific pain score on the 0-10 Visual Analog Scale. The current opiate medications are providing sufficient analgesia to allow the patient to participate in activities of daily living. The patient is not exhibiting any aberrant behavior suggestive of drug diversion. The patient is not having any adverse reactions to medications. The patient is not suffering from daytime somnolence or mental acuity changes. The patient is managing opiate-induced constipation with appropriate kxjv-cvx-vejhrzn agents and dietary considerations. The patient was counseled on concern for caution with operating a motor vehicle while using opiate medications. [facility] [address] [place] [address] PAIN MANAGEMENT CONSULTATION Name: TAMRA TEJEDA Room #: REG [facility].#: [id number] Admission: 10/14/20 Attend Phys: Maddie Campbell Discharge: Date of : 42 Report #: [id number] A physical exam was performed and the patient's functional status was evaluated. All patients with back pain were advised against the bed rest greater than 4 days and were advised to return to normal activities. Pain score assessment was noted and the treatment plan was reviewed with the patient. All current medications, both prescribed and OTC were reviewed and reconciled on the electronic medical record. Tobacco screening was accomplished and smoking cessation was advised when indicated. BMI was noted and diet/exercise modification was recommended for all patients following outside normal parameters. I reviewed with the patient today their responsibilities to safeguard prescription medications, reviewed their responsibility to utilize medications only as prescribed by the physician. They are to seek and receive pain medications only from 1 physician group ( [facility]). They are to use 1 pharmacy and keep the clinic informed if they change pharmacies. Their responsibilities include making followup visits in a timely fashion and to avoid abrupt discontinuation of medication usage. Their responsibilities further include bringing their medications (bottles from the pharmacy with residual pills) to the visit for possible confirmation of pill counts and the patient understands it is their responsibility to submit to random drug screens to ensure both that the medications prescribed are present, and that no other controlled substances are present. All prescriptions provided today were generated electronically. PLAN: 1. We discussed treatment options with the patient today. I think it would be beneficial for the patient to discuss with her primary care doctor who she is seeing later today to find another GI specialist. We have talked about her constipation in depth in many visits and she continues to have issues. She reports taking MiraLax, lactulose and Senokot-S on a daily basis twice a day with a very minimal results. She has seen her primary this afternoon and will hopefully have a referral to another physician. 2. The patient is wondering if she should see a neurosurgeon for her back. I explained to her that I would first like to have her constipation under control if she has large amounts of stool and that could be causing pain in her lower back and I would first want to resolve this. If she continues to have significant back pain, then we will consider an MRI and a possible neurosurgeon consult. We then will discuss further options. 3. The patient reports having shingles outbreak again since our last visit. I encouraged her to talk to her primary care doctor about a daily low dose of acyclovir or Famvir that hopefully will reduce her outbreaks. 4. We will have Dr. Jose F Strange continue her MS Contin 15 mg twice a day as well as her Tylenol No. 3, #60 tablets with no refills. The patient takes these very sparingly. 5. I again encouraged the patient to reduce her clonazepam intake from 3 mg to [address] [address] PAIN MANAGEMENT CONSULTATION Name: TAMRA TEJEDA Room #: REG [facility]#: [id number] Admission: 10/14/20 Attend Phys: Maddie Campbell Discharge: Date of : 44 Report #: [id number] 2. The patient had discussed this with Dr. More as well. Time spent in consultation, reviewing recent studies and clinical notes and physician reports, physical examination and correlation of findings to determine possible treatment options 17 minutes. Time spent in preparation for appointment, reviewing prescription monitoring system, reviewing previous records and proposed treatment options and reviewing current medications 5 minutes. Time spent preparing and sending electronic prescriptions if appropriate with collaborating physician, documentation of visit and plan of treatment 5 minutes. Total time spent 27 minutes. <ELECTRONICALLY SIGNED> By: Maddie Campbell 10/15/20 [id number] Maddie Campbell /tushar
== END ==
LOC: PAIN 08:40
PROVIDERS: ATTEND Clinical Nurse Specialist Adult Health
DX: M54.5 Low back pain (principal); G89.29 Other chronic pain; M25.561 Pain in right knee; M25.562 Pain in left knee; Z96.652 Presence of left artificial knee joint; M41.9 Scoliosis, unspecified; M32.9 Systemic lupus erythematosus, unspecified; K59.00 Constipation, unspecified; Z79.891 Long term (current) use of opiate analgesic; Z79.899 Other long term (current) drug therapy

== ENCOUNTER → 2020-12-23 | Outpatient (CLI) | payer OTHER ==
[~2020-12-23] MED LIST changes: +VALACYCLOVIR1000 MG PO
--- NOTE | 2020-12-25 08:08 | HPC ---
[facility] [place] [address] PAIN MANAGEMENT CONSULTATION Name: TAMRA TEJEDA Room #: REG [facility] M..#: [id number] Admission: 12/23/20 Attend Phys: Maddie Campbell Discharge: Date of : 44 Report #: [id number] THIS REPORT FOR: cc: Nima Navarrete MD, Douglas James MD Hocker, Amanda CNS ~ cc: Jose F Strange DO, Nima Navarrete MD DATE OF SERVICE: 12/23/2020 CHIEF COMPLAINT: Consent for this visit was obtained for this Telemed appointment. I am proceeding with evaluation under direct request of the patient. I verified that this was the correct patient. She understands that this Telemed encounter is completely voluntary. The patient understands the risks and potential for medical inaccuracies given the recommendations will be based on reported information. The patient understands the benefits of proceeding and alternatives, which include the potential need for subsequent [id number] care. The patient understands that the less privacy and confidentiality applied to this Telemed appointment. The patient verbally agrees to proceed with this Telemed encounter. CHIEF COMPLAINT: Chronic low back pain, bilateral lower extremity pain and paresthesias and ongoing constipation. HISTORY OF PRESENT ILLNESS: This is a 80-year-old female who I am speaking with via telephone today. She does not have audio visual devices. She reports that she has been feeling ill since last . She did not go to the Emergency Room, though her medical writer and nurses have encouraged her to go due to significant shortness of breath. The patient does report she is finally feeling better, but is going to get COVID tested today. She is fully vaccinated against COVID, but is going nonetheless. She has not been running a fever. She does have shortness of breath, achiness all over. The patient reports that her pain is quite significant when she does any activity such as bending over or lifting. Since she has not been feeling well, her pain is minimal, but did not give me a pain score. She states her MS Contin is beneficial, but still has excruciating pain when she is active. She states that since we have seen her last, she has had another shingles outbreak and has now started on valacyclovir on a daily basis at 1 gram every day. She is hopeful that she will have no further outbreaks on her from her shingles. The patient continues to have ongoing constipation issues. She tries to manage this with lactulose, MiraLax and stool softeners. We have tried Movantik and Symproic before. Unfortunately, insurance was not willing to cover these medications. I have encouraged her to talk to a different GI specialist. She reports that they believe it is all opioid related. The patient is on a very low dose of opioids of 30 MME per day. The patient reports having constipation [address] [address] PAIN MANAGEMENT CONSULTATION Name: TAMRA TEJEDA Room #: REG SIN Ortiz#: [id number] Admission: 12/23/20 Attend Phys: Maddie Campbell Discharge: Date of : 44 Report #: [id number] issues her entire life. ALLERGIES: STEROIDS, SULFA, METHOCARBAMOL, AMBIEN, AMITRIPTYLINE, BENADRYL, CELEXA, LEVOFLOXACIN, LUNESTA AND IBUPROFEN. CURRENT LIST OF MEDICATIONS: Morphine sulfate 15 mg b.i.d., Tylenol with Codeine very sparingly, albuterol inhaler, calcium, Anoro Ellipta, PreserVision, lactulose, vitamin C, probiotic, tizanidine, Imitrex, Celebrex, atorvastatin, MiraLax, fish oil, melatonin, aspirin, valacyclovir, multivitamin, clonazepam, vitamin D3 and Plaquenil. PQRS: 1. She has osteoarthritic changes in her wrists, knees and spine. Denies rheumatoid arthritis. Height, weight and vital signs are deferred due to a Telemed appointment. Pain score, she would not rate it today, stating it is very minimal. Fall risk: Denies dizziness, does not need help walking. She has not fallen in the last 3 months. 2. The patient is not on blood thinners or medications for hypertension. Her opioid therapy is greater than 6 weeks; therefore, an opioid signed contract is on the chart. 3. Risk assessment is low. Functional assessment is 33/70. 4. Recreational drug use, she denies. She is a former smoker and does not drink alcohol. According to the prescription monitoring system, she is due to fill her morphine today. She does fill these in a timely fashion. Her MME according to the CDC guidelines is 30. We will collect a random drug screen at her next visit as it was scheduled to be done today. PHYSICAL EXAMINATION: Deferred. The patient does report she has low back pain that radiates into her legs bilaterally. She feels her stomach is bloated due to constipation. She denies any shortness of breath today, but she states that she had this in the past few days. Her voice is strong. She is alert and orientated, answering all my questions appropriately today. ASSESSMENT: 1. Chronic low back pain. 2. Bilateral knee pain, status post knee arthroplasty on the left. 3. Scoliosis. 4. Lupus, on Plaquenil. 5. Chronic intractable pain. 6. Opioid-induced constipation. 7. Opioid dependency utilizing complex medications. PLAN: 1. We discussed treatment options with the patient today. Again, I encouraged [facility] [address] [place] [address] PAIN MANAGEMENT CONSULTATION Name: TAMRA TEJEDA Room #: REG [facility] M..#: [id number] Admission: 12/23/20 Attend Phys: Maddie Campbell Discharge: Date of : 44 Report #: [id number] her to seek a different GI specialist to provide her with a colonoscopy. I also encouraged her that she may be addicted to all of her laxatives that she is using. Unfortunately, we have tried opioid-induced constipation medicines in the past that her insurance is not willing to cover, therefore, she does take lactulose and MiraLax for her ongoing constipation issues. She does have bowel movements. She feels though that she does not empty completely when using her laxatives. 2. We will continue her on her MS Contin 15 mg b.i.d., #60. This will be sent electronically for today and again in [address] Jose F Strange who collaborated care today. 3. The patient reports since she is not feeling well, she has called [facility] to try and set up a COVID test today. I do not believe the patient does have COVID since she has been vaccinated against COVID as well as taking daily hydroxychloroquine for her lupus, but I did encourage nonetheless to be tested. 4. The patient will return in 2 months. At that time, we will collect a urine drug screen. Time spent in consultation, reviewing clinical notes, physician reports, medical documentation to determine possible treatment options - 12 minutes. Time spent in preparation for appointment, reviewing prescription monitoring system reports, reviewing previous records and proposed treatment options, reviewing current medications - 5 minutes. Time spent preparing and sending electronic prescriptions with collaborating physician, Dr. Jose F Strange and documentation of visit and plan of treatment - 5 minutes. Total time spent 22 minutes. <ELECTRONICALLY SIGNED> By: Maddie Campbell 12/25/20 [id number] Maddie Campbell /tushar
== END ==
LOC: PAIN 06:57 → TELEPC 06:57 → PAIN 12:41
PROVIDERS: ATTEND Clinical Nurse Specialist Adult Health
DX: M54.5 Low back pain (principal); M25.561 Pain in right knee; M25.562 Pain in left knee; M32.9 Systemic lupus erythematosus, unspecified; Z79.891 Long term (current) use of opiate analgesic; Z79.899 Other long term (current) drug therapy

== ENCOUNTER → 2021-01-09 | Outpatient (CLI) | payer OTHER | LOC: SJCVCIMAG 11:39 | PROVIDERS: ATTEND Internal Medicine Cardiovascular Disease | DX: I08.8 Other rheumatic multiple valve diseases (principal); I25.10 Atherosclerotic heart disease of native coronary artery without angina pectoris; I10 Essential (primary) hypertension; E78.00 Pure hypercholesterolemia, unspecified; R60.9 Edema, unspecified; H26.9 Unspecified cataract; M54.50 Low back pain, unspecified; G89.29 Other chronic pain; J44.9 Chronic obstructive pulmonary disease, unspecified; I65.29 Occlusion and stenosis of unspecified carotid artery; F32.9 Major depressive disorder, single episode, unspecified; M19.90 Unspecified osteoarthritis, unspecified site; Z79.899 Other long term (current) drug therapy; Z88.1 Allergy status to other antibiotic agents; Z88.2 Allergy status to sulfonamides; Z88.8 Allergy status to other drugs, medicaments and biological substances ==

== ENCOUNTER → 2021-02-12 | Outpatient (CLI) | payer OTHER ==
[~2021-02-12] VITALS: Ht 152.4 cm; Wt 62.5 kg
[2021-02-12 10:37] VITALS: BP 109/52
--- NOTE | 2021-02-12 10:42 | NUR ---
Pain Clinic Assessment: 1. History of Osteoarthritis: KNEES WRISTS History of Rheumatoid Arthritis: DENIES 2. Height: 5 ft. 0 in. 152.4 cm. Weight: 137.8 lb. oz. 62.506 kg. Patient's BMI: 26.9 3. Vital Signs: BP: 109/52 Pulse: 79 Resp: 16 Temp: 02 Sat: 98 ECG Mon: 4. Pain Intensity: 7 5. Fall Risk: Dizziness: N Needs help standing or walking: N Fallen in the last 3 months: N Fall risk comments: 6. Patient on Blood Thinner: None 7. History of Hypertension: N 8. Opioid Therapy greater than 6 weeks: Y Opiate Contract Signed: 06/09/17 9. Risk Assessment Tool Provided: LOW RISK -2 10. Functional Assessment Tool: 11. Recreational Drug Use: Never Drug Type: Tobacco Use: Former Smoker Tobacco Type: Amount or Packs/day: How Many Years: Alcohol Use: No Frequency: Quant:
== END ==
LOC: PAIN 02-11 10:54
PROVIDERS: ATTEND Clinical Nurse Specialist Adult Health
DX: G89.29 Other chronic pain (principal); M54.50 Low back pain, unspecified; M79.661 Pain in right lower leg; M79.662 Pain in left lower leg; M25.561 Pain in right knee; M25.562 Pain in left knee; M41.9 Scoliosis, unspecified; K59.03 Drug induced constipation; F11.20 Opioid dependence, uncomplicated; Z96.652 Presence of left artificial knee joint; Z88.8 Allergy status to other drugs, medicaments and biological substances; Z79.82 Long term (current) use of aspirin; Z79.899 Other long term (current) drug therapy

== ENCOUNTER → 2021-05-05 | Outpatient (CLI) | payer OTHER ==
[~2021-05-05] VITALS: Ht 154.9 cm; Wt 62.6 kg
[2021-05-05 12:46] VITALS: BP 151/88
--- NOTE | 2021-05-05 12:52 | NUR ---
Pain Clinic Assessment: 1. History of Osteoarthritis: KNEES WRISTS History of Rheumatoid Arthritis: DENIES 2. Height: 5 ft. 1 in. 154.9 cm. Weight: 138.0 lb. oz. 62.596 kg. Patient's BMI: 26.1 3. Vital Signs: BP: 151/88 Pulse: 69 Resp: 16 Temp: 02 Sat: 95 ECG Mon: 4. Pain Intensity: 5 5. Fall Risk: Dizziness: Y Needs help standing or walking: N Fallen in the last 3 months: N Fall risk comments: 6. Patient on Blood Thinner: None 7. History of Hypertension: N 8. Opioid Therapy greater than 6 weeks: Y Opiate Contract Signed: 06/09/17 9. Risk Assessment Tool Provided: LOW RISK -2 10. Functional Assessment Tool: 11. Recreational Drug Use: Never Drug Type: Tobacco Use: Former Smoker Tobacco Type: Amount or Packs/day: How Many Years: Alcohol Use: No Frequency: Quant:
== END ==
LOC: PAIN 04-22 10:06
PROVIDERS: ATTEND Clinical Nurse Specialist Adult Health
DX: G89.29 Other chronic pain (principal); M54.50 Low back pain, unspecified; K59.00 Constipation, unspecified; M17.12 Unilateral primary osteoarthritis, left knee; M79.605 Pain in left leg; M79.604 Pain in right leg; M41.9 Scoliosis, unspecified; Z79.82 Long term (current) use of aspirin; Z79.899 Other long term (current) drug therapy; Z88.8 Allergy status to other drugs, medicaments and biological substances